=== PATIENT | male | born 1985 | race Caucasian/White ===

== ENCOUNTER 2018-12-23 23:38 | Emergency (ER) | payer BC, SELFPAY ==
[2018-12-23 23:39] VITALS: BP 152/93; PULSE 84; RESP 14; TEMP 36.3; O2SAT 96; BMI 38.5
--- NOTE | 2018-12-24 | CT_ITS ---
STUDY: CT ABDOMEN AND PELVIS WITHOUT CONTRAST REASON FOR EXAM: Male, 33 years old. Left flank pain. RADIATION DOSAGE (If Supplied By Facility): CTDIvol = ( 18.95 ) mGy, DLP = ( 1046.20 ) mGycm TECHNIQUE: Transaxial images were obtained from the dome of the diaphragm to the symphysis pubis without oral contrast, and without intravenous contrast. Sagittal and coronal images were reconstructed. Individualized dose optimization techniques were used for this CT. COMPARISON: None. FINDINGS: The visualized lung bases are unremarkable. The visualized portions of the heart are within normal limits. Small hiatal hernia. Normal liver. Normal gallbladder and extrahepatic biliary system. Normal spleen. Normal pancreas. Normal bilateral adrenal glands. Normal right kidney. Mild left hydronephrosis secondary to a 2 mm x 1 mm ureterovesicular junction stone. Normal visualized stomach. Normal small intestine. Normal colon. The appendix is visualized and appears normal. Normal abdominal aorta. Normal inferior vena cava. Normal retroperitoneum. No intra-abdominal free air. Normal urinary bladder. Prostate gland not enlarged. Normal abdominal wall. Normal osseous structures. CT/Abdomen/Pelvis without Cont IMPRESSION: Mild left hydronephrosis secondary to a 2 mm x 1 mm ureterovesicular junction stone. Small hiatal hernia. Electronically Signed: Kavon Way MD at 1:10 EST , Service support ,
[2018-12-24] MEDS: Ondansetron 4 MG/2 ML Vial IV (00:08)
[2018-12-24] MEDS: 0.9% Normal Saline 1,000 ML 1000 ML IV (00:08)
[2018-12-24] MEDS: Ketorolac 30 MG/ML Syringe IV (00:08)
[2018-12-24 00:09] LABS: White Blood Cells 0 SEEN /hpf (0-5)
[2018-12-24 00:13] LABS: Color, Urine Yellow (Yellow); Glucose, Dipstick Normal (Normal); Ketone-Dipstick Negative (Negative); Leukocyte Esterase-Dipstick Negative /ul (Negative); Nitrite-Dipstick Negative (Negative); Occult Blood-Urine 50 /ul (Negative); Protein-Dipstick 15 mg/dl (Negative); Urine Bilirubin Dipstick Negative (Negative); Urine Clarity Clear (Clear); Urine Urobilinogen Normal (Normal)
[2018-12-24 00:23] LABS: Bacteria RARE /hpf (None Seen); Mucous, Urine 1+ /hpf (<or=2+); Red Blood Cells-Urine 5-10 SEEN /hpf (0-5)
[2018-12-24 00:24] LABS: Squamous Epithelial Cells - UA 0-5 SEEN /hpf (0-5)
[2018-12-24 00:37] LABS: Absolute Lymphocyte Count 3.68 X10^3/ul (0.83-4.51); Absolute Neutrophil Count 4.6 X10^3/uL (2.0-7.7); Basophil# 0.03 X10^3/uL; Basophil% 0.3 % (0-1); Eosinophil# 0.32 X10^3/uL; Eosinophils% 3.3 % (0-5); Hematocrit 46.4 % (40-54); Hemoglobin 16.5 g/dl (13.0-16.5); Lymphocyte # 3.68 X10^3/ul (4.0); Lymphocyte % 38.3 % (19-41); Mean Corp Hgb Conc 35.6 g/gl (32-36); Mean Corpuscular Hgb 30.1 pg (27.0-32.0); Mean Corpuscular Volume 84.5 fL (80-94); Mean Platelet Vol. 10.7 fl (6.2-12.0); Monocyte% 9.4 % (0-10); Neutrophil # 4.64 X10^3/uL (2.7-7.7); Neutrophil % 48.3 % (47-70); POSITIVE COUNT NO; POSITIVE DIFFERENTIAL NO; POSITIVE MORPHOLOGY NO; Platelet Count 242 K/mm3 (150-450); RBC Distribution Width CV 12.1 % (11.6-14.6); RBC Distribution Width SD 37.1 fl (35.1-43.9); Red Blood Count 5.49 M/mm3 (4.6-6.2); White Blood Count 9.6 K/mm3 (4.4-11.0)
[2018-12-24 00:46] LABS: Anion Gap 9 (5-15); BUN 13 mg/dL (7-18); BUN/Creat Ratio 13.4 RATIO (10-20); Calcium,Total 8.8 mg/dL (8.5-10.1); Chloride 106 mmol/L (98-107); Creatinine, Serum 0.97 mg/dL (0.70-1.30); EST Glomerular Filtration Rate 96 mL/min (>60); Est Glom Filt Rate - Afr Amer 116 mL/min (>60); Estimated Creatinine Clearance 103.16 ml/min; Glucose 86 mg/dL (74-106); Potassium 3.7 mmol/L (3.5-5.1); Sodium Level 142 mmol/L (136-145)
[2018-12-24 01:04] VITALS: RESP 16
[2018-12-24 01:08] VITALS: PULSE 79; RESP 16; O2SAT 96
--- NOTE | 2018-12-24 01:35 | ED.DEP ---
ED Disposition - Plan for ED Patient: Instructions: ED Stone Renal W Colic Prescriptions: Oxycodone HCl/Acetaminophen [Percocet 5/325] 1 tab PO Q6H PRN PRN 3 Days #12 tab PRN Reason: Pain Tamsulosin HCl [Flomax] 0.4 mg PO DAILY #7 cap Referrals: Karla Conrad [Primary Care Provider] - Ilia Murcia MD [STAFF PHYSICIAN] -
[2018-12-24 01:55] VITALS: BP 142/60; PULSE 75; RESP 16; O2SAT 96
--- NOTE | 2018-12-24 07:40 | ED.VISSUMM ---
- ER Visit Summary Date of Service: 12/24/18 Chief Complaint: Abdominal pain History of Present Illness: The patient is a 33 M who presents with abdominal pain. It is been present for 1-1/2 hours. It is sharp. It is located in the left lower quadrant and radiates to the groin and testicle. He also complains of left flank pain. No fever chest pain shortness of breath vomiting diarrhea. He denies any medical history. Physical Examination: Afebrile vitals unremarkable Moist mucous membranes Heart regular rate and rhythm Lungs are clear Abdomen soft he does have some left lower quadrant tenderness No flank or CVA tenderness Test Results: CBC BMP normal. Urinalysis shows 50 blood, 5-[address] of the abdomen and pelvis without contrast shows mild left hydronephrosis with a 2 x 1 mm UVJ calculus. Emergency Department Course and Treatment: Patient was treated here with IV fluids Toradol Zofran. On reevaluation he had red solution of pain. Prior to discharge he did begin to have some return and was given oxycodone. Given symptoms are well controlled with a distal small calculus I do believe he is a good candidate for expectant management. He was given prescriptions for Percocet and Flomax. He was referred to urology for follow-up and discharged home. He understands to return for new or worsening symptoms. Treatment Plan: [] Disposition: Discharge Impression: Ureterolithiasis This note was generated with [employer] dictation software. It may contain incorrect words, spelling, and punctuation that were not noted in review of the chart prior to signing ED Disposition - Plan for ED Patient: Disposition: Home or Assisted Living Instructions: ED Stone Renal W Colic Prescriptions: Oxycodone HCl/Acetaminophen [Percocet 5/325] 1 tab PO Q6H PRN PRN 3 Days #12 tab PRN Reason: Pain Tamsulosin HCl [Flomax] 0.4 mg PO DAILY #7 cap Referrals: Karla Conrad [Primary Care Provider] - Ilia Murcia MD [STAFF PHYSICIAN] -
== END 2018-12-24 01:55 | disposition home or self-care (01) ==
PROVIDERS: Emergency Provider Emergency Medicine; Family Provider Family Medicine; PCP Family Medicine
DX: N13.2 Hydronephrosis with renal and ureteral calculous obstruction (principal)
CPT/HCPCS: 74176; 80048; 81001; 85025; 96361; 96374; 96375; 99284; J7030; A4216; J2405

== ENCOUNTER 2020-03-26 16:46 | Emergency (ER) | payer BC, SELFPAY ==
[2020-03-26 16:47] VITALS: BP 138/100; PULSE 88; RESP 16; TEMP 36.3; O2SAT 97; BMI 37.6
--- NOTE | 2020-03-26 17:28 | ED.VIS.LOWEX ---
History of Present Illness Chief Complaint: Laceration Informant: Patient Occurred: Today Mechanism/Context: Injury - accidentally stepped on something while walking inside his house barefoot Context: Sudden Onset Timing: Continuous Quality of Pain: - - sore Current Severity: Mild Maximum Severity: Mild Worsened by: palpation/walking Relieved by: leaving alone Associated Symptoms: Negative for: Parasthesia, Weakness, Loss of Funtion Narrative: Sustained a laceration that he is concerned may need stitches. No other injuries. Tetanus Immunization: <5 years Past Medical History - Allergies and Home Meds Allergies/Adverse Reactions: Allergies No Known Allergies Allergy (Verified 03/26/20 16:47) Primary Care Physician: Karla Conrad MD [Primary Care Provider] - Lives: With Family Smoking Status: Never smoker Review of Systems Musculoskeletal: Reports: Extremity Pain Skin: Reports: Wounds Neurological: Denies: Headache, Weakness, Numbness Physical Exam Vital Signs/Narrative: Vital Signs Temp Pulse Resp BP Pulse Ox 03/26/20 16:47 97.3 F L 88 16 138/100 H 97 Inital Vital Signs reviewed: Yes - Extremity Exam Left Toe: - - There is a 1 cm full-thickness subcutaneous clean appearing linear laceration to the crease at the IP joint at the plantar aspect of the left fifth toe. No bony tenderness.. Negative for: Deformity, Limited ROM General: Well nourished, Well developed Head: Normocephalic, Atraumatic Skin: Normal color, No rash, Trauma - 1 cm laceration left fifth toe as above Neurological: Alert, Oriented x3, Cranial nerves II-XII grossly intact, Normal Strength, Normal Sensation, Normal Gait Psychological: Normal affect, Normal Mood Diagnostic/Tx/Re-eval - Medical Decision Making Laceration was repaired with 2 skin interrupted nylon sutures. I do not think x-rays are needed. The area is clean and cleansed thoroughly. Suture removal in 7-10 days will likely be adequate. We discussed watching for signs or symptoms of infection, I think it is unlikely to occur and I do not think prophylactic antibiotics are needed. He is agreeable. Procedures - Lacerations left 5th toe Length: 1 cm Depth: Skin Shape: Linear Prep: Sterile Conditions, Chlorhexadine Laceration repair: Irrigated, Lidocaine with epi - topically only Irrigated (ml): 60 Number of Sutures/Kezia: 2 Suture Information: Ethilon, Simple, 4-0 ED Disposition - Plan for ED Patient: Disposition: Home or Assisted Living Diagnosis: Laceration of lesser toe of left foot w/o FB w/o damage to nail Instructions: ED Laceration Foot Referrals: Karla Conrad MD [Primary Care Provider] - 10 Day for suture removal
[2020-03-26] MEDS: Lidocaine/Epi/Tetracaine 50 ML 1 APPLIC TOPICAL (17:37)
[2020-03-26 19:51] VITALS: BP 135/96; PULSE 88; RESP 16; O2SAT 99
== END 2020-03-26 19:53 | disposition home or self-care (01) ==
PROVIDERS: Emergency Provider Emergency Medicine; PCP Family Medicine
DX: S91.115A Laceration without foreign body of left lesser toe(s) without damage to nail, initial encounter (principal); Y93.01 Activity, walking, marching and hiking
CPT/HCPCS: 12001; 99284

== ENCOUNTER 2022-12-24 01:23 | Emergency (ER) | payer BC, SELFPAY ==
[2022-12-24 01:24] VITALS: BP 170/120; PULSE 78; RESP 24; TEMP 36.4; O2SAT 99; BMI 38.0
--- NOTE | 2022-12-24 01:39 | CT_ITS ---
EXAM: CT ABDOMEN AND PELVIS WITH INTRAVENOUS CONTRAST CLINICAL INDICATION: epigastric abd pain epigastric abd pain TECHNIQUE: Helically acquired images were obtained of the abdomen and pelvis with intravenous contrast. This CT exam was performed using one or more of the following dose reduction techniques: automated exposure control, adjustment of the mA and/or kV according to patient size, and/or use of iterative reconstruction technique. This report was created using [employer] report generation technology. CONTRAST: IV 100mL Isovue-370 RADIATION DOSE: CTDIvol = 5.92 mGy, DLP = 1314.92 mGy-cm COMPARISON: None. FINDINGS: LOWER THORAX: Unremarkable. Lung bases are clear. No cardiomegaly. No significant pericardial effusion. ABDOMEN: LIVER: Unremarkable. Homogeneous. No focal mass. GALLBLADDER AND BILE DUCTS: Unremarkable. No calcified gallstones. No gallbladder distention or wall edema. No intra- or extrahepatic biliary ductal dilation. PANCREAS: Unremarkable. No focal cystic or solid mass. SPLEEN: The spleen is mildly enlarged. ADRENALS: Unremarkable. No nodules. KIDNEYS AND URETERS: Unremarkable. Normal renal size and position. No hydronephrosis. STOMACH AND BOWEL: Unremarkable. No stomach or bowel distention. No focal inflammatory change. PELVIS: APPENDIX: A normal appendix is seen on axial images 74-92. BLADDER: Unremarkable. REPRODUCTIVE: Unremarkable as visualized. No mass. ABDOMEN and PELVIS: INTRAPERITONEAL SPACE: Unremarkable. No ascites or other fluid collection. No free air. BONES/JOINTS: There is bilateral spondylolysis at the L5 level without associated spondylolisthesis. No suspicious lytic or blastic abnormality. SOFT TISSUES: Unremarkable. No discrete abdominal or pelvic wall hernia. VASCULATURE: Unremarkable. Abdominal aorta is non-dilated. LYMPH NODES: Unremarkable. No enlarged lymph nodes. CT/Abdomen/Pelvis W IV Cont ONLY IMPRESSION: 1. Mild splenomegaly. 2. Bilateral spondylolysis at the L5 level, without associated spondylolisthesis. 3. No evidence for acute pathology. Electronically Signed: Satnam Campbell MD at 3:42 EST Reading Location ID and State: [facility] / [place] , Service support ,
--- NOTE | 2022-12-24 01:40 | EKG12_ITS ---
Test Reason : ABD PAIN Blood Pressure : / mmHG Vent. Rate : 073 BPM Atrial Rate : 073 BPM P-R Int : 136 ms QRS Dur : 088 ms QT Int : 380 ms P-R-T Axes : 011 000 054 degrees QTc Int : 418 ms Normal sinus rhythm Low voltage QRS (Limb Leads) Confirmed by MARCELINA BECKWITH, IVAN ([id number]), business editor KATARINA HERNANDEZ ([id number]) on 12/24/2022 10:23:22 AM Referred By: Confirmed By:IVAN HEWITT MD
[2022-12-24] MEDS: 0.9% Normal Saline 1,000 ML 1000 ML IV (01:44)
[2022-12-24] MEDS: Ondansetron 4 MG/2 ML Vial IV (01:44)
[2022-12-24] MEDS: Morphine 4 MG/ML Syringe IV (01:44)
[2022-12-24 01:50] LABS: Absolute Neutrophil Count 4.1 X10^3/uL (2.0-7.7); Basophil# 0.06 X10^3/uL; Basophil% 0.7 % (0-1); Eosinophil# 0.24 X10^3/uL; Eosinophils% 2.7 % (0-5); Hematocrit 47.8 % (40-54); Lymphocyte % 39.4 % (19-41); Mean Corp Hgb Conc 33.5 g/dL (32-36); Mean Corpuscular Hgb 28.6 pg (27.0-32.0); Mean Corpuscular Volume 85.5 fL (80-94); Mean Platelet Vol. 10.8 fl (6.2-12.0); Monocyte# 0.92 X10^3/uL; Monocyte% 10.4 % (0-10); NRBC Flagged by Analyzer 0 % (0-5); Neutrophil # 4.13 X10^3/uL (2.7-7.7); Neutrophil % 46.5 % (47-70); Platelet Count 248 K/mm3 (150-450); RBC Distribution Width CV 11.9 % (11.6-14.6); RBC Distribution Width SD 36.8 fl (35.1-43.9); Red Blood Count 5.59 M/mm3 (4.6-6.2); White Blood Count 8.9 K/mm3 (4.4-11.0)
[2022-12-24 02:11] LABS: ALB/GLOB Ratio 1.1 RATIO (0.9-2.4); AST(SGOT) 19 U/L (15-37); Alanine Aminotransfer ALT/SGPT 47 U/L (16-61); Albumin, Serum 4.1 g/dL (3.2-5.0); Alkaline Phosphatase 80 U/L (45-117); Anion Gap 8 (5-15); BUN 16 mg/dL (7-18); BUN/Creat Ratio 13.7 RATIO (10-20); Calcium,Total 9.1 mg/dL (8.5-10.1); Chloride 106 mmol/L (98-107); Creatinine, Serum 1.17 mg/dL (0.70-1.30); EST Glomerular Filtration Rate 75 mL/min (>60); Est Glom Filt Rate - Afr Amer 91 mL/min (>60); Estimated Creatinine Clearance 90.99 ml/min; Globulin 3.7 g/dL (2.2-4.2); Glucose 124 mg/dL (74-106); Lipase 254 U/L (73-393); Potassium 3.6 mmol/L (3.5-5.1); Protein, Total 7.8 g/dL (6.4-8.2); Sodium Level 143 mmol/L (136-145)
[2022-12-24 02:35] LABS: Lactic Acid 1.2 mmol/L (0.4-1.9)
--- NOTE | 2022-12-24 03:36 | EDS_ITS ---
HPI HPI - GI History of Present Illness Chief Complaint: Abd Pain Informant: patient Narrative Narrative: Patient is a 37-year-old male who denies any significant past medical history presented with sudden onset of epigastric abdominal pain that radiates to his back. He describes it as sharp in nature. Has some mild nausea but no vomiting. States he felt well earlier in the day. Had chicken noodle soup for dinner. 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 Denies any surgical history. There is any chest pain. Denies any known family history of significant heart problems especially at a young age however he states he is not really sure. Denies any urinary symptoms. There is a history of kidney stones. No other complaints at this time. PFSH PFSH Medical History no medical history Home Medications famotidine 20 mg tablet (Pepcid) 20 mg PO BID #28 tabs 12/24/22 [Rx Last Taken Unknown] Allergy/AdvReac Type Severity Reaction Status Date / Time No Known Allergies Allergy Verified 12/24/22 01:25 Social History Smoking Status: Never smoker ROS ROS ED Constitutional Constitutional ED: Denies chills or fever(s) ENT ENT ED: Denies sore throat Cardiovascular Cardiovascular: Denies chest pain Respiratory/Chest Respiratory/Chest: Denies cough or dyspnea Gastrointestinal Gastrointestinal: Reports abdominal pain and nausea; Denies constipation, diarrhea or vomiting Genitourinary Genitourinary ED: Denies dysuria or hematuria Musculoskeletal Musculoskeletal: Denies arthralgias or myalgias Integumentary Denies rash Neurologic Neurologic: Denies headache(s) or weakness Hematologic/Lymphatic Hematologic/Lymphatic: Denies easy bleeding or easy bruising EXAM Physical Exam Const Vital Signs: 12/24/22 01:24 Temperature 97.5 F L Temperature Source Oral Pulse Rate 78 Respiratory Rate 24 H Blood Pressure 170/120 H Blood Pressure Mean 136 Pulse Ox 99 Oxygen Delivery Method Room Air Positive well nourished and well developed Constitutional Narrative: Uncomfortable appearing, diaphoretic General Appearance ED: well developed; Negative for pallor HEENT Reports moist mucous membranes normocephalic and atraumatic Eyes PERRL and EOMs intact bilaterally Neck supple and no JVD Resp normal respiratory effort Effort and Inspection: Negative for respiratory distress Cardio regular rate and regular rhythm GI Inspection: abdominal distention Palpation: soft and tender epigastric; Negative for guarding or rigid Back/Spine no CVA tenderness Extremity full ROM Neuro moves all extremities Sensorium / Orientation: alert, oriented to person, oriented to place and oriented to time Psych mental status grossly normal and thought process normal Skin no wounds General Skin Exam: Negative for jaundice or pallor MDM MDM MDM Narrative Medical decision making narrative: Patient evaluated for cute onset of abdominal pain. Says epigastric region and radiates to his back. Differential includes pancreatitis, cholecystitis, stomach ulcer, perforated ulcer, GERD and less likely aortic or cardiac pathology. Bedside ultrasound performed by myself this patient is diaphoretic and hypertensive. I do not see any free fluid, obvious free air or other acute abnormalities. He actually is now starting to have improvement of his pain/symptoms. He is ordered fluids, morphine and Zofran on repeat evaluation his pain is resolved he is feeling much better. Work-up including a CBC, CMP and lipase is largely normal. His total bilirubin is mildly elevated at 1.3 and I do not have a prior to compare to. He does not have a transaminitis. CT of the abdomen pelvis shows mild splenomegaly, bilateral spondylosis of L5 level and no acute process. Patient is informed of these findings. His presentation is not consistent with splenal infarct he is not have tenderness in his left upper quadrant. He denies any trauma. He denies any fever or recent illnesses that you might see with mononucleosis. He does have a slight monocyte predominance however given his symptoms with been present for 1 day I do not think there is high utility for obtaining a Monospot test. I have a low suspicion for pancreatitis given normal CT and normal lipase. Low suspicion for passing a gallstone or biliary colic however it is on the differential. Patient will be started on an antacid and given referral for GI. Counseled the symptoms return/worsen or progress he should return to the ER as the exact cause of his presentation is not entirely clear. At this time given the resolution of his symptoms I think he is stable for outpatient follow-up. Counseled on a low acid and low-fat diet. Discharged home in stable and improved condition. Lab Data Attestation: I reviewed the patient's lab results. Labs: Laboratory Results - last 24 hr 12/24/22 12/24/22 12/24/22 01:44 01:44 01:44 WBC 8.9 RBC 5.59 Hgb 16.0 Hct 47.8 MCV 85.5 MCH 28.6 MCHC 33.5 RDW Std Deviation 36.8 RDW Coeff of Brad 11.9 Plt Count 248 MPV 10.8 Immature Gran % (Auto) 0.300 Neut % (Auto) 46.5 L Lymph % (Auto) 39.4 Culberson % (Auto) 10.4 H Eos % (Auto) 2.7 Baso % (Auto) 0.7 Absolute Neuts (auto) 4.1 Absolute Lymphs (auto) 3.50 Nucleated RBC % 0 Sodium 143 Potassium 3.6 Chloride 106 Carbon Dioxide 29.0 Anion Gap 8 BUN 16 Creatinine 1.17 Estim Creat Clear Calc 90.99 Est GFR (MDRD) Af Amer 91 Est GFR (MDRD) Non-Af 75 BUN/Creatinine Ratio 13.7 Glucose 124 H Lactic Acid 1.2 Calcium 9.1 Total Bilirubin 1.30 H AST 19 ALT 47 Alkaline Phosphatase 80 Total Protein 7.8 Albumin 4.1 Globulin 3.7 Albumin/Globulin Ratio 1.1 Lipase 254 Radiography Diagnostic Testing: Clinical Impression(s) from Imaging Studies Abdomen/Pelvis CT 12/24/22 01:39 IMPRESSION: 1. Mild splenomegaly. 2. Bilateral spondylolysis at the L5 level, without associated spondylolisthesis. 3. No evidence for acute pathology. Electronically Signed: Satnam Campbell MD at 3:42 EST Reading Location ID and State: [facility] / [place] , Service support , Rhythm Strip Rhythm Strip: Sinus Rhythm Rate: 73 Ectopy: None EKG Initial EKG: Attestation: I personally reviewed and interpreted this EKG as follows: Interpretation: Sinus Rhythm Comments: Normal sinus rhythm rate of 73 bpm Normal axis Normal intervals Normal ST segments Discharge Plan Triage Chief Complaint: Abd Pain ED Provider: Jory Bowens Dx/Rx/DC Orders Clinical Impression: Epigastric abdominal pain of unknown etiology Instructions: ED Epigastric Pain Uncertain Cause Prescriptions: New famotidine [Pepcid] 20 mg tablet 20 mg PO BID Qty: 28 0RF Primary Care Provider: Care Physician,No Primary Referrals: Friend,DO Benja [Med Staff - Active Staff] - As soon as possible Care Physician,No Primary [Primary Care Provider] - Activity Restrictions/Additional Instructions: Your work-up was largely normal. The exact cause your symptoms is not clear however Patrick to an antacid in case this is a stomach ulcer. Your CT did show some mild enlargement of the spleen. Again please follow-up with the GI or your primary care doctor for further evaluation of this. If you develop more lo calized pain in the left upper abdomen please return to the emergency room. Disposition Disposition: Home, Self Care
[2022-12-24 04:18] LABS: Bacteria 0 SEEN /hpf (None Seen); Mucous, Urine 0 SEEN /hpf (<or=2+); Red Blood Cells-Urine 0 SEEN /hpf (0-5); Squamous Epithelial Cells - UA 0 SEEN /hpf (0-5); White Blood Cells 0 SEEN /hpf (0-5)
[2022-12-24 04:21] LABS: Color, Urine Yellow (Yellow); Glucose, Dipstick Normal (Normal); Ketone-Dipstick Negative (Negative); Leukocyte Esterase-Dipstick Negative /ul (Negative); Nitrite-Dipstick Negative (Negative); Occult Blood-Urine Negative /ul (Negative); Protein-Dipstick Negative (Negative); Urine Bilirubin Dipstick Negative (Negative); Urine Clarity Clear (Clear); Urine Urobilinogen Normal (Normal)
[2022-12-24 04:30] VITALS: BP 118/82; PULSE 62; RESP 18; O2SAT 98
== END 2022-12-24 04:48 | disposition home or self-care (01) ==
PROVIDERS: Emergency Provider Emergency Medicine; Visit Provider Emergency Medicine
DX: R10.13 Epigastric pain (principal)
CPT/HCPCS: 74177; 80053; 81001; 83605; 83690; 85025; 93005; 96361; 96374; 96375; 99283; J7030; Q9967; A4216; J2405

== ENCOUNTER 2023-03-03 09:44 | Day surgery (SDC) | payer BC, SELFPAY ==
--- NOTE | 2023-03-03 | ESO_PTH ---
PATIENT: JIMENA READ LOC: EN U#:[id number] AGE/SX: 38/M ROOM: RE03/03/[address]: Dr. Benja Morton DO : 1985 BED: DIS: 03/03/2023 SPEC #: [id number] RECD: 03/03/23 13:12 STATUS: ETTA REChristine #: [id number] RHETT: 03/03/23 00:[address]: Benja Morton DEPT: SURGICAL PATHOLOGY RECD BY: Landon Kern ENTERED: 03/03/23 13:12 SP TYPE: NASIMA EDWARDS DR: No Primary Care Phys Tissues: Esophagus, NOS Procedures: Special Stain Group II Surgery Specimen Level IV Alcian Blue/PAS (control) HEADER OPERATION: EGD ([facility] [place]), biopsy PRE-OP DIAGNOSIS: Acid reflux TISSUE SUBMITTED: Distal esophagus biopsy MICROSCOPIC DIAGNOSIS Distal esophagus, biopsy: Gastroesophageal junctional mucosa with mild chronic inflammation. Changes of reflux esophagitis. No evidence of goblet cell metaplasia. See comment. AM:dinah 03/04/2023 COMMENT Alcian blue/PAS stain with matched control supports the above diagnosis. MICROSCOPIC DESCRIPTION Slides are reviewed. GROSS DESCRIPTION Received in fixative is one container labeled with the patient's name and designated distal esophagus. The specimen consists of multiple irregular fragments of light carroll soft tissue that in aggregate measure 1.0 x 0.5 x 0.1 cm. The specimen is totally submitted in one cassette. / AM:dinah 03/03/2023 TC:3 CPT: 57458
[2023-03-03 10:20] VITALS: BP 139/99; PULSE 78; RESP 16; TEMP 36.3; O2SAT 100; BMI 39.5
[2023-03-03] MEDS: Lactated Ringers 1,000 ML 15 ML IV (10:28)
--- NOTE | 2023-03-03 10:32 | PCM.HP.BLA ---
History and Physical Date of Admission: 03/03/23 37 M who presents to the office today for Initial consult. PMH shingles. [facility] ED 12.24.18 with LLQ abd pain radiating into groin/testicles and L flank pain without N/V/D or CP. Biochemical workup and imaging without acute concern; likely distal small calculus and discharged with Flomax, pain medication and referral to urology. ?CT abd/pel?normal liver and spleen; small hiatal hernia; mild left hydronephrosis secondary to 2x1mm ureterovesicular stone. [facility] 12.24.22 with epigastric/abdominal pain radiating into the back with mild nausea without emesis; went to bed with this pain and continued to get worse throughout the night. Recalls similar symptoms 15 years prior with use of antacid for management. Imaging and biochemical workup completed without acute finding and discharged with famotidine 20mg. Reports symptom improvement with IVF. ?Biochemical workup?CBC, CMP, lactic acid, LFT, lipase without pertinent abnormality. ? T.bili H1.30 ?CT abd/pel?normal liver; mild splenomegaly; bilateral spondylolysis without spondylolisthesis. *BGI established 12.26.[address] [facility] ED presentation. Abdominal/epigastric pain had resolved with an improvement of nausea. On a routine basis he is having heartburn with TUMs administration midday which is helpful. He does clear his throat a lot r/t an abnormal sensation in the back of his throat, possible allergy component. ROS Const Constitutional: No anorexia, fatigue, fever(s), weight change or sleep problems Eyes Eyes: No change in vision ENT ENT: No abnormal hearing, difficulty swallowing, mouth lesions, tongue swelling or throat swelling Resp Respiratory: No cough or shortness of breath Cardio Cardiology: No chest pain at rest, chest pain with exertion, shortness of breath or dyspnea on exertion Gastro GI: No difficulty swallowing Genitourinary Male: No difficulty urinating or burning urination Musc Musculoskeletal: No joint pain, joint swelling, muscle weakness or decreased muscle mass Skin Skin: No hair loss in leg, yellowing of the eye, itchy eyes, rash, skin ulcer or skin swelling Neuro Neurology: No abnormal hearing, abnormal movements, confusion, unsteady gait/balance or memory loss Psych Psychiatric: No anxiety, No confusion and No memory loss Endo Endocrine: No fatigue or weight change Aller/Imm Allergy/Immunologic: No itchy eyes, throat swelling or tongue swelling David/Lymp Hematologic/Lymphatic: No easy bleeding, easy bruising or enlarged lymph nodes Exam Const General: cooperative and comfortable Nutritional Appearance: average body habitus and well nourished HENUT Head: normal to inspection Ears: hearing grossly normal bilaterally Nose: external nose normal Face and sinus: normal facial exam Mouth: oral mucosae normal Throat: posterior oropharynx normal Eyes General: appearance normal, both eyes and all related structures Neck Neck: normal visual inspection Chest Chest palpation & inspection: normal inspection of the chest and normal palpation of entire chest wall Resp Effort & Inspection: normal respiratory effort Auscultation: Bilateral: Clear to Auscultation Cardio Palpation: normal PMI Rate: regular rate Rhythm: regular rhythm GI Inspection: normal to inspection Auscultation: normal bowel sounds Percussion: normal to percussion Palpation: no hepatosplenomegaly Skin General: no rashes or lesions noted Neuro General: patient alert Extrem General: normal to inspection Psych Affect: normal affect Quality Reporting Tobacco Screening ([facility] 138) Smoking Status: Never smoker Assessment and Plan Assessment and Plan (1) Acid reflux: ?Status:?Chronic ?Plan: He has signs and symptoms of classic gastroesophageal reflux disease.? I will put him on pantoprazole 40 mg p.o. twice daily and we will perform an upper endoscopy to evaluate him for Reardon's esophagus.? He was explained alternatives, risk, benefits including outstanding bleeding, infection, sepsis, perforation, need for emergent urgent .? He will have an ASA of 1. ? ? ? Medications: New pantoprazole 40 mg PO BID 60 tabs 3RF ? ? Is I have examined the patient and the H&P has been reviewed. There are no clinical changes since date of exam.
--- NOTE | 2023-03-03 11:29 | OP.CCLET_ITS ---
03/03/2023 No Primary Care Physician Re : Upper GI endoscopy procedure for Calvin Norwood Dear Care Physician This procedure was performed on Friday, March 03, 2023. My impressions and recommendations are as follows: Impressions : - LA Grade C reflux esophagitis. Biopsied. - Normal stomach. - Normal second portion of the duodenum. Biopsied. Recommendations : - Discharge patient to home. - Resume previous diet. - Continue present medications. - Await pathology results. My findings are described in the full procedure note, which is enclosed. If I can be of further assistance, please feel free to contact me at . Sincerely, Benja Morton, 03/03/2023 11:29:04 AM This report has been signed electronically.
--- NOTE | 2023-03-03 11:29 | OP.EGD_ITS ---
Patient Name: Calvin Norwood Procedure Date: 03/03/2023 11:11 AM Date of : 1985 Age: 38 Procedure: Upper GI endoscopy Indications: Heartburn Providers: Benja Morton DO Referring MD: Benja Morton DO Medicines: Monitored Anesthesia Care Patient Profile: This is a 38 year old male. Refer to note in patient chart for documentation of history and physical. Patient has symptoms of chronic heartburn. Complications: No immediate complications. Procedure: Pre-Anesthesia Assessment: - Prior to the procedure, a History and Physical was performed, and patient medications and allergies were reviewed. The risks and benefits of the procedure and the sedation options and risks were discussed with the patient. All questions were answered and informed consent was obtained. Patient identification and proposed procedure were verified by the physician in the pre-procedure area. Mental Status Examination: alert and oriented. Airway Examination: normal oropharyngeal airway and neck mobility. Respiratory Examination: clear to auscultation. CV Examination: normal. Prophylactic Antibiotics: The patient does not require prophylactic antibiotics. Prior Anticoagulants: The patient has taken no previous anticoagulant or antiplatelet agents. After reviewing the risks and benefits, the patient was deemed in satisfactory condition to undergo the procedure. The anesthesia plan was to use monitored anesthesia care (MAC). Immediately prior to administration of medications, the patient was re-assessed for adequacy to receive sedatives. The heart rate, respiratory rate, oxygen saturations, blood pressure, adequacy of pulmonary ventilation, and response to care were monitored throughout the procedure. The physical status of the patient was re-assessed after the procedure. After obtaining informed consent, the endoscope was passed under direct vision. Throughout the procedure, the patient's blood pressure, pulse, and oxygen saturations were monitored continuously. The Endoscope was introduced through the mouth, and advanced to the second part of duodenum. The upper GI endoscopy was accomplished without difficulty. The patient tolerated the procedure well. Scope In: 11:20:47 AM Scope Out: 11:23:56 AM Total Procedure Duration Time 0 hours 3 minutes 9 seconds Findings: LA Grade C (one or more mucosal breaks continuous between tops of 2 or more mucosal folds, less than 75% circumference) esophagitis with no bleeding was found 35 to 38 cm from the incisors. Biopsies were taken with a cold forceps for histology. Verification of patient identification for the specimen was done. Estimated blood loss was minimal. The entire examined stomach was normal. The second portion of the duodenum was normal. Biopsies were taken with a cold forceps for histology. Verification of patient identification for the specimen was done. Estimated blood loss was minimal. Impression: - LA Grade C reflux esophagitis. Biopsied. - Normal stomach. - Normal second portion of the duodenum. Biopsied. Recommendation: - Discharge patient to home. - Resume previous diet. - Continue present medications. - Await pathology results. Procedure Code(s): --- Professional --- 70485, Esophagogastroduodenoscopy, flexible, transoral; with biopsy, single or multiple CPT copyright 2017 [employer]. All rights reserved. The codes documented in this report are preliminary and upon supervisor dry cleaning review may be revised to meet current compliance requirements. Benja Morton DO 03/03/2023 11:29:04 AM This report has been signed electronically. Number of Addenda: 0 Note Initiated On: 03/03/2023 11:11 AM
[2023-03-03 11:30] VITALS: BP 139/99; BP 143/73; PULSE 84; RESP 16; TEMP 36.7; O2SAT 95
[2023-03-03 11:35] VITALS: BP 128/79; BP 139/99; PULSE 78; RESP 16; O2SAT 94
[2023-03-03 11:40] VITALS: BP 118/87; BP 139/99; PULSE 79; RESP 16; O2SAT 94
[2023-03-03 11:45] VITALS: BP 123/84; BP 139/99; PULSE 73; RESP 16; TEMP 36.7; O2SAT 94
[2023-03-03 12:12] VITALS: BP 139/99
== END 2023-03-03 12:14 | disposition home or self-care (01) ==
LOC: EN 09:48 → AC 09:49
PROVIDERS: Visit Provider Internal Medicine Gastroenterology
PROC: 0DJ08ZZ Inspection of Upper Intestinal Tract, Via Natural or Artificial Opening Endoscopic (ICD-10-PCS; CPT 43235; principal; 2023-03-03 11:10)
DX: K21.00 Gastro-esophageal reflux disease with esophagitis, without bleeding (principal); Z79.899 Other long term (current) drug therapy
CPT/HCPCS: 43239; 88305; 88313; J7120; J2405

== ENCOUNTER 2024-09-11 22:16 | Observation (INO) | payer BC, SELFPAY ==
[2024-09-11 22:17] VITALS: BP 187/127; PULSE 72; RESP 18; TEMP 36.6; O2SAT 98; BMI 40.8
--- OUTSIDE RECORDS SUMMARY | 2024-09-11 22:43 | XMS RPT_ITS | CCD ---
Author Organization [facility] Care Team Providers Care Medical Affairs Manager Name Role Phone BERE CONRAD Unavailable Unavailable JUAN JOSÉI, ALEXELIDIA Unavailable Unavailable NO REFERRING DR Unavailable Unavailable Juan Joséi Alexelidia Primary Care Provider Juan JoséiBere Primary Care Provider [phone] LiscathyskiJimenaia Primary Care Provider LISZECHARIAHI, ALEXIA Primary Care Unavailable BARB TALAVERA Attending Unavailable LISRICKEYEVLUCYI, BERE Primary Care Unavailable LISRICKEYEVLUCYI, ALEXIA Primary Care Unavailable LISRICKEYEVSKI, ALEXIA Primary Care Unavailable LISZECHARIAHI, ALEXIA Primary Care Unavailable Juan Joséi Alexia Primary Care Provider Medications Current Medications Medication Drug Class(es) Dates Sig (Normalized) Sig (Original) amoxicillin 875 mg oral tablet (2 sources) Penicillin-class Antibacterial Start: 07-28-2023 End: 08-04-2023 take 1 tablet by mouth twice daily amoxicillin (AMOXIL) 875 mg tablet Indications: Acute otitis media, right Take 1 tablet by mouth twice daily for 7 days. 14 tablet 0 07/28/2023 08/04/2023 Active Start: 09-02-2022 End: 09-12-2022 take 1 capsule by mouth twice daily amoxicillin (POLYMOX, AMOXIL) 500 mg capsule Indications: Strep throat Take 1 capsule by mouth twice daily for 10 days. 20 capsule 0 09/02/2022 09/12/2022 Active Comment on above: Take 1 capsule by mo ut twice daily for 10 days. Take 1 tablet by astrid twice daily for 7 days. brompheniramine maleate 0.4 mg/ml / dextromethorphan hydrobromide 2 mg/ml / pseudoephedrine hydrochloride 6 mg/ml oral solution (10 sources) alpha-Adrenergic Agonist, Uncompetitive L-cchhiy-Z-aspartate Receptor Antagonist, Sigma-1 Agonist Start: 02-08-20 19 take 5-10 mL by mouth every six hours as needed Brompheniramine-Ps eudoeph-DM (BROMFED DM) 2-30-10 mg/5 mL syrup Indications: URI, acute Take 5-10 ml po q6h prn 120 mL 02/07/2019 Active Comment on above: Take 5-10 ml po q6h prn mupirocin 0.02 mg/mg topical ointment (10 sources) RNA Synthetase Inhibitor Antibacterial Start: 10-06-20 18 mupirocin (BACTROBAN) 2 % ointment Indications: Puncture wound of great toe of left foot, initial encounter Apply 1 application to affected area three times daily. Location: left great toe 22 g 10/06/2018 Active Comment on above: Apply 1 application to affected area three times daily. Location: left great toe Completed/Discontinued Medications Medication Drug Class(es) Dates Sig (Normalized) Sig (Original) meloxicam 15 mg oral tablet (9 sources) Nonsteroidal Anti-inflammatory Drug Start: 01-23-2022 take 1 tablet by mouth once daily at mealtime meloxicam (MOBIC) 15 mg tablet Take 1 tablet by mouth once daily. With food. 30 tablet 1 01/23/2022 Active Comment on above: Take 1 tablet by astrid th once daily. With food. pantoprazole 40 mg delayed release oral tablet (2 sources) Proton Pump Inhibitor Start: 03-20-2023 take 1 tablet by mouth once daily pantoprazole DR (PROTONIX) 40 mg tablet Take 40 mg by mouth once daily. 0 03/20/2023 Active Comment on above: Take 40 mg by mouth once daily. Problems Active Problems Problem Classification Problem Date Documented Da te Episodic/Chronic Abdominal pain (10 sources) Epigastric pain; Translations: [Epigastric pain] 07-31-2016 Episodic Immunizations and screening for infectious disease (1 source) Exposure to streptococcal pharyngitis; Translations: [Contact with and (suspected) exposure to other bacterial communicable diseases] Episodic Inflammation; infection of eye (except that caused by tuberculosis or sexually transmitteddisease) (1 source) Acute atopic conjunctivitis of right eye; Translations: [Acute atopic conjunctivitis, right eye] Episodic Other non-traumatic joint disorders (1 source) Pain in right knee; Translations: [Pain in joint, lower leg] Episodic Other upper respiratory disease (1 source) Seasonal allergic rhinitis; Translations: [Other seasonal allergic rhinitis] Chronic Other upper respiratory infections (6 sources) Sore throat symptom; Translations: [Acute pharyngitis, unspecified] Episodic Otitis media and related conditions (1 source) Acute right otitis media; Translations: [Otitis media, unspecified, right ear] 07-28-2023 Episodic Past or Other Problems Problem Classification Problem Date Documented Da te Episodic/Chronic Other connective tissue disease (3 sources) Other bursitis of knee, right knee; Translations: [OTHER BURSITIS OF KNEE R] Onset: 02-20-2017 Episodic Results Test Name Value Interpretation Reference Range Facil ity CNOVon 07-28-2023 CN Office Visit ([facility] ) ANAYELIJIMENA WEBER ([id number]) 1985 M Date Time Provider Department 07/28/23 10:45 AM TAMARA WYNNE [facility] During your visit today, we recorded the following information about you: Temperature Pulse Respiration Blood pressure 96.9 degrees 80/minute 20/minute 122/76 Weight 119 kg Tamara Wynne APRN.CNP 07/28/2023 10:52 AM Signed CC: Patient presents with: Ear Pain: Right ear pain x 4 days HPI: Jimena Norwood is a 38 year old male who presents to the office with complaint of ear symptoms for a few days. Symptoms are worsening Associated symptoms includes ear pain and ear pressure . Denies headache, body aches, fever, nausea, vomiting , and diarrhea. Treatments tried include nothing so far. with no relief of symptoms. Sick contacts: unknown. History of asthma, frequent episodes of bronchitis, chronic bronchitis, bronchiectasis or COPD: No Smoker: No Seasonal/environmenta l allergies: No The ROS is otherwise negative. The patient's pmh, medications, allergies, and past visits are reviewed. PHYSICAL EXAM: BP 122/76 Pulse 80 Temp 36.1 ?C (96.9 ?F) Resp 20 Wt 119 kg (262 lb 6.4 oz) SpO2 100% BMI 38.75 kg/m? General appearance: alert, cooperative, pleasant, in no acute distress Head: Normocephalic Eyes: EOM's intact, conjunctiva pink and moist, no icterus, sclera white, non-injected Ears: Right ear: External ear/canal- Normal, TM - erythematous, bulging. Left ear: External ear/canal- Normal, TM - clear with good landmarks Oropharynx:moist without lesions, No erythema, exudates or tonsillar hypertrophy. PAST MEDICAL HISTORY Diagnosis Date Epigastric pain Indigestion Knee pain -right Known medical problems Pes anserinus tendinitis and bursitis Patellar tendonitis - right Pes planus Sprain of interphalangeal joint of finger - right PAST SURGICAL HISTORY Procedure Laterality Date PAST SURGICAL HISTORY OF 08/2010 Oral surgery ALLERGIES Patient has no known allergies. MEDICATIONS pantoprazole DR (PROTONIX) 40 mg tablet Take 40 mg by mouth once daily. amoxicillin (AMOXIL) 875 mg tablet Take 1 tablet by mouth twice daily for 7 days. meloxicam (MOBIC) 15 mg tablet Take 1 tablet by mouth once daily. With food. (Patient not taking: Reported on 12/23/2022) Brompheniramine-Pseud oeph-DM (BROMFED DM) 2-30-10 mg/5 mL syrup Take 5-10 ml po q6h prn (Patient not taking: Reported on 01/16/2022 ) mupirocin (BACTROBAN) 2 % ointment Apply 1 application to affected area three times daily. Location: left great toe (Patient not taking: Reported on 01/17/2019 ) FAMILY HISTORY Problem Relation Age of Onset other (Diabetes mellitus) Sister other (Diabetes mellitus) Other other (Diabetes mellitus) Other Hyperlipidemia Father Hypertension Father Hyperlipidemia Brother Hypertension Brother Social History Tobacco Use Smoking status: Never Smokeless tobacco: Never Vaping Use Vaping Use: Never used Substance Use Topics Alcohol use: Yes Comment: socially Drug use: No ASSESSMENT/PLAN: 1. Acute otitis media, right - ICD9: 382.9, ICD10: H66.91 - AMOXICILLIN 875 MG TABLET Was educated about proper use of medication supportive therapies. Patient will follow-up if signs and symptoms seem to be getting worse not better. Patient was okay with this care plan. Prescription instructions reviewed with patient as applicable. Potential red flag symptoms discussed with the patient. Reviewed appropriate action plan to take if red flag symptoms occur. Patient agreeable to treatment plan. Tamara Wynne APRN.INTERACTIVE MEDIA MARKETING STRATEGIST Allergies As of Date: 07/28/2023 (No Known Allergies) Date Reviewed: 07/28/2023 Reviewed by: Gissel Zuluaga MA - Fully Assessed Reason for Visit: Ear Pain [817] Cmt: Right ear pain x 4 days Primary Visit Diagnosis:Acute otitis media, right [H66.91] Order(s):amoxicillin (AMOXIL) 875 mg tabletTake 1 tablet by mouth twice daily for 7 days.Disp: 14 tabletRfl: 0 Prescriptions as of 07/28/2023 - amoxicillin (AMOXIL) 875 mg tablet Take 1 tablet by mouth twice daily for 7 days. - pantoprazole DR (PROTONIX) 40 mg tablet Take 40 mg by mouth once daily. - meloxicam (MOBIC) 15 mg tablet Take 1 tablet by mouth once daily. With food. - Brompheniramine-Pseud oeph-DM (BROMFED DM) 2-30-10 mg/5 mL syrup Take 5-10 ml po q6h prn - mupirocin (BACTROBAN) 2 % ointment Apply 1 application to affected area three times daily. Location: left great toe Problem List As Of Date 07/28/2023 Noted Resolved Epigastric pain [R10.13] Prescriptions ordered this encounter Disp Refills Start End AMOXICILLIN 875 MG TABLET 14 t* 0 07/28/2023 08/04/2023 Route: ORAL Sig: Take 1 tablet by mouth twice daily for 7 days. Encounter Status:Closed by TAMARA WYNNE on 07/28/23 [facility] Atilio 03-25-2023 CNOV Office Visit ([facility] ) JIMENA NORWOOD ([id number]) 1985 M Date Time Provider Department 03/25/23 11:15 AM JASMYNE KEMP [facility] During your visit today, we recorded the following information about you: Temperature Pulse Respiration Blood pressure 97.1 degrees 78/minute 16/minute 122/80 Weight 122.1 kg Jasmyne Kemp APRN.INTERACTIVE MEDIA MARKETING STRATEGIST 03/25/2023 11:39 AM Signed Subjective Sore Throat Associated symptoms include headaches. Pertinent negatives include no abdominal pain, congestion, coughing, diarrhea, ear pain or vomiting. Jimena Norwood is a 38 year old male who presents with body aches and sore throat. He has had this for one day. His kids were recently diagnosed with strep- one as recently as yesterday. He has not had a fever. Review of Systems Constitutional: Negative for chills and fever. HENT: Positive for sore throat. Negative for congestion and ear pain. Respiratory: Negative for cough. Cardiovascular: Negative. Gastrointestinal: Negative for abdominal pain, diarrhea, nausea and vomiting. Musculoskeletal: Positive for myalgias. Skin: Negative. Neurological: Positive for headaches. BP 122/80 Pulse 78 Temp 36.2 ?C (97.1 ?F) (Tympanic) Resp 16 Wt 122.1 kg (269 lb 3.2 oz) SpO2 96% BMI 39.75 kg/m? PAST MEDICAL HISTORY Diagnosis Date Epigastric pain Indigestion Knee pain -right Known medical problems Pes anserinus tendinitis and bursitis Patellar tendonitis - right Pes planus Sprain of interphalangeal joint of finger - right PAST SURGICAL HISTORY Procedure Laterality Date PAST SURGICAL HISTORY OF 08/2010 Oral surgery ALLERGIES Patient has no known allergies. MEDICATIONS pantoprazole DR (PROTONIX) 40 mg tablet Take 40 mg by mouth once daily. meloxicam (MOBIC) 15 mg tablet Take 1 tablet by mouth once daily. With food. (Patient not taking: Reported on 12/23/2022) Brompheniramine-Pseud oeph-DM (BROMFED DM) 2-30-10 mg/5 mL syrup Take 5-10 ml po q6h prn (Patient not taking: Reported on 01/16/2022 ) mupirocin (BACTROBAN) 2 % ointment Apply 1 application to affected area three times daily. Location: left great toe (Patient not taking: Reported on 01/17/2019 ) FAMILY HISTORY Problem Relation Age of Onset other (Diabetes mellitus) Sister other (Diabetes mellitus) Other other (Diabetes mellitus) Other Hyperlipidemia Father Hypertension Father Hyperlipidemia Brother Hypertension Brother Social History Tobacco Use Smoking status: Never Smokeless tobacco: Never Vaping Use Vaping Use: Never used Substance Use Topics Alcohol use: Yes Comment: socially Drug use: No Objective Physical Exam Vitals and nursing note reviewed. Constitutional: Appearance: Normal appearance. HENT: Right Ear: Tympanic membrane, ear canal and external ear normal. Left Ear: Tympanic membrane, ear canal and external ear normal. Nose: Nose normal. Mouth/Throat: Mouth: Mucous membranes are moist. Pharynx: Uvula midline. Posterior oropharyngeal erythema present. No oropharyngeal exudate. Cardiovascular: Rate and Rhythm: Normal rate and regular rhythm. Heart sounds: Normal heart sounds. Pulmonary: Effort: Pulmonary effort is normal. No respiratory distress. Breath sounds: Normal breath sounds. No wheezing or rales. Musculoskeletal: Cervical back: Neck supple. Lymphadenopathy: Cervical: No cervical adenopathy. Skin: General: Skin is warm and dry. Findings: No erythema or rash. Neurological: Mental Status: He is alert. ASSESSMENT/PLAN: 1. Sore throat - ICD9: 462, ICD10: J02.9 - suspect viral - Alere Strep Test negative, no culture pending - Discussed supportive care treatment with fluids, rest and analgesia. - STREP A MOLECULAR (POC) - Follow-up with your PCP in 3-5 days if symptoms have not improved or sooner if symptoms worsen - Discussed red flags and need for immediate medical evaluation if any occur. - Discussed supportive care treatment with fluids, rest and analgesia. - Discussed expected course of illness MARK Fritz APRN.CNP 03/25/2023 11:38 AM Signed ASSESSMENT/PLAN: 1. Sore throat - ICD9: 462, ICD10: J02.9 - suspect viral - Alere Strep Test negative, no culture pending - Discussed supportive care treatment with fluids, rest and analgesia. - STREP A MOLECULAR (POC) - Follow-up with your PCP in 3-5 days if symptoms have not improved or sooner if symptoms worsen - Discussed red flags and need for immediate medical evaluation if any occur. - Discussed supportive care treatment with fluids, rest and analgesia. - Discussed expected course of illness Jasmyne Kemp APRN.INTERACTIVE MEDIA MARKETING STRATEGIST SORE THROAT INSTRUCTIONS SORE THROAT OVERVIEW - Sore throat is a common problem during childhood, and is usually the result of a bacterial or viral infection. Although sore throat usually r (more content not included)... Normal [facility] STREP A MOLECULAR (POC)on Procedural Control Valid [facility] Strep A (POCT) Negative Negative [facility] CNOVon 12-23-2022 CNOV Office Visit ([facility] ) JIMENA NORWOOD ([id number]) 1985 M Date Time Provider Department 12/23/22 10:00 AM JASMYNE KEMP [facility] During your visit today, we recorded the following information about you: Temperature Pulse Respiration Blood pressure 97.7 degrees 75/minute 23/minute 122/76 Weight 120.5 kg Angelique Guzman 12/23/2022 11:22 AM Signed This note was created using [employer]. Subjective Jimena Norwood is a 37 year old male CC of right eye drainage that started a week and a half ago and recently noticed waking up with R eye crusts (yellow) that started a couple of days ago. Reports that friends daughter had pink eye. 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 Wears eye protection at work. No history of environmental allergies. Review of Systems Constitutional: Negative for chills, diaphoresis, fatigue and fever. HENT: Positive for sinus pressure. Negative for congestion, ear pain, rhinorrhea, sinus pain and sore throat. Eyes: Positive for discharge (clear) and itching. Negative for photophobia, pain, redness and visual disturbance. Respiratory: Positive for cough (productive, one month). Negative for shortness of breath and wheezing. Cardiovascular: Negative for chest pain. Gastrointestinal: Negative for abdominal pain, diarrhea, nausea and vomiting. Allergic/Immunologic: Positive for food allergies (lactose intolerant). Negative for environmental allergies. Neurological: Negative for headaches. PAST MEDICAL HISTORY Diagnosis Date Epigastric pain Indigestion Knee pain -right Known medical problems Pes anserinus tendinitis and bursitis Patellar tendonitis - right Pes planus Sprain of interphalangeal joint of finger - right PAST SURGICAL HISTORY Procedure Laterality Date PAST SURGICAL HISTORY OF 08/2010 Oral surgery ALLERGIES Patient has no known allergies. MEDICATIONS meloxicam (MOBIC) 15 mg tablet Take 1 tablet by mouth once daily. With food. (Patient not taking: Reported on 12/23/2022) Brompheniramine-Pseud oeph-DM (BROMFED DM) 2-30-10 mg/5 mL syrup Take 5-10 ml po q6h prn (Patient not taking: Reported on 01/16/2022 ) mupirocin (BACTROBAN) 2 % ointment Apply 1 application to affected area three times daily. Location: left great toe (Patient not taking: Reported on 01/17/2019 ) FAMILY HISTORY Problem Relation Age of Onset other (Diabetes mellitus) Sister other (Diabetes mellitus) Other other (Diabetes mellitus) Other Hyperlipidemia Father Hypertension Father Hyperlipidemia Brother Hypertension Brother Social History Tobacco Use Smoking status: Never Smokeless tobacco: Never Vaping Use Vaping Use: Never used Substance Use Topics Alcohol use: Yes Comment: socially Drug use: No Objective BP 122/76 Pulse 75 Temp 36.5 ?C (97.7 ?F) Resp 23 Wt 120.5 kg (265 lb 9.6 oz) SpO2 98% BMI 39.22 kg/m? Physical Exam Constitutional: Appearance: Normal appearance. He is not ill-appearing. HENT: Head: Normocephalic and atraumatic. Right Ear: Tympanic membrane, ear canal and external ear normal. Left Ear: Tympanic membrane, ear canal and external ear normal. Nose: Mucosal edema present. No congestion or rhinorrhea. Mouth/Throat: Mouth: Mucous membranes are moist. Pharynx: Oropharynx is clear. Posterior oropharyngeal erythema (cobblestone) present. Eyes: General: Lids are normal. Lids are everted, no foreign bodies appreciated. No allergic shiner or scleral icterus. Right eye: No discharge or hordeolum. Left eye: No discharge or hordeolum. Conjunctiva/sclera: Right eye: Right conjunctiva is injected (mild). Left eye: Left conjunctiva is not injected. Pupils: Pupils are equal, round, and reactive to light. Cardiovascular: Rate and Rhythm: Normal rate and regular rhythm. Heart sounds: Normal heart sounds. Pulmonary: Effort: Pulmonary effort is normal. Breath sounds: Normal breath sounds. Lymphadenopathy: Cervical: No cervical adenopathy. Neurological: Mental Status: He is alert. Assessment and Plan 1. Acute atopic conjunctivitis of right eye - ICD9: 372.05, ICD10: H10.11 (primary diagnosis) Allergic - Instructed to call if high fever, development of periorbital redness or swelling, eye pain, visual changes, concerns or if symptoms persist. - Patient to roller picker over the counter Oral Antihistamine (Zyrtec or Claritin) and take one pill, once a day. Follow package instructions. Also to roller picker over the counter Antihistamine Eye drops (Pataday or Zaditor) one drop in each eye. Follow package instructions -Patient to return if new vision changes, sensation of something being in the eye, eye redness worsens, or eye pain develops. 2. Post-nasal drip - ICD9: 784.91, ICD10: R09.82 - Patient to roller picker OTC Flonase (Fluticasone) and use once a day, two sprays in each nostril and rinse (more content not included)... [facility] Nurse Visit ([facility]) JIMENA NORWOOD ([id number]) 1985 M Date Time Provider Department 09/02/22 3:00 PM NURSE [facility]P [facility] During your visit today, we recorded the following information about you: Gerardo Zeng MA 09/02/2022 2:51 PM Signed Patient strep test Positive, VV provider to treat. Gerardo Zeng MA Referring Provider: SELF [[id number]] Allergies As of Date: 09/02/2022 (No Known Allergies) Date Reviewed: 09/02/2022 Reviewed by: Barb Talavera APRN.INTERACTIVE MEDIA MARKETING STRATEGIST - Fully Assessed Primary Visit Diagnosis:Sore throat [J02.9] Prescriptions as of 09/02/2022 - meloxicam (MOBIC) 15 mg tablet Take 1 tablet by mouth once daily. With food. - Brompheniramine-Pseud oeph-DM (BROMFED DM) 2-30-10 mg/5 mL syrup Take 5-10 ml po q6h prn - mupirocin (BACTROBAN) 2 % ointment Apply 1 application to affected area three times daily. Location: left great toe Problem List As Of Date 09/02/2022 Noted Resolved Epigastric pain [R10.13] Encounter Status:Closed by GERARDO ZENG on 09/02/22 Normal [facility] MRI KNEE WO IVCON RTon 02-12 [facility] XR Knee - right 4 Viewson IMPRESSION: Normal Sole Skiver: PSCB Transcribe Date/Time: Jan 16 2022 7:42P Dictated by : SHERRELL JOHNSTON MD This examination was interpreted and the report reviewed and electronically signed by: SHERRELL JOHNSTON MD on Jan 16 2022 7:42PM [facility] DIVISION OF RADIOLOGY * * *Final Report* * * DATE OF EXAM: Jan 16 2022 7:38PM WOX [id number] - XR KNEE 4V AP/PA BOTH+LAT/JOLIE RT / PROCEDURE REASON: multiple diagnoses * * * * Physician Interpretation * * * * PROCEDURE: Right knee INDICATION: Chronic pain of right knee TECHNIQUE: XR KNEE 4V AP/PA BOTH+LAT/JOLIE RT COMPARISON: 02/23/2013 FINDINGS: No fracture or dislocation. Joint spaces are maintained. No joint effusion. No interval change. DIVISION OF RADIOLOGY Provider, [facility] - 01/16/2022 * * *Final Report* * * DATE OF EXAM: Jan 16 2022 7:38PM WOX [id number] - XR KNEE 4V AP/PA BOTH+LAT/JOLIE RT / PROCEDURE REASON: multiple diagnoses * * * * Physician Interpretation * * * * PROCEDURE: Right knee INDICATION: Chronic pain of right knee TECHNIQUE: XR KNEE 4V AP/PA BOTH+LAT/JOLIE RT COMPARISON: 02/23/2013 FINDINGS: No fracture or dislocation. Joint spaces are maintained. No joint effusion. No interval change. IMPRESSION IMPRESSION: Normal Sole Skiver: PSCElvin Transcribe Date/Time: Jan 16 2022 7:42P Dictated by : SHERRELL JOHNSTON MD This examination was interpreted and the report reviewed and electronically signed by: SHERRELL JOHNSTON MD on Jan 16 2022 7:42PM EST [facility] Radiology Study observation (narrative) [facility] XR Knee - right 4 ViewsOrder ed By: Cczofia Provider on 01-16-2022 [facility] Vital Signs Date Time Vital Sign Value Performing Clinician Angely walton 07-28-2023 10:45-0400 Body temperature 96.91 [degF] Tamara Wynne APRN.INTERACTIVE MEDIA MARKETING STRATEGIST Work Phone: [facility] 07-28-2023 10:45-0400 Body weight 119.02 kg Tamara Wynne APRN.INTERACTIVE MEDIA MARKETING STRATEGIST Work Phone: [facility] 07-28-2023 10:45-0400 Diastolic blood pressure 76 mm[Hg] Tamara Wynne APRN.INTERACTIVE MEDIA MARKETING STRATEGIST Work Phone: [facility] 07-28-2023 10:45-0400 Heart rate 80 /min Tamara Wynne APRN.INTERACTIVE MEDIA MARKETING STRATEGIST Work Phone: [facility] 07-28-2023 10:45-0400 Respiratory rate 20 /min Tamara Wynne APRN.INTERACTIVE MEDIA MARKETING STRATEGIST Work Phone: [facility] 07-28-2023 10:45-0400 SaO2% (BldA) [Mass fraction] 100 % Tamara Wynne APRN.INTERACTIVE MEDIA MARKETING STRATEGIST Work Phone: [facility] 07-28-2023 10:45-0400 Systolic blood pressure 122 mm[Hg] Tamara Wynne APRN.INTERACTIVE MEDIA MARKETING STRATEGIST Work Phone: [facility] 03-25-2023 11:18-0400 Body temperature 97.11 [degF] Jasmyne Praisler-Wood CONTACT WORKER LITHOGRAPHY.INTERACTIVE MEDIA MARKETING STRATEGIST Work Phone: [facility] 03-25-2023 11:18-0400 Body weight 122.11 kg Jasmyne Praisler-Wood CONTACT WORKER LITHOGRAPHY.INTERACTIVE MEDIA MARKETING STRATEGIST Work Phone: [facility] 03-25-2023 11:18-0400 Diastolic blood pressure 80 mm[Hg] Jasmyne Praisler-Wood CONTACT WORKER LITHOGRAPHY.INTERACTIVE MEDIA MARKETING STRATEGIST Work Phone: [facility] 03-25-2023 11:18-0400 Heart rate 78 /min Jasmyne Praisler-Wood CONTACT WORKER LITHOGRAPHY.INTERACTIVE MEDIA MARKETING STRATEGIST Work Phone: [facility] 03-25-2023 11:18-0400 Respiratory rate 16 /min Jasmyne Praisler-Wood CONTACT WORKER LITHOGRAPHY.INTERACTIVE MEDIA MARKETING STRATEGIST Work Phone: [facility] 03-25-2023 11:18-0400 SaO2% (BldA) [Mass fraction] 96 % Jasmyne Praisler-Wood CONTACT WORKER LITHOGRAPHY.INTERACTIVE MEDIA MARKETING STRATEGIST Work Phone: [facility] 03-25-2023 11:18-0400 Systolic blood pressure 122 mm[Hg] Jasmyne [employer] CONTACT WORKER LITHOGRAPHY.INTERACTIVE MEDIA MARKETING STRATEGIST Work Phone: [facility] 12-23-2022 10:17-0500 Body temperature 97.7 [degF] Jasmyne Praisler-Wood CONTACT WORKER LITHOGRAPHY.INTERACTIVE MEDIA MARKETING STRATEGIST Work Phone: [facility] 12-23-2022 10:17-0500 Body weight 120.47 kg Jasmyne Praisler-Wood CONTACT WORKER LITHOGRAPHY.INTERACTIVE MEDIA MARKETING STRATEGIST Work Phone: [facility] 12-23-2022 10:17-0500 Diastolic blood pressure 76 mm[Hg] Jasmyne Praisler-Wood CONTACT WORKER LITHOGRAPHY.INTERACTIVE MEDIA MARKETING STRATEGIST Work Phone: [facility] 12-23-2022 10:17-0500 Heart rate 75 /min Jasmyne Praisler-Wood CONTACT WORKER LITHOGRAPHY.INTERACTIVE MEDIA MARKETING STRATEGIST Work Phone: [facility] 12-23-2022 10:17-0500 Respiratory rate 23 /min Jasmyne Praisler-Wood CONTACT WORKER LITHOGRAPHY.INTERACTIVE MEDIA MARKETING STRATEGIST Work Phone: [facility] 12-23-2022 10:17-0500 SaO2% (BldA) [Mass fraction] 98 % Jasmyne Kemp APRN.INTERACTIVE MEDIA MARKETING STRATEGIST Work Phone: [facility] 12-23-2022 10:17-0500 Systolic blood pressure 122 mm[Hg] Jasmyne Kemp APRN.INTERACTIVE MEDIA MARKETING STRATEGIST Work Phone: [facility] Encounters Encounter Date Encounter Type Care Provider Facility Start: 07-28-2023 End: 07-28-2023 [facility] Facility:[facility] Start: 07-28-2023 End: 07-28-2023 Patient encounter procedure Tamara Wynne APRN.INTERACTIVE MEDIA MARKETING STRATEGIST Work Phone: [facility] Comment on above: Acute otitis media, right (Primary Dx) Start: 03-25-2023 End: 03-25-2023 [facility] Facility:[facility] Start: 03-25-2023 End: 03-25-2023 Patient encounter procedure Jasmyne Kemp APRN.INTERACTIVE MEDIA MARKETING STRATEGIST Work Phone: [facility] Comment on above: Sore throat (Primary Dx) Start: 12-23-2022 End: 12-23-2022 [facility] Facility:[facility] Start: 12-23-2022 End: 12-23-2022 Patient encounter procedure Jasmyne Kemp APRN.INTERACTIVE MEDIA MARKETING STRATEGIST Work Phone: [facility] Comment on above: Acute atopic conjunc tivitis of right eye (Primary Dx); Post-nasal drip; Seasonal allergic rhinitis, unspecified trigger Start: 09-02-2022 End: 09-02-2022 ambulatory [facility] Facility:[facility] Start: 09-02-2022 End: 09-02-2022 Nursing evaluation of patient and report [facility] Work Phone: [facility] Comment on above: Sore throat (Primary Dx) Start: 09-02-2022 End: 09-02-2022 ambulatory Barb Talavera MARK Work Phone: Telemedicine Comment on above: Sore throat (Primary Dx); Acute pharyngitis, unspecified etiology; Strep throat exposure strep Start: 09-02-2022 E-mail encounter fro baudilio caregiver Barb Talavera MARK Work Phone: [facility] Start: 09-02-2022 End: 09-02-2022 Telemedicine consultation with patient Barb Talavera DAWOOD.SHANNAN Work Phone: [facility] Start: 02-14-2022 ambulatory Jack Ely O Work Phone: [facility] Comment on above: Question regarding M RI KNEE WO IVCON RT Start: 02-12-2022 End: 02-12-2022 Subsequent hospital visit by physician Mri Radio [facility] (I-Stat/1.5t) Work Phone: Radiology Comment on above: Chronic pain of righ t knee [M25.561, G89.29] Start: 02-08-2022 ambulatory Nopcp (Historical) [facility] Start: 01-16-2022 End: 01-16-2022 Subsequent hospital visit by physician Xr [facility] Work Phone: Radiology Comment on above: Chronic pain of righ t knee [M25.561, G89.29] Start: 02-20-2017 End: 02-21-2017 Ambulatory BERE CONRAD Facility:[facility] Procedures Date Procedure Procedure Detail Performing Clinician Start: 03-25-2023 STREP A MOLECULAR (POC) Jasmyne Kemp APRN.CNP Work Phone: Start: 02-12-2022 Mri any jt lower ext rem w/o contrast matrl Jack Keller DO Work Phone: Start: 01-16-2022 Radiologic exam knee complete 4/more views Cody Madden APRN.CNP Work Phone: Plan of Treatment Date Care Activity Detail Author Start: 10-06-2028 Urine microalbumin profile [facility] Start: 07-11-2024 Covid-19 Vaccine ( season) Covid-19 Vaccine ( season) [facility] Start: 07-11-2024 Influenza vaccination Influenza Vacc ine (#1) [facility] Start: 07-11-2023 Influenza vaccination [facility] Start: 11-10-2022 DEPRESSION ASSESSMENT DEPRESSION ASS [facility] Start: 07-11-2022 Influenza vaccination [facility] Start: 2022 Lipid 1996 panel - Serum or Plasma Lipid Screening [facility] Start: 2022 Lipid panel Lipid Screening [facility] Start: 2022 LIPID SCREEN LIPID SCREEN [facility] Start: 11-10-2021 DEPRESSION ASSESSMENT DEPRESSION ASS [facility] Start: 2006 Hepatitis B Vaccine (1 of 3 - 19+ 3-dose series) Hepatitis B Vaccine (1 of 3 - 19+ 3-dose series) [facility] Start: 2005 Anxiety Screening Anxiety Screening [facility] Start: 2005 Depression Screening Depression Scre ening [facility] Start: 2005 HEPATITIS C SCREENING HEPATITIS C [facility] Start: 2005 Hepatitis C screening Hep[facility] Start: 2005 HIV SCREENING HIV SCREENING [facility] Start: 2005 HIV screening HIV Screening [facility] Start: 1999 Adult depression screening assessment DEPRESSION SCREENING [facility] Start: 1992 COVID-19 VACCINE (1) COVID-19 VACCIN E (1) [facility] Start: 1987 COVID-19 VACCINE (#1) COVID-19 VACCI NE (#1) [facility] Start: 1987 HEPATITIS B (1 of 3 - 3-dose series) HEPATITIS B (1 of 3 - 3-dose series) [facility] Start: 1987 Hepatitis B Vaccine (1 of 3 - 3-dose series) Hepatitis B Vaccine (1 of 3 - 3-dose series) [facility] STREP A MOLECULAR (POC) STREP A MOLECULAR (POC) Microbiology Routine Sore throat Ordered: 09/02/2022 [facility] Work Phone: Comment on above: Ordered: [facility]02/[facility] Immunizations Immunization Date Immunization Notes Care Provider Haider woods 10-06-2018 tetanus toxoid, redu cyndi diphtheria toxoid, and acellular pertussis vaccine, adsorbed Nopcp (Historical) [facility] Work Phone: Payers Date Payer Category Payer Unknown [id number] 2018 Unknown [employer] CARD PPO OOS [id number] 2018-Present [phone] [address] [place] [address] PPO [id number] 2018 Unknown [employer] CARD PPO OOS [id number] 2018-Present [phone] [address] [place] [address] PPO [id number] Social History Date Type Detail Facility Start: 05-24-2014 End: 07-31-2016 Tobacco smoking status NHIS Never smoked tobacco [facility] Work Phone: Start: 05-24-2014 End: 07-31-2016 Tobacco use and exposure Smokeless tobacco non-user [facility] Work Phone: Start: 01-16-2022 End: 01-23-2022 Alcohol intake Current drinker of alcohol (finding) [facility] Start: 07-31-2016 History SDOH Alcohol Comment socially [facility] Start: 1987 Sex Assigned At Not on file [facility] Start: 12-17-2021 End: 09-02-2022 Exposure to SARS-CoV-2 (event) Not sure [facility] Start: 10-18-2020 End: 07-28-2023 History of Social function [facility] Start: 10-18-2020 End: 07-28-2023 Tobacco use panel [facility] National Score (1-100), lower number is lower risk Not on file [facility] Start: 01-17-2022 Gender identity Identifies as male gender (finding) [facility] Clinical Notes 02-08-2022 to 07-28-2023 Tamara Wynne APRN.INTERACTIVE MEDIA MARKETING STRATEGIST - 07/28/2023 10:48 AM EDTPatient Titi Kemp APRN.CNP - 03/25/2023 11:22 AM EDTPatient InstructionsAngelique Guzman - 12/23/2022 10:26 AM EST Note Date & Type Note Facility 07-28-2023 Note HNO ID: [id number] Author: Tamara Wynne APRN.INTERACTIVE MEDIA MARKETING STRATEGIST Service: ? Author Type: Nurse Practitioner Type: Progress Notes Filed: 07/28/2023 10:52 AM Note Text: CC: Patient presents with: Ear Pain: Right ear pain x 4 days HPI: Jimena Norwood is a 38 year old male who presents to the office with complaint of ear symptoms for a few days. Symptoms are worsening Associated symptoms includes ear pain and ear pressure . Denies headache, body aches, fever, nausea, vomiting , and diarrhea. Treatments tried include nothing so far. with no relief of symptoms. Sick contacts: unknown. History of asthma, frequent episodes of bronchitis, chronic bronchitis, bronchiectasis or COPD: No Smoker: No Seasonal/environmental allergies: No The ROS is otherwise negative. The patient's pmh, medications, allergies, and past visits are reviewed. PHYSICAL EXAM: BP 122/76 Pulse 80 Temp 36.1 ?C (96.9 ?F) Resp 20 Wt 119 kg (262 lb 6.4 oz) SpO2 100% BMI 38.75 kg/m? General appearance: alert, cooperative, pleasant, in no acute distress Head: Normocephalic Eyes: EOM's intact, conjunctiva pink and moist, no icterus, sclera white, non-injected Ears: Right ear: External ear/canal- Normal, TM - erythematous, bulging. Left ear: External ear/canal- Normal, TM - clear with good landmarks Oropharynx:moist without lesions, No erythema, exudates or tonsillar hypertrophy. PAST MEDICAL HISTORY Diagnosis Date Epigastric pain Indigestion Knee pain -right Known medical problems Pes anserinus tendinitis and bursitis Patellar tendonitis - right Pes planus Sprain of interphalangeal joint of finger - right PAST SURGICAL HISTORY Procedure Laterality Date PAST SURGICAL HISTORY OF 08/2010 Oral surgery ALLERGIES Patient has no known allergies. MEDICATIONS pantoprazole DR (PROTONIX) 40 mg tablet Take 40 mg by mouth once daily. amoxicillin (AMOXIL) 875 mg tablet Take 1 tablet by mouth twice daily for 7 days. meloxicam (MOBIC) 15 mg tablet Take 1 tablet by mouth once daily. With food. (Patient not taking: Reported on 12/23/2022) Ecmmdijohdqzeee-Atgdnmqlg-YP (BROMFED DM) 2-30-10 mg/5 mL syrup Take 5-10 ml po q6h prn (Patient not taking: Reported on 01/16/2022 ) mupirocin (BACTROBAN) 2 % ointment Apply 1 application to affected area three times daily. Location: left great toe (Patient not taking: Reported on 01/17/2019 ) FAMILY HISTORY Problem Relation Age of Onset other (Diabetes mellitus) Sister other (Diabetes mellitus) Other other (Diabetes mellitus) Other Hyperlipidemia Father Hypertension Father Hyperlipidemia Brother Hypertension Brother Social History Tobacco Use Smoking status: Never Smokeless tobacco: Never Vaping Use Vaping Use: Never used Substance Use Topics Alcohol use: Yes Comment: socially Drug use: No ASSESSMENT/PLAN: 1. Acute otitis media, right - ICD9: 382.9, ICD10: H66.91 - AMOXICILLIN 875 MG TABLET Was educated about proper use of medication supportive therapies. Patient will follow-up if signs and symptoms seem to be getting worse not better. Patient was okay with this care plan. Prescription instructions reviewed with patient as applicable. Potential red flag symptoms discussed with the patient. Reviewed appropriate action plan to take if red flag symptoms occur. Patient agreeable to treatment plan. Tamara Wynne APRN.[facility] 07-28-2023 History of Presen t illness Narrative CC: Patient presents with: Ear Pain: Right ear pain x 4 days HPI: Jimena Norwood is a 38 year old male who presents to the office with complaint of ear symptoms for a few days. Symptoms are worsening Associated symptoms includes ear pain and ear pressure . Denies headache, body aches, fever, nausea, vomiting , and diarrhea. Treatments tried include nothing so far. with no relief of symptoms. Sick contacts: unknown. History of asthma, frequent episodes of bronchitis, chronic bronchitis, bronchiectasis or COPD: No Smoker: No Seasonal/environmental allergies: No The ROS is otherwise negative. The patient's pmh, medications, allergies, and past visits are reviewed. PHYSICAL EXAM: BP 122/76 Pulse 80 Temp 36.1 C (96.9 F) Resp 20 Wt 119 kg (262 lb 6.4 oz) SpO2 100% BMI 38.75 kg/m General appearance: alert, cooperative, pleasant, in no acute distress Head: Normocephalic Eyes: EOM's intact, conjunctiva pink and moist, no icterus, sclera white, non-injected Ears: Right ear: External ear/canal- Normal, TM - erythematous, bulging. Left ear: External ear/canal- Normal, TM - clear with good landmarks Oropharynx:moist without lesions, No erythema, exudates or tonsillar hypertrophy. PAST MEDICAL HISTORY Diagnosis Date Epigastric pain Indigestion Knee pain -right Known medical problems Pes anserinus tendinitis and bursitis Patellar tendonitis - right Pes planus Sprain of interphalangeal joint of finger - right PAST SURGICAL HISTORY Procedure Laterality Date PAST SURGICAL HISTORY OF 08/2010 Oral surgery ALLERGIES Patient has no known allergies. MEDICATIONS pantoprazole DR (PROTONIX) 40 mg tablet Take 40 mg by mouth once daily. amoxicillin (AMOXIL) 875 mg tablet Take 1 tablet by mouth twice daily for 7 days. meloxicam (MOBIC) 15 mg tablet Take 1 tablet by mouth once daily. With food. (Patient not taking: Reported on 12/23/2022) Dnnipztqooyqsut-Mdmjmdmru-IQ (BROMFED DM) 2-30-10 mg/5 mL syrup Take 5-10 ml po q6h prn (Patient not taking: Reported on 01/16/2022 ) mupirocin (BACTROBAN) 2 % ointment Apply 1 application to affected area three times daily. Location: left great toe (Patient not taking: Reported on 01/17/2019 ) FAMILY HISTORY Problem Relation Age of Onset other (Diabetes mellitus) Sister other (Diabetes mellitus) Other other (Diabetes mellitus) Other Hyperlipidemia Father Hypertension Father Hyperlipidemia Brother Hypertension Brother Social History Tobacco Use Smoking status: Never Smokeless tobacco: Never Vaping Use Vaping Use: Never used Substance Use Topics Alcohol use: Yes Comment: socially Drug use: No ASSESSMENT/PLAN: 1. Acute otitis media, right - ICD9: 382.9, ICD10: H66.91 - AMOXICILLIN 875 MG TABLET Was educated about proper use of medication supportive therapies. Patient will follow-up if signs and symptoms seem to be getting worse not better. Patient was okay with this care plan. Prescription instructions reviewed with patient as applicable. Potential red flag symptoms discussed with the patient. Reviewed appropriate action plan to take if red flag symptoms occur. Patient agreeable to treatment plan. Tamara Wynne APRN.SHANNAN documented in this encounter [facility] 03-25-2023 Note HNO ID: [id number] Author: Jasmyne Kemp APRN.SHANNAN Service: ? Author Type: Nurse Practitioner Type: Progress Notes Filed: 03/25/2023 11:39 AM Note Text: Subjective Sore Throat Associated symptoms include headaches. Pertinent negatives include no abdominal pain, congestion, coughing, diarrhea, ear pain or vomiting. Jimena Norwood is a 38 year old male who presents with body aches and sore throat. He has had this for one day. His kids were recently diagnosed with strep- one as recently as yesterday. He has not had a fever. Review of Systems Constitutional: Negative for chills and fever. HENT: Positive for sore throat. Negative for congestion and ear pain. Respiratory: Negative for cough. Cardiovascular: Negative. Gastrointestinal: Negative for abdominal pain, diarrhea, nausea and vomiting. Musculoskeletal: Positive for myalgias. Skin: Negative. Neurological: Positive for headaches. BP 122/80 Pulse 78 Temp 36.2 ?C (97.1 ?F) (Tympanic) Resp 16 Wt 122.1 kg (269 lb 3.2 oz) SpO2 96% BMI 39.75 kg/m? PAST MEDICAL HISTORY Diagnosis Date Epigastric pain Indigestion Knee pain -right Known medical problems Pes anserinus tendinitis and bursitis Patellar tendonitis - right Pes planus Sprain of interphalangeal joint of finger - right PAST SURGICAL HISTORY Procedure Laterality Date PAST SURGICAL HISTORY OF 08/2010 Oral surgery ALLERGIES Patient has no known allergies. MEDICATIONS pantoprazole DR (PROTONIX) 40 mg tablet Take 40 mg by mouth once daily. meloxicam (MOBIC) 15 mg tablet Take 1 tablet by mouth once daily. With food. (Patient not taking: Reported on 12/23/2022) Mxcajouhaeisnor-Wlmnzpava-JH (BROMFED DM) 2-30-10 mg/5 mL syrup Take 5-10 ml po q6h prn (Patient not taking: Reported on 01/16/2022 ) mupirocin (BACTROBAN) 2 % ointment Apply 1 application to affected area three times daily. Location: left great toe (Patient not taking: Reported on 01/17/2019 ) FAMILY HISTORY Problem Relation Age of Onset other (Diabetes mellitus) Sister other (Diabetes mellitus) Other other (Diabetes mellitus) Other Hyperlipidemia Father Hypertension Father Hyperlipidemia Brother Hypertension Brother Social History Tobacco Use Smoking status: Never Smokeless tobacco: Never Vaping Use Vaping Use: Never used Substance Use Topics Alcohol use: Yes Comment: socially Drug use: No Objective Physical Exam Vitals and nursing note reviewed. Constitutional: Appearance: Normal appearance. HENT: Right Ear: Tympanic membrane, ear canal and external ear normal. Left Ear: Tympanic membrane, ear canal and external ear normal. Nose: Nose normal. Mouth/Throat: Mouth: Mucous membranes are moist. Pharynx: Uvula midline. Posterior oropharyngeal erythema present. No oropharyngeal exudate. Cardiovascular: Rate and Rhythm: Normal rate and regular rhythm. Heart sounds: Normal heart sounds. Pulmonary: Effort: Pulmonary effort is normal. No respiratory distress. Breath sounds: Normal breath sounds. No wheezing or rales. Musculoskeletal: Cervical back: Neck supple. Lymphadenopathy: Cervical: No cervical adenopathy. Skin: General: Skin is warm and dry. Findings: No erythema or rash. Neurological: Mental Status: He is alert. ASSESSMENT/PLAN: 1. Sore throat - ICD9: 462, ICD10: J02.9 - suspect viral - Alere Strep Test negative, no culture pending - Discussed supportive care treatment with fluids, rest and analgesia. - STREP A MOLECULAR (POC) - Follow-up with your PCP in 3-5 days if symptoms have not improved or sooner if symptoms worsen - Discussed red flags and need for immediate medical evaluation if any occur. - Discussed supportive care treatment with fluids, rest and analgesia. - Discussed expected course of illness Jasmyne Kemp APRN.CNP [facility] 03-25-2023 Instructions Jasmyne Kemp APRN.CNP - 03/25/2023 11:38 AM EDT ASSESSMENT/PLAN: 1. Sore throat - ICD9: 462, ICD10: J02.9 - suspect viral - Alere Strep Test negative, no culture pending - Discussed supportive care treatment with fluids, rest and analgesia. - STREP A MOLECULAR (POC) - Follow-up with your PCP in 3-5 days if symptoms have not improved or sooner if symptoms worsen - Discussed red flags and need for immediate medical evaluation if any occur. - Discussed supportive care treatment with fluids, rest and analgesia. - Discussed expected course of illness Jasmyne Kemp APRN.INTERACTIVE MEDIA MARKETING STRATEGIST SORE THROAT INSTRUCTIONS SORE THROAT OVERVIEW - Sore throat is a common problem during childhood, and is usually the result of a bacterial or viral infection. Although sore throat usually resolves without complications, it sometimes requires treatment with an antibiotic. There are some less common causes of sore throat that are serious or even life-threatening. This topic will discuss the most common causes and treatments of sore throat in children, as well as the warning signs of more serious conditions. SORE THROAT CAUSES - The most likely cause of a child's sore throat depends upon the child's age, the season, and the geographic area. While viruses are the most common cause of sore throat, bacteria are another common cause. Bacteria and viruses are spread from one person to another through hand contact. Hands get contaminated when the sick individual touches their nose or mouth and then touches another person directly (emjb-tn-gyod contact) or indirectly (ovul-it-lhyxsa, such as doorknob, telephone, toys). It is difficult to determine the cause of sore throat based upon symptoms alone; an examination and laboratory test are recommended in most cases Viruses - There are many viruses that can cause pain and swelling of the throat. The most common include viruses that cause sore throat as part of an upper respiratory infection, such as the common cold. Other viruses that cause sore throat include influenza, adenovirus, and Lori-Dyer virus (the cause of mononucleosis). Symptoms - Symptoms that may occur with a viral infection can include a runny nose and congestion, irritation or redness of the eyes, cough, hoarseness, soreness in the roof of the mouth, a skin rash, or diarrhea. In addition, children with viral infections may have a fever and may feel miserable. A high fever does not necessarily mean that the child has a bacterial infection. Group A streptococcus - Group A streptococcus (GAS) is the name of the bacterium that causes strep throat. Although other bacteria can cause a sore throat, GAS is the most common bacterial cause; up to 30 percent of children with a sore throat will have GAS. Strep throat usually occurs during the winter and early spring, and is most common in school-age children and their younger siblings. Symptoms - Symptoms of strep throat in children older than 3 years often develop suddenly and include fever (temperature ?100.4 F or 38 C), headache, abdominal pain, nausea, and vomiting. Other symptoms can include swollen glands in the neck, white patches of pus in the back or sides of the throat, small red spots on the roof of the mouth, and swelling of the uvula. A cough and cold are not commonly seen in children with strep throat. Strep throat is uncommon in children younger than age 2 to 3 years. However, GAS infection can occur in younger children, and may cause a runny nose and congestion that is prolonged, low-grade fever (?101 F or 38.3 C), and tender glands in the neck. Infants younger than 1 year may be fussy and have a decreased appetite and low-grade fever. SORE THROAT TREATMENT - The treatment of sore throat depends upon the cause; strep throat is treated with an antibiotic while viral pharyngitis is treated with rest, pain relievers, and other measures to reduce symptoms. Strep throat - Strep throat is usually treated with an antibiotic, such as penicillin, or an antibiotic similar to penicillin (eg, amoxicillin). Children who are allergic to penicillin will be given an alternate antibiotic. The antibiotic is usually given in pill or liquid form two or three times per day. A one-time injection is also available, and may be recommended if a child is unwilling to take an oral medication. After completing 24 hours of antibiotics, the child is no longer contagious and may return to school. Symptoms usually improve within 1 to 2 days. However, it is important for the child to finish the entire course of treatment (usually 10 days). If a child does not begin to improve or worsens within 3 days, the child should be reevaluated. Throat pain can be treated with a non-prescription pain medication, if needed. (See 'Pain medications' below.) In addition, parents should monitor their child for dehydration, which can develop if the child is not willing to drink or eat due to a sore throat. (See 'Monitor for dehydration' below.) Viral throat pain - Sore throat caused by viral infections usually last 4 to 5 days. During this time, treatments to reduce pain may be helpful but will not help to eliminate the virus. Antibiotics do not improve throat pain caused by a virus and are not recommended. A child with a viral infection is usually allowed to return to school when there has been no fever for 24 hours and the child feels well enough to pay attention. Pain medications - Throat pain can be treated with a mild pain reliever such as acetaminophen (Tylenol ) or a non-steroidal anti-inflammatory agent such as ibuprofen (Motrin ). These medications should be dosed according to weight, not age. Aspirin is not recommended for children <18 years due to the risk of a potentially serious condition known as Oscar syndrome. Monitor for dehydration - Some children with a sore throat are reluctant to drink or eat due to pain. Drinking less fluid can lead to dehydration. To reduce the risk of dehydration, parents can offer warm or cold liquids. (See 'Other interventions' below.) Signs and symptoms of mild dehydration include a slightly dry mouth, increased thirst, and decreased urine output (one wet diaper or void in six hours). Signs of moderate or severe dehydration include decreased urine output (less than one wet diaper or void in six hours), lack of tears when crying, dry mouth, and sunken eyes. A child who is moderately or severely dehydrated should be evaluated by a healthcare provider as soon as possible to determine if treatment is needed. Oral rinses- Salt-water gargles are an old stand-by for relief of throat pain. It is not clear if this treatment is effective, but it is unlikely to be harmful. Most recipes suggest 1/4 to 1/2 teaspoon of salt per cup (8 ounces) of warm water. The water should be gargled and then spit out (not swallowed). Children younger than six to eight years are not able to gargle properly. An oral rinse composed of equal parts of diphenhydramine (Benadryl liquid) and Maalox (magnesium hydroxide, aluminum hydroxide, and simethicone) may be helpful for pain caused by a sore mouth or ulcers in the mouth. Children older than six to eight years may swish and spit (not swallow) the mixture. Sprays - Sprays containing topical anesthetics are available to treat sore throat. However, such sprays are no more effective than sucking on hard candy. In addition, a common anesthetic ingredient, benzocaine, can cause allergic reactions. We do not recommend throat sprays for children. Lozenges - A variety of medicated throat lozenges are available to relieve dryness or pain. However, it is not clear that lozenges work any better than hard candy. We do not recommend throat lozenges for children, especially children younger than 3 to 4 years, who can choke. Sucking on hard candy may provide some relief for children older than 3 to 4 years, who are not at risk for choking. Other interventions - Other interventions include sipping warm beverages (eg, honey or lemon tea, chicken soup), cold beverages, or eating cold or frozen desserts (eg, ice cream, popsicles). These treatments are safe for children. Honey should not be given to children younger than 12 months due to the potential risk of botulism poisoning. Alternative therapies - Health food stores, vitamin outlets, and Internet Web sites offer alternative treatments for relief of sore throat pain. We do not recommend these treatments due to the risks of contamination with pesticides/herbicides, inaccurate labeling and dosing information, and a lack of studies showing that these treatments are safe and effective. SORE THROAT PREVENTION - Hand washing is an essential and highly effective way to prevent the spread of infection. Hands should be wet with water and plain soap, and rubbed together for 15 to 30 seconds. Special attention should be paid to the fingernails, between the fingers, and the wrists. Hands should be rinsed thoroughly, and dried with a single use towel. Alcohol-based hand rubs are a good alternative for disinfecting hands if a sink is not available. Hand rubs should be spread over the entire surface of hands, fingers, and wrists until dry, and may be used several times. These rubs can be used repeatedly without skin irritation or loss of effectiveness. Hand rubs are available as a liquid or wipe in small, portable sizes that are easy to carry in a pocket or handbag. When a sink is available, visibly soiled hands should be washed with soap and water. Hands should be washed after coughing, blowing the nose or sneezing. While it is not always possible to limit contact with a person who is sick, avoiding touching the eyes, nose, or mouth after direct contact can help to prevent the spread of infection. In addition, tissues should be used to cover the mouth when sneezing or coughing. These used tissues should be disposed of promptly. Sneezing/coughing into the sleeve of one's clothing (at the inner elbow) is another means of containing sprays of saliva and secretions and has the advantage of not contaminating the hands. WHEN TO SEEK HELP - Parents of a child with throat pain and one or more of the following should contact their healthcare provider immediately: Difficulty swallowing or breathing Excessive drooling in an or young child Temperature ?101 F or 38.3 C Swelling of the neck Child is unable or unwilling to drink or eat Voice sounds muffled Child has a stiff neck or difficulty opening the mouth WHERE TO GET MORE INFORMATION - Your child's healthcare provider is the best source of information for questions and concerns related to your child's medical problem. This article will be updated as needed every four months on our web site ([email or web address]). Information below was obtained from Up to date Last literature review version 19.2: March 2011 This topic last updated: June 27, 2010 documented in this encounter [facility] 03-25-2023 History of Presen t illness Narrative Subjective Sore Throat Associated symptoms include headaches. Pertinent negatives include no abdominal pain, congestion, coughing, diarrhea, ear pain or vomiting. Jimena Norwood is a 38 year old male who presents with body aches and sore throat. He has had this for one day. His kids were recently diagnosed with strep- one as recently as yesterday. He has not had a fever. Review of Systems Constitutional: Negative for chills and fever. HENT: Positive for sore throat. Negative for congestion and ear pain. Respiratory: Negative for cough. Cardiovascular: Negative. Gastrointestinal: Negative for abdominal pain, diarrhea, nausea and vomiting. Musculoskeletal: Positive for myalgias. Skin: Negative. Neurological: Positive for headaches. BP 122/80 Pulse 78 Temp 36.2 C (97.1 F) (Tympanic) Resp 16 Wt 122.1 kg (269 lb 3.2 oz) SpO2 96% BMI 39.75 kg/m PAST MEDICAL HISTORY Diagnosis Date Epigastric pain Indigestion Knee pain -right Known medical problems Pes anserinus tendinitis and bursitis Patellar tendonitis - right Pes planus Sprain of interphalangeal joint of finger - right PAST SURGICAL HISTORY Procedure Laterality Date PAST SURGICAL HISTORY OF 08/2010 Oral surgery ALLERGIES Patient has no known allergies. MEDICATIONS pantoprazole DR (PROTONIX) 40 mg tablet Take 40 mg by mouth once daily. meloxicam (MOBIC) 15 mg tablet Take 1 tablet by mouth once daily. With food. (Patient not taking: Reported on 12/23/2022) Councglzgunuuip-Vvmxusayp-MI (BROMFED DM) 2-30-10 mg/5 mL syrup Take 5-10 ml po q6h prn (Patient not taking: Reported on 01/16/2022 ) mupirocin (BACTROBAN) 2 % ointment Apply 1 application to affected area three times daily. Location: left great toe (Patient not taking: Reported on 01/17/2019 ) FAMILY HISTORY Problem Relation Age of Onset other (Diabetes mellitus) Sister other (Diabetes mellitus) Other other (Diabetes mellitus) Other Hyperlipidemia Father Hypertension Father Hyperlipidemia Brother Hypertension Brother Social History Tobacco Use Smoking status: Never Smokeless tobacco: Never Vaping Use Vaping Use: Never used Substance Use Topics Alcohol use: Yes Comment: socially Drug use: No Objective Physical Exam Vitals and nursing note reviewed. Constitutional: Appearance: Normal appearance. HENT: Right Ear: Tympanic membrane, ear canal and external ear normal. Left Ear: Tympanic membrane, ear canal and external ear normal. Nose: Nose normal. Mouth/Throat: Mouth: Mucous membranes are moist. Pharynx: Uvula midline. Posterior oropharyngeal erythema present. No oropharyngeal exudate. Cardiovascular: Rate and Rhythm: Normal rate and regular rhythm. Heart sounds: Normal heart sounds. Pulmonary: Effort: Pulmonary effort is normal. No respiratory distress. Breath sounds: Normal breath sounds. No wheezing or rales. Musculoskeletal: Cervical back: Neck supple. Lymphadenopathy: Cervical: No cervical adenopathy. Skin: General: Skin is warm and dry. Findings: No erythema or rash. Neurological: Mental Status: He is alert. ASSESSMENT/PLAN: 1. Sore throat - ICD9: 462, ICD10: J02.9 - suspect viral - Alere Strep Test negative, no culture pending - Discussed supportive care treatment with fluids, rest and analgesia. - STREP A MOLECULAR (POC) - Follow-up with your PCP in 3-5 days if symptoms have not improved or sooner if symptoms worsen - Discussed red flags and need for immediate medical evaluation if any occur. - Discussed supportive care treatment with fluids, rest and analgesia. - Discussed expected course of illness Jasmyne Kemp APRN.INTERACTIVE [employer]IA [employer]ETING STRATEGIST documented in this encounter [facility] 12-23-2022 Note HNO ID: [id number] Author: Angelique Guzman Service: ? Author Type: ? Type: Progress Notes Filed: 12/23/2022 11:22 AM Note Text: This note was created using Rem[employer]. Subjective Jimena Norwood is a 37 year old male CC of right eye drainage that started a week and a half ago and recently noticed waking up with R eye crusts (yellow) that started a couple of days ago. Reports that friends daughter had pink eye. 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 Wears eye protection at work. No history of environmental allergies. Review of Systems Constitutional: Negative for chills, diaphoresis, fatigue and fever. HENT: Positive for sinus pressure. Negative for congestion, ear pain, rhinorrhea, sinus pain and sore throat. Eyes: Positive for discharge (clear) and itching. Negative for photophobia, pain, redness and visual disturbance. Respiratory: Positive for cough (productive, one month). Negative for shortness of breath and wheezing. Cardiovascular: Negative for chest pain. Gastrointestinal: Negative for abdominal pain, diarrhea, nausea and vomiting. Allergic/Immunologic: Positive for food allergies (lactose intolerant). Negative for environmental allergies. Neurological: Negative for headaches. PAST MEDICAL HISTORY Diagnosis Date Epigastric pain Indigestion Knee pain -right Known medical problems Pes anserinus tendinitis and bursitis Patellar tendonitis - right Pes planus Sprain of interphalangeal joint of finger - right PAST SURGICAL HISTORY Procedure Laterality Date PAST SURGICAL HISTORY OF 08/2010 Oral surgery ALLERGIES Patient has no known allergies. MEDICATIONS meloxicam (MOBIC) 15 mg tablet Take 1 tablet by mouth once daily. With food. (Patient not taking: Reported on 12/23/2022) Fjtbyllmlofsjbh-Bsbmmadsd-VS (BROMFED DM) 2-30-10 mg/5 mL syrup Take 5-10 ml po q6h prn (Patient not taking: Reported on 01/16/2022 ) mupirocin (BACTROBAN) 2 % ointment Apply 1 application to affected area three times daily. Location: left great toe (Patient not taking: Reported on 01/17/2019 ) FAMILY HISTORY Problem Relation Age of Onset other (Diabetes mellitus) Sister other (Diabetes mellitus) Other other (Diabetes mellitus) Other Hyperlipidemia Father Hypertension Father Hyperlipidemia Brother Hypertension Brother Social History Tobacco Use Smoking status: Never Smokeless tobacco: Never Vaping Use Vaping Use: Never used Substance Use Topics Alcohol use: Yes Comment: socially Drug use: No Objective BP 122/76 Pulse 75 Temp 36.5 ?C (97.7 ?F) Resp 23 Wt 120.5 kg (265 lb 9.6 oz) SpO2 98% BMI 39.22 kg/m? Physical Exam Constitutional: Appearance: Normal appearance. He is not ill-appearing. HENT: Head: Normocephalic and atraumatic. Right Ear: Tympanic membrane, ear canal and external ear normal. Left Ear: Tympanic membrane, ear canal and external ear normal. Nose: Mucosal edema present. No congestion or rhinorrhea. Mouth/Throat: Mouth: Mucous membranes are moist. Pharynx: Oropharynx is clear. Posterior oropharyngeal erythema (cobblestone) present. Eyes: General: Lids are normal. Lids are everted, no foreign bodies appreciated. No allergic shiner or scleral icterus. Right eye: No discharge or hordeolum. Left eye: No discharge or hordeolum. Conjunctiva/sclera: Right eye: Right conjunctiva is injected (mild). Left eye: Left conjunctiva is not injected. Pupils: Pupils are equal, round, and reactive to light. Cardiovascular: Rate and Rhythm: Normal rate and regular rhythm. Heart sounds: Normal heart sounds. Pulmonary: Effort: Pulmonary effort is normal. Breath sounds: Normal breath sounds. Lymphadenopathy: Cervical: No cervical adenopathy. Neurological: Mental Status: He is alert. Assessment and Plan 1. Acute atopic conjunctivitis of right eye - ICD9: 372.05, ICD10: H10.11 (primary diagnosis) Allergic - Instructed to call if high fever, development of periorbital redness or swelling, eye pain, visual changes, concerns or if symptoms persist. - Patient to roller picker over the counter Oral Antihistamine (Zyrtec or Claritin) and take one pill, once a day. Follow package instructions. Also to roller picker over the counter Antihistamine Eye drops (Pataday or Zaditor) one drop in each eye. Follow package instructions -Patient to return if new vision changes, sensation of something being in the eye, eye redness worsens, or eye pain develops. 2. Post-nasal drip - ICD9: 784.91, ICD10: R09.82 - Patient to roller picker OTC Flonase (Fluticasone) and use once a day, two sprays in each nostril and rinse mouth after. Discussed proper administration. - Also to roller picker OTC Oral Antihistamine (Zyrtec or Claritin) one pill, once a day. Follow package instructions. 3. Seasonal allergic rhinitis, unspecified trigger - ICD9: 477.9, ICD10: J30.2 - See interventions above. Angelique Guzman APRN-student [facility] 12-23-2022 Instructions Angelique Guzman - 12/23/2022 11:04 AM EST ASSESSMENT/PLAN: 1. Acute atopic conjunctivitis of right eye - ICD9: 372.05, ICD10: H10.11 (primary diagnosis) Allergic - Instructed to call if high fever, development of periorbital redness or swelling, eye pain, visual changes, concerns or if symptoms persist. - Patient to roller picker over the counter Oral Antihistamine (Zyrtec or Claritin) and take one pill, once a day. Follow package instructions. Also to roller picker over the counter Antihistamine Eye drops (Pataday or Zaditor) one drop in each eye. Follow package instructions -Patient to return if new vision changes, sensation of something being in the eye, eye redness worsens, or eye pain develops. 2. Post-nasal drip - ICD9: 784.91, ICD10: R09.82 - Patient to roller picker OTC Flonase (Fluticasone) and use once a day, two sprays in each nostril and rinse mouth after. Discussed proper administration. - Also to roller picker OTC Oral Antihistamine (Zyrtec or Claritin) one pill, once a day. Follow package instructions. 3. Seasonal allergic rhinitis, unspecified trigger - ICD9: 477.9, ICD10: J30.2 - See interventions above. Angelique Guzman APRN-student [employer] [facility] PATIENT INFO ALLERGIC RHINITIS OVERVIEW Rhinitis refers to inflammation of the nasal passages. This inflammation can cause a variety of annoying symptoms, including sneezing, itching, nasal congestion, runny nose, and post-nasal drip (the sensation that mucus is draining from the sinuses down the back of the throat). Brief episodes of rhinitis are usually caused by respiratory tract infections with viruses (eg, the common cold). Chronic rhinitis is usually caused by allergies, but it can also occur from overuse of certain drugs, some medical conditions, and other unidentifiable factors. For many people, rhinitis is a lifelong condition that waxes and wanes over time. Fortunately, the symptoms of rhinitis can usually be controlled with a combination of environmental measures, medications, and immunotherapy (also called allergy shots). WHO GETS ALLERGIC RHINITIS? Allergic rhinitis, also known as hay fever, affects approximately 20 percent of people of all ages. The risk of developing allergic rhinitis is much higher in people with asthma or eczema and in people who have a family history of asthma or rhinitis. Allergic rhinitis can begin at any age, although most people first develop symptoms in childhood or young adulthood. The symptoms are often at their worst in children and in people in their 30s and 40s. However, the severity of symptoms tends to vary throughout life; many people experience periods when they have no symptoms at all. ALLERGIC RHINITIS CAUSES Allergic rhinitis is caused by a nasal reaction to small airborne particles called allergens (substances that provoke an allergic reaction). In some people, these particles also cause reactions in the lungs (asthma) and eyes (allergic conjunctivitis). The allergic reaction is characterized by activation of two types of inflammatory cells, called mast cells and basophils. These cells produce inflammatory substances, including histamine, that cause fluid to build up in the nasal tissues (congestion), itching, sneezing, and runny nose. Over several hours, these substances activate other inflammatory cells that can cause persistent symptoms. Seasonal versus perennial allergic rhinitis -- Allergic rhinitis can be seasonal (occurring during specific seasons) or perennial (occurring year round). The allergens that most commonly cause seasonal allergic rhinitis include pollens from trees, grasses, and weeds, as well as spores from fungi and molds. The allergens that most commonly cause perennial allergic rhinitis are dust mites, cockroaches, animal dander, and fungi or molds. Perennial allergic rhinitis tends to be more difficult to treat. ALLERGIC RHINITIS SYMPTOMS The symptoms of allergic rhinitis vary from person to person. Although the term rhinitis refers only to the nasal symptoms, many patients also experience problems with their eyes, throat, ears, and sleep, so it is helpful to consider the entire spectrum of symptoms. Nose: watery nasal discharge, blocked nasal passages, sneezing, nasal itching, post-nasal drip, loss of taste, facial pressure or pain Eyes: itchy, red eyes, feeling of grittiness in the eyes, swelling and blueness of the skin below the eyes (called allergic shiners) Throat and ears: sore throat, hoarse voice, congestion or popping of the ears, itching of the throat or ears Sleep: mouth breathing, frequent awakening, daytime fatigue, difficulty performing work When an allergen is present year round, the predominant symptoms include post-nasal drip, persistent nasal congestion, and poor-quality sleep. ALLERGIC RHINITIS DIAGNOSIS The diagnosis of allergic rhinitis is based upon a physical examination and the symptoms described above. Medical tests can confirm the diagnosis and identify the offending allergens. Identify allergens and other triggers -- It is often possible to identify the allergens and other triggers that provoke allergic rhinitis by: Recalling the factors that precede symptoms Noting the time at which symptoms begin Identifying potential allergens in a person's home, work, and school environments Skin tests may be useful for people whose symptoms are not well controlled with medications or in whom the offending allergen is not obvious. ALLERGIC RHINITIS TREATMENT The treatment of allergic rhinitis includes reducing exposure to allergens and other triggers, in combination with medication therapy. In most people, these measures effectively control the symptoms. Reduce exposure to triggers -- Some simple measures can reduce a person's exposure to allergens and triggers that provoke allergic rhinitis. Several different classes of drugs counter the inflammation that causes symptoms of allergic rhinitis. The severity of symptoms and personal preferences usually guide the selection of specific drugs. Nasal irrigation and saline sprays -- Rinsing the nose with a salt-water (saline) solution is called nasal irrigation or nasal lavage. Saline is also available in a standard nasal spray, although this is not as effective as using larger amounts of water in an irrigation. Nasal irrigation is particularly useful for treating drainage down the back of the throat, sneezing, nasal dryness, and congestion. The treatment helps by rinsing out allergens and irritants from the nose. Saline rinses also clean the nasal lining and can be used before applying sprays containing medications, to get a better effect from the medication. Nasal lavage with warmed saline can be performed as needed, once per day, or twice daily for increased symptoms. Nasal lavage carries few risks when performed correctly. Saline nasal sprays and irrigation kits can be purchased [id number]. Saline mixes can also be purchased or patients can make their own solution. A variety of devices, including bulb syringes, Neti pots, and bottle sprayers, may be used to perform nasal lavage; instructions for nasal lavage are provided in the table. At least 200 mL (about 3/4 cup) of fluid is recommended for each nostril. Nasal glucocorticoids -- Nasal glucocorticoids (steroids delivered by a nasal spray) are the first-line treatment for the symptoms of allergic rhinitis. These drugs have few side effects and dramatically relieve symptoms in most people. Studies have shown that nasal glucocorticoids are more effective than oral antihistamines for symptom relief. There are a number of nasal glucocorticoids available by prescription. Specific medications include fluticasone, mometasone, budesonide, flunisolide, triamcinolone, beclomethasone, fluticasone furoate, and ciclesonide. These drugs differ with regard to the frequency of doses, the spray device, and cost, but all are similarly effective for treating all the symptoms of allergic rhinitis. People with severe rhinitis may need to use a nasal decongestant for a few days before starting a nasal glucocorticoids to reduce nasal swelling, which will allow the nasal spray to reach more areas of the nasal passages. Some symptom relief may occur on the first day of therapy with nasal glucocorticoids, although their maximal effectiveness may not be noticeable for days to weeks. For this reason, nasal glucocorticoids are most effective when used regularly. Some people are able to use lower doses when symptoms are less severe. How to use a nasal spray -- Nasal sprays work best when they are used properly and the medication remains in the nose rather than draining down the back of the throat. If the nose is crusted or contains mucus, it should be cleaned with a saline nasal spray before a nasal spray that contains medication. The head should be positioned normally or with the chin slightly tucked. The spray should be directed away from the nasal septum (the cartilage that divides the two sides of the nose). The spray is dispensed and then sniffed in slightly to pull it into the higher parts of the nose. Sniffing too hard will result in the medicine draining down the throat, and should be avoided. Some people find that holding one nostril closed with a finger improves their ability to draw the spray into the upper nose. Medicine that drains into the throat may be spit out. Side effects -- The side effects of nasal steroids are mild and may include a mildly unpleasant smell or taste or drying of the nasal lining. In some people, nasal steroids cause irritation, crusting, and bleeding of the nasal septum, especially during the winter. These problems can be minimized by reducing the dose of the nasal steroid, applying a moisturizing nasal gel or spray to the septum before using the spray, or switching to a water-based (rather than an alcohol-based) spray. Studies suggest that nasal steroids are generally safe when used for many years. However, people who use these drugs for years should have periodic nasal examinations to check for rare side effects, such as nasal infection. Steroids taken as a pill or inhaled into the lungs can have side effects, especially when taken for long periods of time. However, the doses used in nasal steroids are low and are NOT associated with these side effects. However, clinicians usually recommend using the lowest effective dose. Antihistamines -- Antihistamines relieve the itching, sneezing, and runny nose of allergic rhinitis, but they do not relieve nasal congestion. Combined treatment with nasal steroids or decongestants may provide greater symptom relief than use of either alone. Oral medications -- Several antihistamines have been available for many years without a prescription, including brompheniramine (Dimetapp allergy , Nasahist B ), chlorpheniramine (Chlor-Trimeton ), diphenhydramine (Benadryl ), and clemastine (Tavist ). These drugs often cause sedation and should not be used before driving or operating machinery. Even if the person does not feel excessively drowsy, these drugs can have a sedating effect. Thus, patients should use caution. Less-sedating oral antihistamines include Loratadine (Claritin , Alavert ), desloratadine (Clarinex ), cetirizine (Zyrtec ), levocetirizine (Xyzal ), and fexofenadine (Eleanor ). Loratadine and cetirizine are available without a prescription. These drugs work as well as the sedating antihistamines for rhinitis, but they are less sedating and are available in long-acting formulas. However, they may be more expensive. Nasal sprays -- Azelastine (Astelin ) and olopatadine (Patanase ) are prescription nasal antihistamine sprays that can be used daily or when needed to relieve symptoms of post-nasal drip, congestion, and sneezing. These sprays start to work within minutes after use. The most common side effect with azelastine is a bad taste in the mouth immediately after use. This can be minimized by keeping the head tilted forward while spraying, to prevent the medicine from draining down the throat. Decongestants -- Decongestants (like pseudoephedrine or phenylephrine [Sudafed , Actifed , Drixoral ]) are often combined with antihistamines in oral, iuiz-urf-obficht allergy drugs. In the [place], pseudoephedrine has been used to make illegal drugs, which caused many companies to substitute phenylephrine for pseudoephedrine. However, phenylephrine is not effective for treating allergic rhinitis. Oral decongestants elevate blood pressure and are not appropriate for people with high blood pressure or certain cardiovascular conditions. Men with an enlarged prostate who have difficulty urinating may notice a worsening of this symptom when they take decongestants. Decongestants in the form of nasal sprays are also available, including oxymetazoline (Afrin ) and phenylephrine (Danny-synephrine ). Nasal decongestant sprays should not be used for more than two to three days at a time because they may cause a type of rhinitis called rhinitis medicamentosa, which causes the nose to be congested constantly UNLESS the medication is used repeatedly. This condition can be difficult to treat. To avoid it, do not use decongestant sprays for more than 3 days. Cromolyn sodium -- Cromolyn sodium (Nasalcrom ) prevents the symptoms of allergic rhinitis by interfering with the ability of allergy cells to release natural chemicals that cause inflammation. This drug is available as an wzie-mfx-mzjqjhb nasal spray that must be used three to four times per day, preferably before symptoms have begun, to effectively prevent the symptoms of allergic rhinitis. Allergy shots -- Allergy shots, also known as allergen immunotherapy, are injections given to reduce a person's sensitivity to allergens. Allergy shots are only available for common allergens, such as pollens, cat and dog dander, dust mites, and molds. These shots contain solutions of the allergens to which a specific person is allergic, and are made up individually for each person. The process of immunotherapy changes the person's immune response to the allergens over time. As a result, being exposed to the allergen causes fewer or even no symptoms. Immunotherapy can help many people with allergic rhinitis. In children, immunotherapy can help prevent developing allergic asthma later in life. However, immunotherapy is relatively time-consuming and is often reserved for people who have a poor response to medication, or want to avoid taking medications long-term. Immunotherapy can be expensive, but many insurance plans cover the therapy because long-term use of allergy medications is also costly. Immunotherapy is usually started by an ceo [place]. Treatment begins with several months of weekly injections of gradually increasing doses, followed by monthly maintenance injections. The maintenance injections can be given by a primary care provider. Immunotherapy is usually a long-term therapy, and the benefits of this therapy may lessen when it is discontinued. However, one study in people with allergies to grass pollen found that the benefits of three to four years of immunotherapy persisted when the injections were stopped [2]. Immunotherapy injections carry a small risk of a severe allergic reaction. These reactions occur with a frequency of 6 of every 10,000 injections. The symptoms usually begin within 30 minutes of the injection. For this reason, patients are required to remain in the office after routine injections so that such a reaction could be quickly treated. Because drugs called beta-blockers may interfere with the ability to treat these reactions, people who take beta-blockers are often advised to avoid immunotherapy. Other treatments -- Other drugs may be recommended for some people with allergic rhinitis. Ipratropium -- Nasal atropine is effective for the treatment of severe runny nose. This drug, available as ipratropium bromide (Atrovent ), is not generally recommended for people with glaucoma or men with an enlarged prostate. Leukotriene modifiers -- Release of substances called leukotrienes may contribute to the symptoms of allergic rhinitis. Drugs that block the actions of leukotrienes, called leukotriene modifiers, can be very useful in patients with asthma and allergic rhinitis. However, nasal steroids are more effective than leukotriene modifiers for treating allergic rhinitis; thus, leukotriene modifiers are generally reserved for patients who cannot tolerate nasal sprays (due to nose bleeds) or azelastine. documented in this encounter [facility] 12-23-2022 History of Presen t illness Narrative This note was created using Remitly. Subjective Jimena Norwood is a 37 year old male CC of right eye drainage that started a week and a half ago and recently noticed waking up with R eye crusts (yellow) that started a couple of days ago. Reports that friends daughter had pink eye. 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 Wears eye protection at work. No history of environmental allergies. Review of Systems Constitutional: Negative for chills, diaphoresis, fatigue and fever. HENT: Positive for sinus pressure. Negative for congestion, ear pain, rhinorrhea, sinus pain and sore throat. Eyes: Positive for discharge (clear) and itching. Negative for photophobia, pain, redness and visual disturbance. Respiratory: Positive for cough (productive, one month). Negative for shortness of breath and wheezing. Cardiovascular: Negative for chest pain. Gastrointestinal: Negative for abdominal pain, diarrhea, nausea and vomiting. Allergic/Immunologic: Positive for food allergies (lactose intolerant). Negative for environmental allergies. Neurological: Negative for headaches. PAST MEDICAL HISTORY Diagnosis Date Epigastric pain Indigestion Knee pain -right Known medical problems Pes anserinus tendinitis and bursitis Patellar tendonitis - right Pes planus Sprain of interphalangeal joint of finger - right PAST SURGICAL HISTORY Procedure Laterality Date PAST SURGICAL HISTORY OF 08/2010 Oral surgery ALLERGIES Patient has no known allergies. MEDICATIONS meloxicam (MOBIC) 15 mg tablet Take 1 tablet by mouth once daily. With food. (Patient not taking: Reported on 12/23/2022) Gvoovfydetfcyta-Wcdlpfmhz-GM (BROMFED DM) 2-30-10 mg/5 mL syrup Take 5-10 ml po q6h prn (Patient not taking: Reported on 01/16/2022 ) mupirocin (BACTROBAN) 2 % ointment Apply 1 application to affected area three times daily. Location: left great toe (Patient not taking: Reported on 01/17/2019 ) FAMILY HISTORY Problem Relation Age of Onset other (Diabetes mellitus) Sister other (Diabetes mellitus) Other other (Diabetes mellitus) Other Hyperlipidemia Father Hypertension Father Hyperlipidemia Brother Hypertension Brother Social History Tobacco Use Smoking status: Never Smokeless tobacco: Never Vaping Use Vaping Use: Never used Substance Use Topics Alcohol use: Yes Comment: socially Drug use: No Objective BP 122/76 Pulse 75 Temp 36.5 C (97.7 F) Resp 23 Wt 120.5 kg (265 lb 9.6 oz) SpO2 98% BMI 39.22 kg/m Physical Exam Constitutional: Appearance: Normal appearance. He is not ill-appearing. HENT: Head: Normocephalic and atraumatic. Right Ear: Tympanic membrane, ear canal and external ear normal. Left Ear: Tympanic membrane, ear canal and external ear normal. Nose: Mucosal edema present. No congestion or rhinorrhea. Mouth/Throat: Mouth: Mucous membranes are moist. Pharynx: Oropharynx is clear. Posterior oropharyngeal erythema (cobblestone) present. Eyes: General: Lids are normal. Lids are everted, no foreign bodies appreciated. No allergic shiner or scleral icterus. Right eye: No discharge or hordeolum. Left eye: No discharge or hordeolum. Conjunctiva/sclera: Right eye: Right conjunctiva is injected (mild). Left eye: Left conjunctiva is not injected. Pupils: Pupils are equal, round, and reactive to light. Cardiovascular: Rate and Rhythm: Normal rate and regular rhythm. Heart sounds: Normal heart sounds. Pulmonary: Effort: Pulmonary effort is normal. Breath sounds: Normal breath sounds. Lymphadenopathy: Cervical: No cervical adenopathy. Neurological: Mental Status: He is alert. Assessment and Plan 1. Acute atopic conjunctivitis of right eye - ICD9: 372.05, ICD10: H10.11 (primary diagnosis) Allergic - Instructed to call if high fever, development of periorbital redness or swelling, eye pain, visual changes, concerns or if symptoms persist. - Patient to roller picker over the counter Oral Antihistamine (Zyrtec or Claritin) and take one pill, once a day. Follow package instructions. Also to roller picker over the counter Antihistamine Eye drops (Pataday or Zaditor) one drop in each eye. Follow package instructions -Patient to return if new vision changes, sensation of something being in the eye, eye redness worsens, or eye pain develops. 2. Post-nasal drip - ICD9: 784.91, ICD10: R09.82 - Patient to roller picker OTC Flonase (Fluticasone) and use once a day, two sprays in each nostril and rinse mouth after. Discussed proper administration. - Also to roller picker OTC Oral Antihistamine (Zyrtec or Claritin) one pill, once a day. Follow package instructions. 3. Seasonal allergic rhinitis, unspecified trigger - ICD9: 477.9, ICD10: J30.2 - See interventions above. Angelique Guzman APRN-student documented in this encounter [facility] 09-02-2022 Note HNO ID: [id number] Author: Gerardo Zeng MA Service: ? Author Type: Assistant Buyer Type: Progress Notes Filed: 09/02/2022 2:51 PM Note Text: Patient strep test Positive, VV provider to treat. Gerardo Zeng MA [facility] 09-02-2022 Note HNO ID: [id number] Author: Barb Talavera APRN.SHANNAN Service: ? Author Type: Nurse Practitioner Type: Progress Notes Filed: 09/02/2022 1:56 PM Note Text: Telemedicine Visit - Distance Health Virtual Visit Note Patient seen on [employer] [facility] Online platform. Location of patient: [place] History of Present Illness Jimena Norwood is a 37 year old year old male who presents for the past 2 days with symptoms that are:gradually worsening. +strep exposure via and dtr had strep last week Sore throat, fever sweating chills headache , 'feel like crud' COVID tested: yes COVID VACCINE: no Symptoms include: See above Oral intake: ok Tobacco use: No Second hand smoke exposure: No Recent exposure to strep:No Sick contacts: yes Recent travel: no OTC meds/remedies that patient has tried: ibuprofen . PAST MEDICAL HISTORY Diagnosis Date Epigastric pain Indigestion Knee pain -right Known medical problems Pes anserinus tendinitis and bursitis Patellar tendonitis - right Pes planus Sprain of interphalangeal joint of finger - right PAST SURGICAL HISTORY Procedure Laterality Date PAST SURGICAL HISTORY OF 08/2010 Oral surgery FAMILY HISTORY Problem Relation Age of Onset other (Diabetes mellitus) Sister other (Diabetes mellitus) Other other (Diabetes mellitus) Other Hyperlipidemia Father Hypertension Father Hyperlipidemia Brother Hypertension Brother Social History Tobacco Use Smoking status: Never Smokeless tobacco: Never Vaping Use Vaping Use: Never used Substance Use Topics Alcohol use: Yes Comment: socially Drug use: No Current Outpatient Medications Medication Sig meloxicam (MOBIC) 15 mg tablet Take 1 tablet by mouth once daily. With food. Tvrpmqdnxaqtski-Mczqpzwzu-XV (BROMFED DM) 2-30-10 mg/5 mL syrup Take 5-10 ml po q6h prn (Patient not taking: Reported on 01/16/2022 ) mupirocin (BACTROBAN) 2 % ointment Apply 1 application to affected area three times daily. Location: left great toe (Patient not taking: Reported on 01/17/2019 ) No current facility-administered medications for this visit. ALLERGIES No Known Allergies Video Exam (Examination performed via Video enabled technology) General appearance Alert, oriented, pleasant, in NAD: Yes Ill appearing: No Lethargic appearing: No HEENT Eyes: Sclera clear :Yes Conjunctiva without erythema :Yes Frontal sinus tenderness by self palpation;Yes Maxillary sinus tenderness by self palpation :No Ears: Tragus / outer ear tenderness by self palpation : caused pt to cough and nauseated Tender cervical adenopathy by self palpation :Yes Oropharynx: moderate erythema and tonsillar hypertrophy, 3+ PULMONARY Respiratory distress: No Coughing noted: Yes Audible wheezing noted: No ======== Centor Criteria - Age (2-14=+1, 15-44=0, >=45 -1): -1 - Tonsillar exudates: 0 - Tender anterior cervical adenopathy: +1 - Fever by history (>38 or 100.4): +1 - Absence of cough: 0 0 points- probability of strep is 1-2.5% 1 point- probability of strep is 5-10% 2 points- probability of strep is 11-17% 3 points- probability of strep is 28-35% 4 points- probability of strep is 51-53% == ASSESSMENT/PLAN: 1. Sore throat - ICD9: 462, ICD10: J02.9 (primary diagnosis) - suspect strep - Discussed supportive care treatment with fluids, rest and analgesia. - The patient may also use warm salt water gargles, throat lozenges and/or OTC throat spray as needed and NSAIDs. - Contagious dz precautions discussed- including considered contagious until on antibiotics for 24 hours - The patient should follow up in 3-5 days if symptoms persist or worsen - STREP A MOLECULAR (POC) 2. Acute pharyngitis, unspecified etiology - ICD9: 462, ICD10: J02.9 -strep testing today at [place] [facility] 3. Strep throat exposure - ICD9: V01.89, ICD10: Z20.818 - Reviewed OTC medications and supplements to help w/ sxs - Encouraged good hydration, handwashing and use of humidified air - Encouraged REST - Red flags discussed for need for in person care - All questions answered Babr Talavera APRN.INTERACTIVE MEDIA MARKETING STRATEGIST If you let us know who your primary care provider is, we will send them a notification of today?s visit through our electronic medical records system. Since not all providers have access to our notifications, we strongly encourage you to share the following record of today?s visit with your primary care provider at your next visit. This will help in providing you the best care. [facility] 09-02-2022 History of Presen t illness Narrative Patient strep test Positive, VV provider to treat. Gerardo Zeng MA documented in this encounter [facility] 09-02-2022 Instructions Barb Talavera APRN.INTERACTIVE MEDIA MARKETING STRATEGIST - 09/02/2022 1:56 PM EDT SORE THROAT INSTRUCTIONS SORE THROAT OVERVIEW - Sore throat is a common problem during childhood, and is usually the result of a bacterial or viral infection. Although sore throat usually resolves without complications, it sometimes requires treatment with an antibiotic. There are some less common causes of sore throat that are serious or even life-threatening. This topic will discuss the most common causes and treatments of sore throat in children, as well as the warning signs of more serious conditions. SORE THROAT CAUSES - The most likely cause of a child's sore throat depends upon the child's age, the season, and the geographic area. While viruses are the most common cause of sore throat, bacteria are another common cause. Bacteria and viruses are spread from one person to another through hand contact. Hands get contaminated when the sick individual touches their nose or mouth and then touches another person directly (gbdd-jf-vkpt contact) or indirectly (btij-ga-svfhqm, such as doorknob, telephone, toys). It is difficult to determine the cause of sore throat based upon symptoms alone; an examination and laboratory test are recommended in most cases Viruses - There are many viruses that can cause pain and swelling of the throat. The most common include viruses that cause sore throat as part of an upper respiratory infection, such as the common cold. Other viruses that cause sore throat include influenza, adenovirus, and Lori-Dyer virus (the cause of mononucleosis). Symptoms - Symptoms that may occur with a viral infection can include a runny nose and congestion, irritation or redness of the eyes, cough, hoarseness, soreness in the roof of the mouth, a skin rash, or diarrhea. In addition, children with viral infections may have a fever and may feel miserable. A high fever does not necessarily mean that the child has a bacterial infection. Group A streptococcus - Group A streptococcus (GAS) is the name of the bacterium that causes strep throat. Although other bacteria can cause a sore throat, GAS is the most common bacterial cause; up to 30 percent of children with a sore throat will have GAS. Strep throat usually occurs during the winter and early spring, and is most common in school-age children and their younger siblings. Symptoms - Symptoms of strep throat in children older than 3 years often develop suddenly and include fever (temperature ?100.4 F or 38 C), headache, abdominal pain, nausea, and vomiting. Other symptoms can include swollen glands in the neck, white patches of pus in the back or sides of the throat, small red spots on the roof of the mouth, and swelling of the uvula. A cough and cold are not commonly seen in children with strep throat. Strep throat is uncommon in children younger than age 2 to 3 years. However, GAS infection can occur in younger children, and may cause a runny nose and congestion that is prolonged, low-grade fever (?101 F or 38.3 C), and tender glands in the neck. Infants younger than 1 year may be fussy and have a decreased appetite and low-grade fever. SORE THROAT TREATMENT - The treatment of sore throat depends upon the cause; strep throat is treated with an antibiotic while viral pharyngitis is treated with rest, pain relievers, and other measures to reduce symptoms. Strep throat - Strep throat is usually treated with an antibiotic, such as penicillin, or an antibiotic similar to penicillin (eg, amoxicillin). Children who are allergic to penicillin will be given an alternate antibiotic. The antibiotic is usually given in pill or liquid form two or three times per day. A one-time injection is also available, and may be recommended if a child is unwilling to take an oral medication. After completing 24 hours of antibiotics, the child is no longer contagious and may return to school. Symptoms usually improve within 1 to 2 days. However, it is important for the child to finish the entire course of treatment (usually 10 days). If a child does not begin to improve or worsens within 3 days, the child should be reevaluated. Throat pain can be treated with a non-prescription pain medication, if needed. (See 'Pain medications' below.) In addition, parents should monitor their child for dehydration, which can develop if the child is not willing to drink or eat due to a sore throat. (See 'Monitor for dehydration' below.) Viral throat pain - Sore throat caused by viral infections usually last 4 to 5 days. During this time, treatments to reduce pain may be helpful but will not help to eliminate the virus. Antibiotics do not improve throat pain caused by a virus and are not recommended. A child with a viral infection is usually allowed to return to school when there has been no fever for 24 hours and the child feels well enough to pay attention. Pain medications - Throat pain can be treated with a mild pain reliever such as acetaminophen (Tylenol ) or a non-steroidal anti-inflammatory agent such as ibuprofen (Motrin ). These medications should be dosed according to weight, not age. Aspirin is not recommended for children <18 years due to the risk of a potentially serious condition known as Oscar syndrome. Monitor for dehydration - Some children with a sore throat are reluctant to drink or eat due to pain. Drinking less fluid can lead to dehydration. To reduce the risk of dehydration, parents can offer warm or cold liquids. (See 'Other interventions' below.) Signs and symptoms of mild dehydration include a slightly dry mouth, increased thirst, and decreased urine output (one wet diaper or void in six hours). Signs of moderate or severe dehydration include decreased urine output (less than one wet diaper or void in six hours), lack of tears when crying, dry mouth, and sunken eyes. A child who is moderately or severely dehydrated should be evaluated by a healthcare provider as soon as possible to determine if treatment is needed. Oral rinses- Salt-water gargles are an old stand-by for relief of throat pain. It is not clear if this treatment is effective, but it is unlikely to be harmful. Most recipes suggest 1/4 to 1/2 teaspoon of salt per cup (8 ounces) of warm water. The water should be gargled and then spit out (not swallowed). Children younger than six to eight years are not able to gargle properly. An oral rinse composed of equal parts of diphenhydramine (Benadryl liquid) and Maalox (magnesium hydroxide, aluminum hydroxide, and simethicone) may be helpful for pain caused by a sore mouth or ulcers in the mouth. Children older than six to eight years may swish and spit (not swallow) the mixture. Sprays - Sprays containing topical anesthetics are available to treat sore throat. However, such sprays are no more effective than sucking on hard candy. In addition, a common anesthetic ingredient, benzocaine, can cause allergic reactions. We do not recommend throat sprays for children. Lozenges - A variety of medicated throat lozenges are available to relieve dryness or pain. However, it is not clear that lozenges work any better than hard candy. We do not recommend throat lozenges for children, especially children younger than 3 to 4 years, who can choke. Sucking on hard candy may provide some relief for children older than 3 to 4 years, who are not at risk for choking. Other interventions - Other interventions include sipping warm beverages (eg, honey or lemon tea, chicken soup), cold beverages, or eating cold or frozen desserts (eg, ice cream, popsicles). These treatments are safe for children. Honey should not be given to children younger than 12 months due to the potential risk of botulism poisoning. Alternative therapies - Health food stores, vitamin outlets, and Internet Web sites offer alternative treatments for relief of sore throat pain. We do not recommend these treatments due to the risks of contamination with pesticides/herbicides, inaccurate labeling and dosing information, and a lack of studies showing that these treatments are safe and effective. SORE THROAT PREVENTION - Hand washing is an essential and highly effective way to prevent the spread of infection. Hands should be wet with water and plain soap, and rubbed together for 15 to 30 seconds. Special attention should be paid to the fingernails, between the fingers, and the wrists. Hands should be rinsed thoroughly, and dried with a single use towel. Alcohol-based hand rubs are a good alternative for disinfecting hands if a sink is not available. Hand rubs should be spread over the entire surface of hands, fingers, and wrists until dry, and may be used several times. These rubs can be used repeatedly without skin irritation or loss of effectiveness. Hand rubs are available as a liquid or wipe in small, portable sizes that are easy to carry in a pocket or handbag. When a sink is available, visibly soiled hands should be washed with soap and water. Hands should be washed after coughing, blowing the nose or sneezing. While it is not always possible to limit contact with a person who is sick, avoiding touching the eyes, nose, or mouth after direct contact can help to prevent the spread of infection. In addition, tissues should be used to cover the mouth when sneezing or coughing. These used tissues should be disposed of promptly. Sneezing/coughing into the sleeve of one's clothing (at the inner elbow) is another means of containing sprays of saliva and secretions and has the advantage of not contaminating the hands. WHEN TO SEEK HELP - Parents of a child with throat pain and one or more of the following should contact their healthcare provider immediately: Difficulty swallowing or breathing Excessive drooling in an or young child Temperature ?101 F or 38.3 C Swelling of the neck Child is unable or unwilling to drink or eat Voice sounds muffled Child has a stiff neck or difficulty opening the mouth WHERE TO GET MORE INFORMATION - Your child's healthcare provider is the best source of information for questions and concerns related to your child's medical problem. This article will be updated as needed every four months on our web site ([email or web address]). Information below was obtained from Up to date Last literature review version 19.2: March 2011 This topic last updated: June 27, 2010 documented in this encounter [facility] 09-02-2022 History of Presen t illness Narrative Telemedicine Visit - Distance Health Virtual Visit Note Patient seen on [employer] platform. Location of patient: [place] History of Present Illness Jimena Norwood is a 37 year old year old male who presents for the past 2 days with symptoms that are:gradually worsening. +strep exposure via and dtr had strep last week Sore throat, fever sweating chills headache , 'feel like crud' COVID tested: yes COVID VACCINE: no Symptoms include: See above Oral intake: ok Tobacco use: No Second hand smoke exposure: No Recent exposure to strep:No Sick contacts: yes Recent travel: no OTC meds/remedies that patient has tried: ibuprofen . PAST MEDICAL HISTORY Diagnosis Date Epigastric pain Indigestion Knee pain -right Known medical problems Pes anserinus tendinitis and bursitis Patellar tendonitis - right Pes planus Sprain of interphalangeal joint of finger - right PAST SURGICAL HISTORY Procedure Laterality Date PAST SURGICAL HISTORY OF 08/2010 Oral surgery FAMILY HISTORY Problem Relation Age of Onset other (Diabetes mellitus) Sister other (Diabetes mellitus) Other other (Diabetes mellitus) Other Hyperlipidemia Father Hypertension Father Hyperlipidemia Brother Hypertension Brother Social History Tobacco Use Smoking status: Never Smokeless tobacco: Never Vaping Use Vaping Use: Never used Substance Use Topics Alcohol use: Yes Comment: socially Drug use: No Current Outpatient Medications Medication Sig meloxicam (MOBIC) 15 mg tablet Take 1 tablet by mouth once daily. With food. Dxfwqeweitjtyfo-Xwhttbmgg-GA (BROMFED DM) 2-30-10 mg/5 mL syrup Take 5-10 ml po q6h prn (Patient not taking: Reported on 01/16/2022 ) mupirocin (BACTROBAN) 2 % ointment Apply 1 application to affected area three times daily. Location: left great toe (Patient not taking: Reported on 01/17/2019 ) No current facility-administered medications for this visit. ALLERGIES No Known Allergies Video Exam (Examination performed via Video enabled technology) General appearance Alert, oriented, pleasant, in NAD: Yes Ill appearing: No Lethargic appearing: No HEENT Eyes: Sclera clear :Yes Conjunctiva without erythema :Yes Frontal sinus tenderness by self palpation;Yes Maxillary sinus tenderness by self palpation :No Ears: Tragus / outer ear tenderness by self palpation : caused pt to cough and nauseated Tender cervical adenopathy by self palpation :Yes Oropharynx: moderate erythema and tonsillar hypertrophy, 3+ PULMONARY Respiratory distress: No Coughing noted: Yes Audible wheezing noted: No ======== Centor Criteria - Age (2-14=+1, 15-44=0, >=45 -1): -1 - Tonsillar exudates: 0 - Tender anterior cervical adenopathy: +1 - Fever by history (>38 or 100.4): +1 - Absence of cough: 0 0 points- probability of strep is 1-2.5% 1 point- probability of strep is 5-10% 2 points- probability of strep is 11-17% 3 points- probability of strep is 28-35% 4 points- probability of strep is 51-53% == ASSESSMENT/PLAN: 1. Sore throat - ICD9: 462, ICD10: J02.9 (primary diagnosis) - suspect strep - Discussed supportive care treatment with fluids, rest and analgesia. - The patient may also use warm salt water gargles, throat lozenges and/or OTC throat spray as needed and NSAIDs. - Contagious dz precautions discussed- including considered contagious until on antibiotics for 24 hours - The patient should follow up in 3-5 days if symptoms persist or worsen - STREP A MOLECULAR (POC) 2. Acute pharyngitis, unspecified etiology - ICD9: 462, ICD10: J02.9 -strep testing today at [place] [facility] 3. Strep throat exposure - ICD9: V01.89, ICD10: Z20.818 - Reviewed OTC medications and supplements to help w/ sxs - Encouraged good hydration, handwashing and use of humidified air - Encouraged REST - Red flags discussed for need for in person care - All questions answered Barb Talavera APRN.INTERACTIVE MEDIA MARKETING STRATEGIST If you let us know who your primary care provider is, we will send them a notification of today s visit through our electronic medical records system. Since not all providers have access to our notifications, we strongly encourage you to share the following record of today s visit with your primary care provider at your next visit. This will help in providing you the best care. documented in this encounter [facility] 02-15-2022 Miscellaneous Notes Cortisone injection is not a requirement, but could provide symptom relief. If his preference is to avoid injections for now, I would go with PT and Meloxicam a bit longer. If there comes a time in the future when he wishes to proceed with injection, we can schedule it at that point. Jack Keller DO Await pt response. [place] Ma documented in this encounter [facility] 02-12-2022 History of Presen t illness Narrative Radiology Service Progress Note PATIENT NAME: Jimena Norwood DATE OF SERVICE: February 12, 2022 TIME: 1:49 PM PATIENT IDENTITY VERIFICATION COMPLETED USING TWO (2) IDENTIFIERS: Name and Date of confirmed by patient verbally. FALL SCREENING: Has the patient had 2 falls in the last year or 1 fall with injury or currently using an Ambulatory Assistive Device (Walker, Cane, Wheelchair, Crutches, etc.)? No PATIENT GENDER DATA: Male PATIENT RELEVANT IMPLANT DATA REVIEWED: Yes RADIOLOGY DEPARTMENT: MR; Exam(s) Completed: Lower MSK: Knee, right PERIPHERAL IV DATA: Not applicable SIGNED BY: RT Mane(R) February 12, 2022 1:49 PM documented in this encounter [facility] 02-08-2022 History of Presen t illness Narrative POPULATION HEALTH NAVIGATION OUTREACH Action/FYI No answer, left vm and sent my chart message for pt. to call to schedule orthopedic consult dated Pt identified by name and : YES, via phone Outreach Outcome/Action Unable to reach patient: Left message MyChart message sent Reason for Outreach Care Gap or Scheduling/Wellness visits Payer: Payor: [employer] / Plan: BLUE CARD PPO OOS / Product Type: PPO / Care Gap Reviewed:: ARIK Reminder: Reminder note to check Health Maintenance for items below Health Maintenance items due: COVID-19 VACCINE(1) Never done DEPRESSION SCREENING Never done HEPATITIS C SCREENING Never done HIV SCREENING Never done LIPID SCREEN Never done Message Sent to Practice: No Navigation Signature: Lizzy Campos February 08, 2022 10:19 AM documented in this encounter [facility] Evaluation note Diagnosis Chronic pain of right knee [facility] Diagnosis Sore throat- Primary Acute pharyngitis Acute pharyngitis, unspecified etiology Strep throat exposure Contact with or exposure to other communicable diseases [facility] Diagnosis Sore throat- Primary Acute pharyngitis [facility] Diagnosis Strep throat- Primary Streptococcal sore throat [facility] Diagnosis Acute atopic conjunctivitis of right eye- Primary Acute atopic conjunctivitis Post-nasal drip Postnasal drip Seasonal allergic rhinitis, unspecified trigger [facility] Diagnosis Sore throat- Primary Acute pharyngitis [facility] Diagnosis Acute otitis media, right- Primary Unspecified otitis media documented in this encounter [facility] for visit Narrative* Diagnostic Procedure Only (Urgent) - Closed Specialty Diagnoses / Procedures Referred By Leena pizano Referred To Contact XR IMAGING Diagnoses Chronic pain of right knee Procedures XR KNEE GENERAL 4V AP BOTH/PA BOTH/LAT/MERC RIGHT RADIOLOGIC EXAM KNEE COMPLETE 4/MORE VIEWS Cody Madden APRN.INTERACTIVE MEDIA MARKETING STRATEGIST [address] [place] [address] [place] [address] Referral ID Status Reason Start Date Expiration Date V isits Requested Visits Authorized [id number] Closed Auto-Generate d Referral 01/16/2022 02/15/2023 1 1 [facility] Summary Purpose Family History No Family History Records FoundNo Family History Records Found Advance Directives No Advanced Directives Records FoundNo Advanced Directives Records Found Reason for Referral Specialty Diagnoses / Procedures Referred By Leean t Referred To Contact MR IMAGING Diagnoses Chronic pain of right knee Procedures MRI KNEE WO IVCON RT MRI ANY JT LOWER EXTREM W/O CONTRAST Jack Smith V, DO [address] [place] [address] Mr Imaging Referral ID Status Reason Start Date Expiration Date V isits Requested Visits Authorized [id number] Closed Auto-Generate d Referral 01/24/2022 02/23/2022 1 1 Additional Source Comments (unrecognized sect ion and content) No Status Records FoundNo Status Records Found INFORMATION SOURCE (unrecogn ized section and content) DATE CREATED AUTHOR 05/06/2018 [facility] DATE CREATED AUTHOR AUTHOR'S ORGANIZ ATION 07/29/2023 [facility] Source Comments (unrecognize d section and content) In the event this informatio n is protected by the Federal Confidentiality of Alcohol and Drug Abuse Patient Records regulations: The Federal rules restrict any use of the information to criminally investigate or prosecute any alcohol or drug abuse patient.[facility] the event this information is protected by the Federal Confidentiality of Alcohol and Drug Abuse Patient Records regulations: The Federal rules restrict any use of the information to criminally investigate or prosecute any alcohol or drug abuse patient.[facility] the event this information is protected by the Federal Confidentiality of Alcohol and Drug Abuse Patient Records regulations: The Federal rules restrict any use of the information to criminally investigate or prosecute any alcohol or drug abuse patient.[facility] the event this information is protected by the Federal Confidentiality of Alcohol and Drug Abuse Patient Records regulations: The Federal rules restrict any use of the information to criminally investigate or prosecute any alcohol or drug abuse patient.[facility] the event this information is protected by the Federal Confidentiality of Alcohol and Drug Abuse Patient Records regulations: The Federal rules restrict any use of the information to criminally investigate or prosecute any alcohol or drug abuse patient.[facility] the event this information is protected by the Federal Confidentiality of Alcohol and Drug Abuse Patient Records regulations: The Federal rules restrict any use of the information to criminally investigate or prosecute any alcohol or drug abuse patient.[facility] the event this information is protected by the Federal Confidentiality of Alcohol and Drug Abuse Patient Records regulations: The Federal rules restrict any use of the information to criminally investigate or prosecute any alcohol or drug abuse patient.[facility] the event this information is protected by the Federal Confidentiality of Alcohol and Drug Abuse Patient Records regulations: The Federal rules restrict any use of the information to criminally investigate or prosecute any alcohol or drug abuse patient.[facility] the event this information is protected by the Federal Confidentiality of Alcohol and Drug Abuse Patient Records regulations: The Federal rules restrict any use of the information to criminally investigate or prosecute any alcohol or drug abuse patient.[facility] the event this information is protected by the Federal Confidentiality of Alcohol and Drug Abuse Patient Records regulations: The Federal rules restrict any use of the information to criminally investigate or prosecute any alcohol or drug abuse patient.[facility] Care Teams (unrecognized sec tion and content) Medical Affairs Manager Relationship Specialty Start Date End Date Bere Conrad PCP - General Family Practice 02/28/17 Medical Affairs Manager Relationship Specialty Start Date End Date ShelbyallanBere polk PCP - General Family Practice 02/28/17 Medical Affairs Manager Relationship Specialty Start Date End Date Bere Conrad PCP - General Family Medicine 02/28/17 Medical Affairs Manager Relationship Specialty Start Date End Date Bere Conrad PCP - General Family Medicine 02/28/17 Medical Affairs Manager Relationship Specialty Start Date End Date Bere Conrad PCP - General Family Medicine 02/28/17 Medical Affairs Manager Relationship Specialty Start Date End Date ShelbyallanBere polk PCP - General Family Medicine 02/28/17 Medical Affairs Manager Relationship Specialty Start Date End Date Bere Conrad PCP - General Family Medicine 02/28/17 Medical Affairs Manager Relationship Specialty Start Date End Date Bere Conrad PCP - General Family Medicine 02/28/17 Reason for Visit (unrecogniz ed section and content) Specialty Diagnoses / Procedures Referred By Leena t Referred To Contact MR IMAGING Diagnoses Chronic pain of right knee Procedures MRI KNEE WO IVCON RT MRI ANY JT LOWER EXTREM W/O CONTRAST Jack Smith V, DO [address] [place] [address] Mr Imaging Referral ID Status Reason Start Date Expiration Date V isits Requested Visits Authorized [id number] Closed Auto-Generate d Referral 01/24/2022 02/23/2022 1 1 Reason Comments Sore Throat Reason Comments Conjunctivitis Right eye possible p ink eye x 1.5 weeks Reason Comments Sore Throat ST and bodyaches x 1 day Reason Comments Ear Pain Right ear pain x 4 d ays FOR RECORDS PERTAINING TO PATIENTS WHO ARE OR HAVE BEEN ENROLLED IN A CHEMICAL DEPENDENCY/SUBSTANCEABUSE PROGRAM, SOME INFORMATION MAY BE OMITTED. This clinical summary was aggregated from multiple sources. Caution should be exercised in using it in the provision of clinical care. This summary normalizes information from multiple sources, and as a consequence, information in this document may materially change the coding, format and clinical context of patient data. In addition, data may be omitted in some cases. CLINICAL DECISIONS SHOULD BE BASED ON THE PRIMARY CLINICAL RECORDS. [facility]. provides no warranty or guarantee of the accuracy or completeness of information in this document.
--- NOTE | 2024-09-11 22:50 | CT_ITS ---
INDICATION: RUQ pain EXAMINATION: CT Abdomen And Pelvis W/ Contrast Injection TECHNIQUE: Helically acquired images were obtained of the abdomen and pelvis with sagittal and coronal reconstructed images. Individualized dose optimization techniques were used for this CT. IV contrast dosage and agent: 100 mL of Isovue-370. Oral contrast: None. COMPARISON: 12/24/2022 CT. FINDINGS: VESSELS: No abdominal aortic aneurysm or dissection. LIVER: No evidence of a mass. No intrahepatic or extrahepatic biliary duct dilation. GALLBLADDER: No calcified stones. Questionable small amount of sludge. No evidence of cholecystitis. PANCREAS: No focal solid or cystic mass. No evidence of pancreatitis. SPLEEN: Normal. ADRENAL GLANDS: Normal. KIDNEYS AND URETERS: No urinary tract stone. No hydronephrosis or hydroureter. No significant asymmetric perinephric stranding. URINARY BLADDER: Unremarkable. BOWEL: No evidence of diverticulosis or diverticulitis. Appendix appears normal. No evidence of bowel obstruction. REPRODUCTIVE ORGANS: No evidence of a pelvic mass. PERITONEUM: No intraabdominal free fluid or free air. LYMPH NODES: No pathologically enlarged mesenteric or retroperitoneal lymph nodes. ABDOMINAL WALL: No abdominal or pelvic wall hernia. BONES: No acute abnormality. LOWER CHEST: Visualized lung bases are unremarkable. CT/Abdomen/Pelvis W IV Cont ONLY IMPRESSION: 1. No acute abnormality. 2. Small amount of sludge in the gallbladder with no evidence of cholecystitis. Electronically Signed: Jay Hummel DO at 0:00 EDT ,
[2024-09-11] MEDS: 0.9% Normal Saline (1000mL) 1,000 ML 999 ML IV (22:56)
[2024-09-11] MEDS: HYDROmorphone 1 MG/ML Syringe IV ×2 (22:57→23:46)
[2024-09-11] MEDS: Ondansetron 4 MG/2 ML Vial IV (22:57)
[2024-09-11 22:59] LABS: Absolute Lymphocyte Count 3.34 X10^3/uL (0.83-4.51); Absolute Neutrophil Count 4.1 X10^3/uL (2.0-7.7); Basophil# 0.06 X10^3/uL; Basophil% 0.7 % (0-1); Eosinophil# 0.16 X10^3/uL; Eosinophils% 1.9 % (0-5); Hemoglobin 15.8 g/dL (13.0-16.5); Lymphocyte # 3.34 X10^3/ul (0.83-4.51); Mean Corp Hgb Conc 34.3 g/dL (32-36); Mean Corpuscular Hgb 29.2 pg (27.0-32.0); Mean Corpuscular Volume 84.9 fL (80-94); Monocyte# 0.87 X10^3/uL; Monocyte% 10.2 % (0-10); NRBC Flagged by Analyzer 0 % (0-5); Neutrophil % 47.7 % (47-70); Platelet Count 297 K/mm3 (150-450); RBC Distribution Width CV 12.1 % (11.6-14.6); RBC Distribution Width SD 36.4 fl (35.1-43.9); Red Blood Count 5.42 M/mm3 (4.6-6.2); White Blood Count 8.6 K/mm3 (4.4-11.0)
[2024-09-11 23:12] LABS: AST(SGOT) 22 U/L (15-37); Alanine Aminotransfer ALT/SGPT 53 U/L (16-61); Albumin, Serum 4.3 g/dL (3.2-5.0); Alkaline Phosphatase 86 U/L (45-117); Anion Gap 5 (5-15); BUN 12 mg/dL (7-18); BUN/Creat Ratio 10.8 RATIO (10-20); Bilirubin, Direct 0.29 mg/dL (0.00-0.30); Chloride 106 mmol/L (98-107); Creatinine, Serum 1.11 mg/dL (0.70-1.30); EST Glomerular Filtration Rate 79 mL/min (>60); Est Glom Filt Rate - Afr Amer 96 mL/min (>60); Estimated Creatinine Clearance 119.28 ml/min; Globulin 3.4 g/dL (2.2-4.2); Glucose 113 mg/dL (74-106); Lipase 65 U/L (13-75); Potassium 3.4 mmol/L (3.5-5.1); Protein, Total 7.7 g/dL (6.4-8.2); Sodium Level 141 mmol/L (136-145)
[2024-09-12] VITALS (10 sets, daily range): BP systolic 128–162; BP diastolic 86–102; PULSE 66–98; RESP 16–18; TEMP 36.7–36.8; O2SAT 95–99; BMI 40.0
--- NOTE | 2024-09-12 01:09 | US_ITS ---
INDICATION: RUQ pain EXAMINATION: Ultrasound US Abdomen RUQ (limited) TECHNIQUE: Vidal scale and color doppler imaging was performed of the right upper quadrant. COMPARISON: 09/11/2024 CT. FINDINGS: LIVER: Diffuse increased echogenicity. Hepatomegaly with the right lobe length measuring 18.2 cm. Normal echotexture. No evidence of a mass. No intrahepatic duct dilation. GALLBLADDER: Moderately distended. Multiple small stones and sludge are present. Normal wall thickness. No pericholecystic fluid. Negative sonographic Liang''s sign. COMMON BILE DUCT: Normal measuring 4 mm in diameter. PANCREAS: Not well-visualized due to overlying bowel gas. RIGHT KIDNEY: Unremarkable. FREE FLUID: No free fluid in the right upper quadrant. US/Gallbladder IMPRESSION: 1. Cholelithiasis with no evidence of cholecystitis. 2. Fatty infiltration of the liver and hepatomegaly. Electronically Signed: Jay Hummel DO at 3:33 EST ,
[2024-09-12] MEDS: oxyCODONE 5 MG Tablet PO (01:14)
[2024-09-12] MEDS: fentaNYL 100 MCG/2 ML Ampul IV ×2 (01:14→01:22)
[2024-09-12] MEDS: fentaNYL 100 MCG/2 ML Ampul 50 MCG IV (02:55)
--- NOTE | 2024-09-12 03:29 | EDS_ITS ---
HPI History of Present Illness Chief Complaint: Abd Pain Informant: patient and spouse/S.O. Narrative Narrative: Patient is a 39-year-old male with past medical history of GERD. He states it was his 's birthday today and they went out and had dinner for which he ate an [place]ag[place] sub. He states this was followed by cake and ice cream. He states he was doing well and was laying down for bed and was awoken with pain in the upper abdomen with bouts of nausea. He denies any loose stool diarrhea or fever. However he tried [id number] medication without any symptom improvement and therefore presents for evaluation [facility] Medical History Kidney stones Gastric reflux Non-smoker Home Medications ?Medication ?Instructions ?Recorded ?Last Taken ?Type pantoprazole 40 mg tablet,delayed 40 mg PO DAILY #30 TABLETS 07/02/24 09/11/24 Rx release Allergy/AdvReac Type Severity Reaction Status Date / Time No Known Allergies Allergy Verified 09/11/24 22:17 Surgical History (Updated 02/24/23 @ 15:44 by Fawn Martinez) Hx of wisdom tooth extraction Social History Smoking Status: Never smoker ROS ROS ED Constitutional Constitutional ED: Denies chills or fever(s) Eyes Eyes: Denies change in vision ENT ENT ED: Denies sore throat Cardiovascular Cardiovascular: Denies chest pain Respiratory/Chest Respiratory/Chest: Denies cough or dyspnea Gastrointestinal Gastrointestinal: Reports abdominal pain and nausea; Denies diarrhea or vomiting Genitourinary Genitourinary ED: Denies dysuria or hematuria Musculoskeletal Musculoskeletal: Denies myalgias Integumentary Denies rash Neurologic Neurologic: Denies headache(s) Hematologic/Lymphatic Hematologic/Lymphatic: Denies easy bleeding or easy bruising EXAM Physical Exam Const Vital Signs: 09/11/24 22:17 09/12/24 00:24 09/12/24 01:18 EDT Temperature 97.9 F Temperature Source Temporal Pulse Rate 72 66 82 Respiratory Rate 18 16 16 Blood Pressure 187/127 H 162/98 H 145/102 H Blood Pressure Mean 147 119 116 Pulse Ox 98 98 98 Oxygen Delivery Method Room Air Room Air Room Air 09/12/24 01:00 EST 09/12/24 02:57 09/12/24 05:00 Temperature Temperature Source Pulse Rate 84 70 71 Respiratory Rate 16 16 16 Blood Pressure 132/91 H 148/90 H 143/100 H Blood Pressure Mean 104 109 114 Pulse Ox 98 98 98 Oxygen Delivery Method Room Air Room Air Room Air Positive well nourished, well developed and obese General Appearance ED: well developed; Negative for pallor Nutritional Appearance: obese HEENT Reports moist mucous membranes HEENT Narrative: No tongue or lip swelling no oral lesions no airway edema or compromise No signs of infection noted in the posterior pharynx Eyes PERRL and EOMs intact bilaterally General Eye ED: Negative for scleral icterus Neck supple Neck Narrative: No nuchal rigidity or meningeal signs Chest Wall palpation of chest normal Resp normal respiratory effort and clear to auscultation bilaterally Cardio regular rate and regular rhythm Rate: other Other Details: Regular rate and rhythm without murmurs rubs or gallops Radial and carotid pulses are equal and symmetric GI non-distended and no masses GI Narrative: Abdomen is soft and nondistended with normal active bowel sounds. Patient has pain with palpation in the midepigastric and right upper quadrant regions. No voluntary guarding or rigidity or pulsatile mass. Negative Liang sign Auscultation: normoactive bowel sounds Palpation: soft Back/Spine no CVA tenderness Extremity normal to inspection Neuro oriented x3, CN's II-XII intact bilaterally and no sensory deficits noted Sensorium / Orientation: alert Motor Exam: strength 5/5 throughout Psych mental status grossly normal Skin no rashes or lesions noted and no wounds General Skin Exam: Negative for jaundice or pallor MDM MDM MDM Narrative Medical decision making narrative: Patient arrived to ER hypertensive but otherwise with stable vitals. Based on his report of eating an [place]agasy subsandwich as well as ice cream and cake and then developing spontaneous pain mainly in the right upper quadrant there is concern for biliary colic versus acute cholecystitis versus pancreatitis versus GERD exacerbation. Secondary to his symptoms basic labs were obtained as well as a CT scan with IV contrast. Labs revealed no clinically significant findings. CT scan showed sludge consistent with patient's report of pain but no signs of acute cholecystitis. The patient was requiring multiple doses of narcotic pain medication which are only lasting an hour to an hour and a half before his report of returning pain. Even though his liver enzymes are normal he does not have fever or leukocytosis or left shift and the CT scan does not reveal findings for acute cholecystitis was concern for this based on his recurrent pain and therefore an ultrasound of the gallbladder was obtained. Ultrasound confirmed sludge and small stones but no signs of acute cholecystitis. Despite this confirmation finding he was having recurrent pain and therefore the general surgeon Dr. Horowitz was contacted. She reviewed the CT scan and ultrasound and agree with the radiologist. With his history of GERD she recommends IV Protonix and a GI cocktail. This was given to the patient and we waited 1 hour to see if this would help reduce symptoms. Despite receiving this he called out 3 times during the course of that hour for persistent pain. Therefore Dr. Horowitz was contacted once again and based on his CT and ultrasound and recurrent pain she will admit the patient for further care. History & Record Review Discussion w/independent historian: Patient and Significant other Lab Data Attestation: I reviewed the patient's lab results. Labs: Laboratory Results - last 24 hr 09/11/24 22:30 WBC 8.6 RBC 5.42 Hgb 15.8 Hct 46.0 MCV 84.9 MCH 29.2 MCHC 34.3 RDW Std Deviation 36.4 RDW Coeff of Brad 12.1 Plt Count 297 MPV 11.0 Immature Gran % (Auto) 0.500 Neut % (Auto) 47.7 Lymph % (Auto) 39.0 [place] % (Auto) 10.2 H Eos % (Auto) 1.9 Baso % (Auto) 0.7 Absolute Neuts (auto) 4.1 Absolute Lymphs (auto) 3.34 Nucleated RBC % 0 Sodium 141 Potassium 3.4 L Chloride 106 Carbon Dioxide 30.0 Anion Gap 5 BUN 12 Creatinine 1.11 Estim Creat Clear Calc 119.28 Est GFR (MDRD) Af Amer 96 Est GFR (MDRD) Non-Af 79 BUN/Creatinine Ratio 10.8 Glucose 113 H Calcium 9.0 Total Bilirubin 1.40 H Direct Bilirubin 0.29 AST 22 ALT 53 Alkaline Phosphatase 86 Total Protein 7.7 Albumin 4.3 Globulin 3.4 Lipase 65 Radiography Diagnostic Testing: Clinical Impression(s) from Imaging Studies Abdomen/Pelvis CT 09/11/24 22:50 IMPRESSION: 1. No acute abnormality. 2. Small amount of sludge in the gallbladder with no evidence of cholecystitis. Electronically Signed: Jay Hummel DO at 0:00 EDT , Gallbladder Ultrasound 09/12/24 01:09 EST IMPRESSION: 1. Cholelithiasis with no evidence of cholecystitis. 2. Fatty infiltration of the liver and hepatomegaly. Electronically Signed: Jay Hummel DO at 3:33 EST , Management Discussion w/another healthcare provider: [employer] Apprentice Discharge Plan Dx/Rx/DC Orders Clinical Impression: Cholelithiasis, Biliary colic, Intractable abdominal pain, GERD (gastroesophageal reflux disease) Disposition Disposition: Acute Care Hospital [facility] Discharge Date/Time: 09/12/24 05:50
[2024-09-12] MEDS: DiphenhydrAMINE 50 MG/ML Syringe 25 MG IV (03:34)
[2024-09-12] MEDS: Haloperidol Lactate 5 MG/ML Vial IV (03:35)
[2024-09-12] MEDS: Lidocaine 2% Viscous15 ML UDC 15 ML PO (04:08)
[2024-09-12] MEDS: Mag Hydrox/Al Hydrox/Simeth 30 ML UDC PO (04:08)
[2024-09-12] MEDS: Pantoprazole Sodium 40 MG in 0.9% Normal Saline (100mL MB+) 100 ML 330 MG IV ×2 (04:09→21:26)
[2024-09-12] MEDS: Ketorolac 30 MG/ML Syringe IV (05:28)
--- OUTSIDE RECORDS SUMMARY | 2024-09-12 05:32 | XMS RPT_ITS | CCD ---
Author Organization [facility] Care Team Providers Care Field Support Rep Name Role Phone BERE CONRAD Unavailable Unavailable JUAN JOSÉI, ALEXELIDIA Unavailable Unavailable NO REFERRING DR Unavailable Unavailable Juan Joséi Alexelidia Primary Care Provider Juan JoséiBere Primary Care Provider [phone] LiscathyskiJimenaia Primary Care Provider LISZECHARIAHI, ALEXIA Primary Care Unavailable BARB TALAVERA Attending Unavailable LISRICKEYEVLUCYI, BERE Primary Care Unavailable LISRICKEYEVLUCYI, ALEXIA Primary Care Unavailable LISRICKEYEVSKI, ALEXIA Primary Care Unavailable LISZECHARIAHI, ALEXIA Primary Care Unavailable Juan Joséi Alexia Primary Care Provider [phone] Medications Current Medications Medication Drug Class(es) Dates [...] oral solution (10 sources) alpha-Adrenergic Agonist, Uncompetitive F-zddjdc-D-aspartate Receptor Antagonist, Sigma-1 Agonist Start: 02-08-20 19 [...] CN Office Visit ([facility] ) ANAYELIJIMENA WEBER ([id number]) 1985 M Date Time Provider Department 07/28/23 10:45 AM TAMARA WYNNE [facility] During your visit today, we recorded the [...] Patient agreeable to treatment plan. Tamara Wynne APRN.SCREEN PRINTING PRESS OPERATOR Allergies As of Date: 07/28/2023 (No Known [...] Encounter Status:Closed by TAMARA WYNNE on 07/28/23 [facility] Atilio 03-25-2023 CNOV Office Visit ([facility] ) JIMENA NORWOOD ([id number]) 1985 M Date Time Provider Department 03/25/23 11:15 AM JASMYNE KEMP [facility] During your visit today, we recorded the following information about you: Temperature Pulse Respiration Blood pressure 97.1 degrees 78/minute 16/minute 122/80 Weight 122.1 kg Jasmyne Kemp APRN.SCREEN PRINTING PRESS OPERATOR 03/25/2023 11:39 AM Signed Subjective Sore Throat [...] Discussed expected course of illness Jasmyne Kemp APRN.SCREEN PRINTING PRESS OPERATOR SORE THROAT INSTRUCTIONS SORE THROAT OVERVIEW - Sore throat is a common problem during childhood, and is usually the result of a bacterial or viral infection. Although sore throat usually r (more content not included)... Normal [facility] STREP A MOLECULAR (POC)on Procedural Control Valid [facility] Strep A (POCT) Negative Negative [facility] CNOVon 12-23-2022 CNOV Office Visit ([facility] ) JIMENA NORWOOD ([id number]) 1985 M Date Time Provider Department 12/23/22 10:00 AM JASMYNE KEMP [facility] During your visit today, we recorded the following information about you: Temperature Pulse Respiration Blood pressure 97.7 degrees 75/minute 23/minute 122/76 Weight 120.5 kg Angelique Guzman 12/23/2022 11:22 AM Signed This note was created using Amplifinityriter. Subjective Jimena Norwood is a 37 year [...] or if symptoms persist. - Patient to picket labor union over the counter Oral Antihistamine (Zyrtec or Claritin) and take one pill, once a day. Follow package instructions. Also to picket labor union over the counter Antihistamine Eye drops (Pataday or Zaditor) one drop in each eye. Follow package instructions -Patient to return if new vision changes, sensation of something being in the eye, eye redness worsens, or eye pain develops. 2. Post-nasal drip - ICD9: 784.91, ICD10: R09.82 - Patient to picket labor union OTC Flonase (Fluticasone) and use once a day, two sprays in each nostril and rinse (more content not included)... [facility] Nurse Visit ([facility]) JIMENA NORWOOD ([id number]) 1985 M Date Time Provider Department 09/02/22 3:00 PM NURSE [facility] During your visit today, we recorded the following information about you: Gerardo Zeng MA 09/02/2022 2:51 PM Signed Patient strep test Positive, VV provider to treat. Gerardo Zeng MA Referring Provider: SELF [[id number]] Allergies As of Date: 09/02/2022 (No Known Allergies) Date Reviewed: 09/02/2022 Reviewed by: Barb Talavera APRN.SCREEN PRINTING PRESS OPERATOR - Fully Assessed Primary Visit Diagnosis:Sore throat [...] Status:Closed by GERARDO ZENG on 09/02/22 Normal [facility] MRI KNEE WO IVCON RTon 02-12 [facility] XR Knee - right 4 Viewson IMPRESSION: Normal Commercial Litigation Associate: PSCB Transcribe Date/Time: Jan 16 2022 7:42P Dictated by : SHERRELL JOHNSTON MD This examination was interpreted and the report reviewed and electronically signed by: SHERRELL JOHNSTON MD on Jan 16 2022 7:42PM [facility] DIVISION OF RADIOLOGY * * [...] No interval change. DIVISION OF RADIOLOGY Provider, [facility] - 01/16/2022 * * *Final Report* [...] effusion. No interval change. IMPRESSION IMPRESSION: Normal Commercial Litigation Associate: PSCElvin Transcribe Date/Time: Jan 16 2022 7:42P Dictated by : SHERRELL JOHNSTON MD This examination was interpreted and the report reviewed and electronically signed by: SHERRELL JOHNSTON MD on Jan 16 2022 7:42PM EST [facility] Radiology Study observation (narrative) [facility] XR Knee - right 4 ViewsOrder ed By: Cczofia Provider on 01-16-2022 [facility] Vital Signs Date Time Vital Sign Value Performing Clinician Angely walton 07-28-2023 10:45-0400 Body temperature 96.91 [degF] Tamara Wynne APRN.SCREEN PRINTING PRESS OPERATOR Work Phone: [facility] 07-28-2023 10:45-0400 Body weight 119.02 kg Tamara Wynne APRN.SCREEN PRINTING PRESS OPERATOR Work Phone: [facility] 07-28-2023 10:45-0400 Diastolic blood pressure 76 mm[Hg] Tamara Wynne APRN.SCREEN PRINTING PRESS OPERATOR Work Phone: [facility] 07-28-2023 10:45-0400 Heart rate 80 /min Tamara Wynne APRN.SCREEN PRINTING PRESS OPERATOR Work Phone: [facility] 07-28-2023 10:45-0400 Respiratory rate 20 /min Tamara Wynne APRN.SCREEN PRINTING PRESS OPERATOR Work Phone: [facility] 07-28-2023 10:45-0400 SaO2% (BldA) [Mass fraction] 100 % Tamara Wynne APRN.SCREEN PRINTING PRESS OPERATOR Work Phone: [facility] 07-28-2023 10:45-0400 Systolic blood pressure 122 mm[Hg] Tamara Wynne APRN.SCREEN PRINTING PRESS OPERATOR Work Phone: [facility] 03-25-2023 11:18-0400 Body temperature 97.11 [degF] Jasmyne Praisler-Wood PROCESS CONTROL SPECIALIST.SCREEN PRINTING PRESS OPERATOR Work Phone: [facility] 03-25-2023 11:18-0400 Body weight 122.11 kg Jasmyne Praisler-Wood PROCESS CONTROL SPECIALIST.SCREEN PRINTING PRESS OPERATOR Work Phone: [facility] 03-25-2023 11:18-0400 Diastolic blood pressure 80 mm[Hg] Jasmyne Praisler-Wood PROCESS CONTROL SPECIALIST.SCREEN PRINTING PRESS OPERATOR Work Phone: [facility] 03-25-2023 11:18-0400 Heart rate 78 /min Jasmyne Praisler-Wood PROCESS CONTROL SPECIALIST.SCREEN PRINTING PRESS OPERATOR Work Phone: [facility] 03-25-2023 11:18-0400 Respiratory rate 16 /min Jasmyne Praisler-Wood PROCESS CONTROL SPECIALIST.SCREEN PRINTING PRESS OPERATOR Work Phone: [facility] 03-25-2023 11:18-0400 SaO2% (BldA) [Mass fraction] 96 % Jasmyne Praisler-Wood PROCESS CONTROL SPECIALIST.SCREEN PRINTING PRESS OPERATOR Work Phone: [facility] 03-25-2023 11:18-0400 Systolic blood pressure 122 mm[Hg] Jasmyne Praisler-Wood PROCESS CONTROL SPECIALIST.SCREEN PRINTING PRESS OPERATOR Work Phone: [facility] 12-23-2022 10:17-0500 Body temperature 97.7 [degF] Jasmyne Praisler-Wood PROCESS CONTROL SPECIALIST.SCREEN PRINTING PRESS OPERATOR Work Phone: [facility] 12-23-2022 10:17-0500 Body weight 120.47 kg Jasmyne Praisler-Wood PROCESS CONTROL SPECIALIST.SCREEN PRINTING PRESS OPERATOR Work Phone: [facility] 12-23-2022 10:17-0500 Diastolic blood pressure 76 mm[Hg] Jasmyne Praisler-Wood PROCESS CONTROL SPECIALIST.SCREEN PRINTING PRESS OPERATOR Work Phone: [facility] 12-23-2022 10:17-0500 Heart rate 75 /min Jasmyne Praisler-Wood PROCESS CONTROL SPECIALIST.SCREEN PRINTING PRESS OPERATOR Work Phone: [facility] 12-23-2022 10:17-0500 Respiratory rate 23 /min Jasmyne Praisler-Wood PROCESS CONTROL SPECIALIST.SCREEN PRINTING PRESS OPERATOR Work Phone: [facility] 12-23-2022 10:17-0500 SaO2% (BldA) [Mass fraction] 98 % Jasmyne Kemp APRN.SCREEN PRINTING PRESS OPERATOR Work Phone: [facility] 12-23-2022 10:17-0500 Systolic blood pressure 122 mm[Hg] Jasmyne Kemp APRN.SCREEN PRINTING PRESS OPERATOR Work Phone: [facility] Encounters Encounter Date Encounter Type Care Provider Facility Start: 07-28-2023 End: 07-28-2023 [facility] Facility:[facility] Start: 07-28-2023 End: 07-28-2023 Patient encounter procedure Tamara Wynne APRN.SCREEN PRINTING PRESS OPERATOR Work Phone: [facility] Comment on above: Acute otitis media, right (Primary Dx) Start: 03-25-2023 End: 03-25-2023 [facility] Facility:[facility] Start: 03-25-2023 End: 03-25-2023 Patient encounter procedure Jasmyne Kemp APRN.SCREEN PRINTING PRESS OPERATOR Work Phone: [facility] Comment on above: Sore throat (Primary Dx) Start: 12-23-2022 End: 12-23-2022 [facility] Facility:[facility] Start: 12-23-2022 End: 12-23-2022 Patient encounter procedure Jasmyne Kemp APRN.SCREEN PRINTING PRESS OPERATOR Work Phone: [facility] Comment on above: Acute atopic conjunc tivitis of right eye (Primary Dx); Post-nasal drip; Seasonal allergic rhinitis, unspecified trigger Start: 09-02-2022 End: 09-02-2022 ambulatory [facility] Facility:[facility] Start: 09-02-2022 End: 09-02-2022 Nursing evaluation of patient and report [facility] Work Phone: [facility] Comment on above: Sore throat (Primary Dx) Start: 09-02-2022 End: 09-02-2022 ambulatory Barb Talavera MARK Work Phone: Telemedicine Comment on above: Sore throat (Primary Dx); Acute pharyngitis, unspecified etiology; Strep throat exposure strep Start: 09-02-2022 E-mail encounter fro baudilio caregiver Barb Talavera MARK Work Phone: [facility] Start: 09-02-2022 End: 09-02-2022 Telemedicine consultation with patient Barb Talavrea DAWOOD.SHANNAN Work Phone: [facility] Start: 02-14-2022 ambulatory Jack Ely O Work Phone: [facility] Comment on above: Question regarding M RI KNEE WO IVCON RT Start: 02-12-2022 End: 02-12-2022 Subsequent hospital visit by physician Mri Radio [facility] (I-Stat/1.5t) Work Phone: Radiology Comment on above: Chronic pain of righ t knee [M25.561, G89.29] Start: 02-08-2022 ambulatory Nopcp (Historical) [facility] Start: 01-16-2022 End: 01-16-2022 Subsequent hospital visit by physician Xr [facility] Work Phone: Radiology Comment on above: Chronic pain of righ t knee [M25.561, G89.29] Start: 02-20-2017 End: 02-21-2017 Ambulatory BERE CONRAD Facility:[facility] Procedures Date Procedure Procedure Detail Performing Clinician Start: 03-25-2023 STREP A MOLECULAR (POC) Jasmyne Kemp APRN.CNP Work Phone: Start: 02-12-2022 Mri any jt lower ext rem w/o contrast matrl Jack Keller DO Work Phone: Start: 01-16-2022 Radiologic exam knee complete 4/more views Cody Madden APRN.CNP Work Phone: Plan of Treatment Date Care Activity Detail Author Start: 10-06-2028 Urine microalbumin profile [facility] Start: 07-11-2024 Covid-19 Vaccine ( season) Covid-19 Vaccine ( season) [facility] Start: 07-11-2024 Influenza vaccination Influenza Vacc ine (#1) [facility] Start: 07-11-2023 Influenza vaccination [facility] Start: 11-10-2022 DEPRESSION ASSESSMENT DEPRESSION ASS [facility] Start: 07-11-2022 Influenza vaccination [facility] Start: 2022 Lipid 1996 panel - Serum or Plasma Lipid Screening [facility] Start: 2022 Lipid panel Lipid Screening [facility] Start: 2022 LIPID SCREEN LIPID SCREEN [facility] Start: 11-10-2021 DEPRESSION ASSESSMENT DEPRESSION ASS [facility] Start: 2006 Hepatitis B Vaccine (1 of 3 - 19+ 3-dose series) Hepatitis B Vaccine (1 of 3 - 19+ 3-dose series) [facility] Start: 2005 Anxiety Screening Anxiety Screening [facility] Start: 2005 Depression Screening Depression Scre ening [facility] Start: 2005 HEPATITIS C SCREENING HEPATITIS C [facility] Start: 2005 Hepatitis C screening Hepatitis C [facility] Start: 2005 HIV SCREENING HIV SCREENING [facility] Start: 2005 HIV screening HIV Screening [facility] Start: 1999 Adult depression screening assessment DEPRESSION SCREENING [facility] Start: 1992 COVID-19 VACCINE (1) COVID-19 VACCIN E (1) [facility] Start: 1987 COVID-19 VACCINE (#1) COVID-19 VACCI NE (#1) [facility] Start: 1987 HEPATITIS B (1 of 3 - 3-dose series) HEPATITIS B (1 of 3 - 3-dose series) [facility] Start: 1987 Hepatitis B Vaccine (1 of 3 - 3-dose series) Hepatitis B Vaccine (1 of 3 - 3-dose series) [facility] STREP A MOLECULAR (POC) STREP A MOLECULAR (POC) Microbiology Routine Sore throat Ordered: 09/02/2022 [facility] Work Phone: Comment on above: Ordered: 09/02/2022 [facility] Immun[facility] Immunization Date Immunization Notes Care Provider Haider woods 10-06-2018 tetanus toxoid, redu cyndi diphtheria toxoid, and acellular pertussis vaccine, adsorbed Nopcp (Historical) [facility] Work Phone: Payers Date Payer Category Payer Unknown [id number] 2018 Unknown [employer] PPO OOS [id number] 2018-Present [phone] [address] [place] [address] PPO [id number] 2018 Unknown [employer] C[employer] PPO OOS [id number] 2018-Present [phone] [address] [place] [address] PPO [id number] Social History Date Type Detail Facility Start: 05-24-2014 End: 07-31-2016 Tobacco smoking status NHIS Never smoked tobacco [facility] Work Phone: Start: 05-24-2014 End: 07-31-2016 Tobacco use and exposure Smokeless tobacco non-user [facility] Work Phone: Start: 01-16-2022 End: 01-23-2022 Alcohol intake Current drinker of alcohol (finding) [facility] Start: 07-31-2016 History SDOH Alcohol Comment socially [facility] Start: 1985 Sex Assigned At Not on file [facility] Start: 12-17-2021 End: 09-02-2022 Exposure to SARS-CoV-2 (event) Not sure [facility] Start: 10-18-2020 End: 07-28-2023 History of Social function [facility] Start: 10-18-2020 End: 07-28-2023 Tobacco use panel [facility] National Score (1-100), lower number is lower risk Not on file [facility] Start: 01-17-2022 Gender identity Identifies as male gender (finding) [facility] Clinical Notes 02-08-2022 to 07-28-2023 Tamara Wynne APRN.SCREEN PRINTING PRESS OPERATOR - 07/28/2023 10:48 AM EDTPatient Titi Kemp APRN.CNP - 03/25/2023 11:22 AM EDTPatient InstructionsAngelique Guzman - 12/23/2022 10:26 AM EST Note Date & Type Note Facility 07-28-2023 Note HNO ID: [id number] Author: Tamara Wynne APRN.SCREEN PRINTING PRESS OPERATOR Service: ? Author Type: Nurse Practitioner Type: [...] food. (Patient not taking: Reported on 12/23/2022) Tngeguzknuytsrx-Zohrmtibr-BD (BROMFED DM) 2-30-10 mg/5 mL syrup Take [...] Patient agreeable to treatment plan. Tamara Wynne APRN.[facility] 07-28-2023 History of Presen t illness [...] food. (Patient not taking: Reported on 12/23/2022) Lwoiaguicfnhuhe-Qushiajaf-IX (BROMFED DM) 2-30-10 mg/5 mL syrup Take [...] Tamara Wynne APRN.SHANNAN documented in this encounter [facility] 03-25-2023 Note HNO ID: [id number] Author: Jasmyne Kemp APRN.SHANNAN Service: ? Author [...] food. (Patient not taking: Reported on 12/23/2022) Dpgszdqrxqwogad-Cmnitxzcf-SP (BROMFED DM) 2-30-10 mg/5 mL syrup Take [...] expected course of illness Jasmyne Kemp APRN.CNP [facility] 03-25-2023 Instructions Jasmyne Kemp APRN.CNP - [...] Discussed expected course of illness Jasmyne Kemp APRN.SCREEN PRINTING PRESS OPERATOR SORE THROAT INSTRUCTIONS SORE THROAT OVERVIEW - [...] mouth and then touches another person directly (mumo-cp-kdep contact) or indirectly (tglt-zj-ksmune, such as doorknob, telephone, toys). It is [...] every four months on our web site (www.[employer]/patients). Information below was obtained from Up to date Last literature review version 19.2: March 2011 This topic last updated: June 27, 2010 documented in this encounter [facility] 03-25-2023 History of Presen t illness [...] food. (Patient not taking: Reported on 12/23/2022) Lrgnaacgkscoihz-Hnmrdxpje-JQ (BROMFED DM) 2-30-10 mg/5 mL syrup Take [...] Discussed expected course of illness Jasmyne Kemp APRN.SCREEN PRINTING PRESS OPERATOR documented in this encounter [facility] 12-23-2022 Note HNO ID: [id number] Author: Angelique Guzman Service: ? Author Type: ? Type: Progress Notes Filed: 12/23/2022 11:22 AM Note Text: This note was created using Yebhi. Subjective Jimena Norwood is a 37 year [...] food. (Patient not taking: Reported on 12/23/2022) Pgoludasdmwssdh-Teqpwdyxu-JK (BROMFED DM) 2-30-10 mg/5 mL syrup Take [...] or if symptoms persist. - Patient to picket labor union over the counter Oral Antihistamine (Zyrtec or Claritin) and take one pill, once a day. Follow package instructions. Also to picket labor union over the counter Antihistamine Eye drops (Pataday or Zaditor) one drop in each eye. Follow package instructions -Patient to return if new vision changes, sensation of something being in the eye, eye redness worsens, or eye pain develops. 2. Post-nasal drip - ICD9: 784.91, ICD10: R09.82 - Patient to picket labor union OTC Flonase (Fluticasone) and use once a day, two sprays in each nostril and rinse mouth after. Discussed proper administration. - Also to picket labor union OTC Oral Antihistamine (Zyrtec or Claritin) one pill, once a day. Follow package instructions. 3. Seasonal allergic rhinitis, unspecified trigger - ICD9: 477.9, ICD10: J30.2 - See interventions above. Angelique Guzman APRN-student [facility] 12-23-2022 Instructions Angelique Guzman - 12/23/2022 11:04 AM EST ASSESSMENT/PLAN: 1. Acute atopic conjunctivitis of right eye - ICD9: 372.05, ICD10: H10.11 (primary diagnosis) Allergic - Instructed to call if high fever, development of periorbital redness or swelling, eye pain, visual changes, concerns or if symptoms persist. - Patient to picket labor union over the counter Oral Antihistamine (Zyrtec or Claritin) and take one pill, once a day. Follow package instructions. Also to picket labor union over the counter Antihistamine Eye drops (Pataday or Zaditor) one drop in each eye. Follow package instructions -Patient to return if new vision changes, sensation of something being in the eye, eye redness worsens, or eye pain develops. 2. Post-nasal drip - ICD9: 784.91, ICD10: R09.82 - Patient to picket labor union OTC Flonase (Fluticasone) and use once a day, two sprays in each nostril and rinse mouth after. Discussed proper administration. - Also to picket labor union OTC Oral Antihistamine (Zyrtec or Claritin) one [...] sprays and irrigation kits can be purchased qgdv-hyw-pektriw. Saline mixes can also be purchased or [...] are often combined with antihistamines in oral, tvxe-syq-sgykasu allergy drugs. In the [place], pseudoephedrine [...] inflammation. This drug is available as an zktw-grw-qwilntc nasal spray that must be used three [...] costly. Immunotherapy is usually started by an monogram machine operator. Treatment begins with several months of weekly [...] bleeds) or azelastine. documented in this encounter [facility] 12-23-2022 History of Presen t illness Narrative This note was created using Yebhi. Subjective Jimena Norwood is a 37 year [...] food. (Patient not taking: Reported on 12/23/2022) Jzwkuycjunnamgh-Tgpxoubmr-KB (BROMFED DM) 2-30-10 mg/5 mL syrup Take [...] or if symptoms persist. - Patient to picket labor union over the counter Oral Antihistamine (Zyrtec or Claritin) and take one pill, once a day. Follow package instructions. Also to picket labor union over the counter Antihistamine Eye drops (Pataday or Zaditor) one drop in each eye. Follow package instructions -Patient to return if new vision changes, sensation of something being in the eye, eye redness worsens, or eye pain develops. 2. Post-nasal drip - ICD9: 784.91, ICD10: R09.82 - Patient to picket labor union OTC Flonase (Fluticasone) and use once a day, two sprays in each nostril and rinse mouth after. Discussed proper administration. - Also to picket labor union OTC Oral Antihistamine (Zyrtec or Claritin) one pill, once a day. Follow package instructions. 3. Seasonal allergic rhinitis, unspecified trigger - ICD9: 477.9, ICD10: J30.2 - See interventions above. Angelique Guzman APRN-student documented in this encounter [facility] 09-02-2022 Note HNO ID: [id number] Author: Gerardo Zeng MA Service: ? Author Type: [employer] Workflow Consultant Type: Progress Notes Filed: 09/02/2022 2:51 PM Note Text: Patient strep test Positive, VV provider to treat. Gerardo Zeng MA [facility] 09-02-2022 Note HNO ID: [id number] Author: Barb Talavera APRN.SHANNAN Service: ? Author Type: Nurse Practitioner Type: Progress Notes Filed: 09/02/2022 1:56 PM Note Text: Telemedicine Visit - Distance Health Virtual Visit Note Patient seen on [facility] Online platform. Location of patient: [place] History of Present Illness Jimena Norwood is [...] tablet by mouth once daily. With food. Raerbzzintsoynq-Hwcpfvfef-DL (BROMFED DM) 2-30-10 mg/5 mL syrup Take [...] 462, ICD10: J02.9 -strep testing today at [place] site 3. Strep throat exposure - ICD9: V01.89, ICD10: Z20.818 - Reviewed OTC medications and supplements to help w/ sxs - Encouraged good hydration, handwashing and use of humidified air - Encouraged REST - Red flags discussed for need for in person care - All questions answered Barb Talavera APRN.SCREEN PRINTING PRESS OPERATOR If you let us know who your [...] help in providing you the best care. [facility] 09-02-2022 History of Presen t illness Narrative Patient strep test Positive, VV provider to treat. Gerardo Zeng MA documented in this encounter [facility] 09-02-2022 Instructions Barb Talavera APRN.SCREEN PRINTING PRESS OPERATOR - 09/02/2022 1:56 PM EDT SORE THROAT [...] mouth and then touches another person directly (wwep-cy-ilcz contact) or indirectly (mjbj-rv-qhmnbb, such as doorknob, telephone, toys). It is [...] every four months on our web site (www.[employer]/patients). Information below was obtained from Up to date Last literature review version 19.2: March 2011 This topic last updated: June 27, 2010 documented in this encounter [facility] 09-02-2022 History of Presen t illness Narrative Telemedicine Visit - Distance Health Virtual Visit Note Patient seen on [employer] platform. Location of patient: [place] History [...] tablet by mouth once daily. With food. Qviqyzsxyalendj-Gxqhahafb-RF (BROMFED DM) 2-30-10 mg/5 mL syrup Take [...] 462, ICD10: J02.9 -strep testing today at [place] site 3. Strep throat exposure - ICD9: V01.89, ICD10: Z20.818 - Reviewed OTC medications and supplements to help w/ sxs - Encouraged good hydration, handwashing and use of humidified air - Encouraged REST - Red flags discussed for need for in person care - All questions answered Barb Talavera APRN.SCREEN PRINTING PRESS OPERATOR If you let us know who your [...] the best care. documented in this encounter [facility] 02-15-2022 Miscellaneous Notes Cortisone injection is [...] [place] documented in this encounter [facility] 02-12-2022 History of Presen t illness [...] 2022 1:49 PM documented in this encounter [facility] 02-08-2022 History of Presen t illness [...] 2022 10:19 AM documented in this encounter [facility] Evaluation note Diagnosis Chronic pain of right knee [facility] Diagnosis Sore throat- Primary Acute pharyngitis Acute pharyngitis, unspecified etiology Strep throat exposure Contact with or exposure to other communicable diseases [facility] Sore throat- Primary Acute pharyngitis [facility] Diagnosis Strep throat- Primary Streptococcal sore throat [facility] Diagnosis Acute atopic conjunctivitis of right eye- Primary Acute atopic conjunctivitis Post-nasal drip Postnasal drip Seasonal allergic rhinitis, unspecified trigger [facility] Sore throat- Primary Acute pharyngitis [facility] Diagnosis Acute otitis media, right- Primary Unspecified otitis media documented in this encounter [facility] for visit Narrative* Diagnostic Procedure Only (Urgent) - Closed Specialty Diagnoses / Procedures Referred By Leena pizano Referred To Contact XR IMAGING Diagnoses Chronic pain of right knee Procedures XR KNEE GENERAL 4V AP BOTH/PA BOTH/LAT/MERC RIGHT RADIOLOGIC EXAM KNEE COMPLETE 4/MORE VIEWS Cody Madden APRN.SCREEN PRINTING PRESS OPERATOR [address] [place] [address] [place] [address] Referral ID Status Reason Start Date Expiration Date V isits Requested Visits Authorized [id number] Closed Auto-Generate d Referral 01/16/2022 02/15/2023 1 1 [facility] Summary Purpose Family History No Family History Records FoundNo Family History Records Found Advance Directives No Advanced Directives Records FoundNo Advanced Directives Records Found Reason for Referral Specialty Diagnoses / Procedures Referred By Leena t Referred To Contact MR IMAGING Diagnoses Chronic pain of right knee Procedures MRI KNEE WO IVCON RT MRI ANY JT LOWER EXTREM W/O CONTRAST Jack Smith V, DO [address] [place] [address] Mr Imaging Referral ID Status Reason Start Date Expiration Date V isits Requested Visits Authorized [id number] Closed Auto-Generate d Referral 01/24/2022 02/23/2022 1 1 Additional Source Comments (unrecognized sect ion and content) No Status Records FoundNo Status Records Found INFORMATION SOURCE (unrecogn ized section and content) DATE CREATED AUTHOR 05/06/2018 [facility] DATE CREATED AUTHOR AUTHOR'S ORGANIZ ATION 07/29/2023 [facility] Source Comments (unrecognize d section and content) In the event this informatio n is protected by the Federal Confidentiality of Alcohol and Drug Abuse Patient Records regulations: The Federal rules restrict any use of the information to criminally investigate or prosecute any alcohol or drug abuse patient.[facility] the event this information is protected by the Federal Confidentiality of Alcohol and Drug Abuse Patient Records regulations: The Federal rules restrict any use of the information to criminally investigate or prosecute any alcohol or drug abuse patient.[facility] the event this information is protected by the Federal Confidentiality of Alcohol and Drug Abuse Patient Records regulations: The Federal rules restrict any use of the information to criminally investigate or prosecute any alcohol or drug abuse patient.[facility] the event this information is protected by the Federal Confidentiality of Alcohol and Drug Abuse Patient Records regulations: The Federal rules restrict any use of the information to criminally investigate or prosecute any alcohol or drug abuse patient.[facility] the event this information is protected by the Federal Confidentiality of Alcohol and Drug Abuse Patient Records regulations: The Federal rules restrict any use of the information to criminally investigate or prosecute any alcohol or drug abuse patient.[facility] the event this information is protected by the Federal Confidentiality of Alcohol and Drug Abuse Patient Records regulations: The Federal rules restrict any use of the information to criminally investigate or prosecute any alcohol or drug abuse patient.[facility] the event this information is protected by the Federal Confidentiality of Alcohol and Drug Abuse Patient Records regulations: The Federal rules restrict any use of the information to criminally investigate or prosecute any alcohol or drug abuse patient.[facility] the event this information is protected by the Federal Confidentiality of Alcohol and Drug Abuse Patient Records regulations: The Federal rules restrict any use of the information to criminally investigate or prosecute any alcohol or drug abuse patient.[facility] the event this information is protected by the Federal Confidentiality of Alcohol and Drug Abuse Patient Records regulations: The Federal rules restrict any use of the information to criminally investigate or prosecute any alcohol or drug abuse patient.[facility] the event this information is protected by the Federal Confidentiality of Alcohol and Drug Abuse Patient Records regulations: The Federal rules restrict any use of the information to criminally investigate or prosecute any alcohol or drug abuse patient.[facility] Care Teams (unrecognized sec tion and content) Field Support Rep Relationship Specialty Start Date End Date Bere Conrad PCP - General Family Practice 02/28/17 Field Support Rep Relationship Specialty Start Date End Date ShelbyallanBere polk PCP - General Family Practice 02/28/17 Field Support Rep Relationship Specialty Start Date End Date Bere Conrad PCP - General Family Medicine 02/28/17 Field Support Rep Relationship Specialty Start Date End Date Bere Conrad PCP - General Family Medicine 02/28/17 Field Support Rep Relationship Specialty Start Date End Date Bere Conrad PCP - General Family Medicine 02/28/17 Field Support Rep Relationship Specialty Start Date End Date ShelbyallanBere polk PCP - General Family Medicine 02/28/17 Field Support Rep Relationship Specialty Start Date End Date Bere Conrad PCP - General Family Medicine 02/28/17 Field Support Rep Relationship Specialty Start Date End Date Bere Conrad PCP - General Family Medicine 02/28/17 Reason for Visit (unrecogniz ed section and content) Specialty Diagnoses / Procedures Referred By Leena t Referred To Contact MR IMAGING Diagnoses Chronic pain of right knee Procedures MRI KNEE WO IVCON RT MRI ANY JT LOWER EXTREM W/O CONTRAST Jack Smith V, DO [address] [place] [address] Mr Imaging Referral ID Status Reason Start Date Expiration Date V isits Requested Visits Authorized [id number] Closed Auto-Generate d Referral 01/24/2022 02/23/2022 1 [...] BE BASED ON THE PRIMARY CLINICAL RECORDS. [employer] [facility]. provides no warranty or guarantee of the accuracy or completeness of information in this document.
[2024-09-12] MEDS: Piperacil/Tazobactam 3.375 GM in 0.9% Normal Saline (50mL MB+) 50 ML IV ×3 (05:34→21:26)
--- OUTSIDE RECORDS SUMMARY | 2024-09-12 05:40 | XMS RPT_ITS | CCD ---
Author Organization [facility] Care Team Providers Care Exterminator Name Role Phone BERE CONRAD Unavailable Unavailable JUAN JOSÉI, ALEXELIDIA Unavailable Unavailable NO REFERRING DR Unavailable Unavailable Juan Joséi Alexelidia Primary Care Provider Juan JoséiBere Primary Care Provider [phone] LiscathyskiJimenaia Primary Care Provider LISZECHARIAHI, ALEXIA Primary [...] oral solution (10 sources) alpha-Adrenergic Agonist, Uncompetitive K-fottdq-A-aspartate Receptor Antagonist, Sigma-1 Agonist Start: 02-08-20 19 [...] CN Office Visit ([facility] ) ANAYELIJIMENA WEBER ([id number]) 1985 M Date Time Provider Department 07/28/23 10:45 AM TAMARA WYNNE [facility] During your visit today, we recorded [...] Patient agreeable to treatment plan. Tamara Wynne APRN.SOFTWARE SUPPORT ANALYST Allergies As of Date: 07/28/2023 (No Known [...] Encounter Status:Closed by TAMARA WYNNE on 07/28/23 [facility] Atilio 03-25-2023 CNOV Office Visit ([facility] ) JIMENA NORWOOD ([id number]) 1985 M Date Time Provider Department 03/25/23 11:15 AM JASMYNE KEMP [facility] During your visit today, we recorded the following information about you: Temperature Pulse Respiration Blood pressure 97.1 degrees 78/minute 16/minute 122/80 Weight 122.1 kg Jasmyne Kemp APRN.SOFTWARE SUPPORT ANALYST 03/25/2023 11:39 AM Signed Subjective Sore Throat [...] Discussed expected course of illness Jasmyne Kemp APRN.SOFTWARE SUPPORT ANALYST SORE THROAT INSTRUCTIONS SORE THROAT OVERVIEW - Sore throat is a common problem during childhood, and is usually the result of a bacterial or viral infection. Although sore throat usually r (more content not included)... Normal [facility] STREP A MOLECULAR (POC)on Procedural Control Valid [facility] Strep A (POCT) Negative Negative [facility] CNOVon 12-23-2022 CNOV Office Visit ([facility] ) JIMENA NORWOOD ([id number]) 1985 M Date Time Provider Department 12/23/22 10:00 AM JASMYNE KEMP [facility] During your visit today, we recorded the following information about you: Temperature Pulse Respiration Blood pressure 97.7 degrees 75/minute 23/minute 122/76 Weight 120.5 kg Angelique Guzman 12/23/2022 11:22 AM Signed This note was created using Client Outlookriter. Subjective Jimena Norwood is a 37 year [...] or if symptoms persist. - Patient to nut picker over the counter Oral Antihistamine (Zyrtec or Claritin) and take one pill, once a day. Follow package instructions. Also to nut picker over the counter Antihistamine Eye drops (Pataday or Zaditor) one drop in each eye. Follow package instructions -Patient to return if new vision changes, sensation of something being in the eye, eye redness worsens, or eye pain develops. 2. Post-nasal drip - ICD9: 784.91, ICD10: R09.82 - Patient to nut picker OTC Flonase (Fluticasone) and use once a day, two sprays in each nostril and rinse (more content not included)... [facility] Nurse Visit ([facility]) JIMENA NORWOOD ([id number]) 1985 M Date Time Provider Department 09/02/22 3:00 PM [facility] During your visit today, we recorded the following information about you: Gerardo Zeng MA 09/02/2022 2:51 PM Signed Patient strep test Positive, VV provider to treat. Gerardo Zeng MA Referring Provider: SELF [200] Allergies As of Date: 09/02/2022 (No Known Allergies) Date Reviewed: 09/02/2022 Reviewed by: Barb Talavera APRN.SOFTWARE SUPPORT ANALYST - Fully Assessed Primary Visit Diagnosis:Sore throat [...] Status:Closed by GERARDO ZENG on 09/02/22 Normal [facility] MRI KNEE WO IVCON RTon 02-12 [facility] XR Knee - right 4 Viewson IMPRESSION: Normal Roster Clerk: PSCB Transcribe Date/Time: Jan 16 2022 7:42P Dictated by : SHERRELL JOHNSTON MD This examination was interpreted and the report reviewed and electronically signed by: SHERRELL JOHNSTON MD on Jan 16 2022 7:42PM [facility] DIVISION OF RADIOLOGY * * *Final Report* [...] No interval change. DIVISION OF RADIOLOGY Provider, [facility] - 01/16/2022 * * *Final Report* * [...] effusion. No interval change. IMPRESSION IMPRESSION: Normal Roster Clerk: PSCElvin Transcribe Date/Time: Jan 16 2022 7:42P Dictated by : SHERRELL JOHNSTON MD This examination was interpreted and the report reviewed and electronically signed by: SHERRELL JOHNSTON MD on Jan 16 2022 7:42PM EST [facility] Radiology Study observation (narrative) [facility] XR Knee - right 4 ViewsOrder ed By: Cczofia Provider on 01-16-2022 [facility] Vital Signs Date Time Vital Sign Value Performing Clinician Angely walton 07-28-2023 10:45-0400 Body temperature 96.91 [degF] Tamara Wynne APRN.SOFTWARE SUPPORT ANALYST Work Phone: [facility] 07-28-2023 10:45-0400 Body weight 119.02 kg Tamara Wynne APRN.SOFTWARE SUPPORT ANALYST Work Phone: [facility] 07-28-2023 10:45-0400 Diastolic blood pressure 76 mm[Hg] Tamara Wynne APRN.SOFTWARE SUPPORT ANALYST Work Phone: [facility] 07-28-2023 10:45-0400 Heart rate 80 /min Tamara Wynne APRN.SOFTWARE SUPPORT ANALYST Work Phone: [facility] 07-28-2023 10:45-0400 Respiratory rate 20 /min Tamara Wynne APRN.SOFTWARE SUPPORT ANALYST Work Phone: [facility] 07-28-2023 10:45-0400 SaO2% (BldA) [Mass fraction] 100 % Tamara Wynne APRN.SOFTWARE SUPPORT ANALYST Work Phone: [facility] 07-28-2023 10:45-0400 Systolic blood pressure 122 mm[Hg] Tamara Wynne APRN.SOFTWARE SUPPORT ANALYST Work Phone: [facility] 03-25-2023 11:18-0400 Body temperature 97.11 [degF] Jasmyne Praisler-Wood DRIFTMAN.SOFTWARE SUPPORT ANALYST Work Phone: [facility] 03-25-2023 11:18-0400 Body weight 122.11 kg Jasmyne Praisler-Wood DRIFTMAN.SOFTWARE SUPPORT ANALYST Work Phone: [facility] 03-25-2023 11:18-0400 Diastolic blood pressure 80 mm[Hg] Jasmyne Praisler-Wood DRIFTMAN.SOFTWARE SUPPORT ANALYST Work Phone: [facility] 03-25-2023 11:18-0400 Heart rate 78 /min Jasmyne Praisler-Wood DRIFTMAN.SOFTWARE SUPPORT ANALYST Work Phone: [facility] 03-25-2023 11:18-0400 Respiratory rate 16 /min Jasmyne Praisler-Wood DRIFTMAN.SOFTWARE SUPPORT ANALYST Work Phone: [facility] 03-25-2023 11:18-0400 SaO2% (BldA) [Mass fraction] 96 % Jasmyne Praisler-Wood DRIFTMAN.SOFTWARE SUPPORT ANALYST Work Phone: [facility] 03-25-2023 11:18-0400 Systolic blood pressure 122 mm[Hg] Jasmyne Praisler-Wood DRIFTMAN.SOFTWARE SUPPORT ANALYST Work Phone: [facility] 12-23-2022 10:17-0500 Body temperature 97.7 [degF] Jasmyne Praisler-Wood DRIFTMAN.SOFTWARE SUPPORT ANALYST Work Phone: [facility] 12-23-2022 10:17-0500 Body weight 120.47 kg Jasmyne Praisler-Wood DRIFTMAN.SOFTWARE SUPPORT ANALYST Work Phone: [facility] 12-23-2022 10:17-0500 Diastolic blood pressure 76 mm[Hg] Jasmyne Praisler-Wood DRIFTMAN.SOFTWARE SUPPORT ANALYST Work Phone: [facility] 12-23-2022 10:17-0500 Heart rate 75 /min Jasmyne Praisler-Wood DRIFTMAN.SOFTWARE SUPPORT ANALYST Work Phone: [facility] 12-23-2022 10:17-0500 Respiratory rate 23 /min Jasmyne Praisler-Wood DRIFTMAN.SOFTWARE SUPPORT ANALYST Work Phone: [facility] 12-23-2022 10:17-0500 SaO2% (BldA) [Mass fraction] 98 % aJsmyne Kemp APRN.SOFTWARE SUPPORT ANALYST Work Phone: [facility] 12-23-2022 10:17-0500 Systolic blood pressure 122 mm[Hg] Jasmyne Kemp APRN.SOFTWARE SUPPORT ANALYST Work Phone: [facility] Encounters Encounter Date Encounter Type Care Provider Facility Start: 07-28-2023 End: 07-28-2023 [facility] Facility:[facility] Start: 07-28-2023 End: 07-28-2023 Patient encounter procedure Tamara Wynne APRN.SOFTWARE SUPPORT ANALYST Work Phone: [facility] Comment on above: Acute otitis media, right (Primary Dx) Start: 03-25-2023 End: 03-25-2023 [facility] Facility:[facility] Start: 03-25-2023 End: 03-25-2023 Patient encounter procedure Jasmyne Kemp APRN.SOFTWARE SUPPORT ANALYST Work Phone: [facility] Comment on above: Sore throat (Primary Dx) Start: 12-23-2022 End: 12-23-2022 [facility] Facility:[facility] Start: 12-23-2022 End: 12-23-2022 Patient encounter procedure Jasmyne Kemp APRN.SOFTWARE SUPPORT ANALYST Work Phone: [facility] Comment on above: Acute atopic conjunc tivitis of right eye (Primary Dx); Post-nasal drip; Seasonal allergic rhinitis, unspecified trigger Start: 09-02-2022 End: 09-02-2022 ambulatory [facility] Facility:[facility] Start: 09-02-2022 End: 09-02-2022 Nursing evaluation of patient and report [facility] Work Phone: [facility] Comment on above: Sore throat (Primary Dx) Start: 09-02-2022 End: 09-02-2022 ambulatory Barb Talavera MARK Work Phone: Telemedicine Comment on above: Sore throat (Primary Dx); Acute pharyngitis, unspecified etiology; Strep throat exposure strep Start: 09-02-2022 E-mail encounter fro baudilio caregiver Barb Talavera MARK Work Phone: [facility] Start: 09-02-2022 End: 09-02-2022 Telemedicine consultation with patient Barb Talavera DAWOOD.SHANNAN Work Phone: [facility] Start: 02-14-2022 ambulatory Jack Ely O Work Phone: [facility] Comment on above: Question regarding M RI KNEE WO IVCON RT Start: 02-12-2022 End: 02-12-2022 Subsequent hospital visit by physician Mri Radio [facility] (I-Stat/1.5t) Work Phone: Radiology Comment on above: Chronic pain of righ t knee [M25.561, G89.29] Start: 02-08-2022 ambulatory Nopcp (Historical) [facility] Start: 01-16-2022 End: 01-16-2022 Subsequent hospital visit by physician Xr [facility] Work Phone: Radiology Comment on above: Chronic pain of righ t knee [M25.561, G89.29] Start: 02-20-2017 End: 02-21-2017 Ambulatory BERE CONRAD Facility:[facility] Procedures Date Procedure Procedure Detail Performing Clinician Start: 03-25-2023 STREP A MOLECULAR (POC) Jasmyne Kemp APRN.CNP Work Phone: Start: 02-12-2022 Mri any jt lower ext rem w/o contrast matrl Jack Keller DO Work Phone: Start: 01-16-2022 Radiologic exam knee complete 4/more views Cody Madden APRN.CNP Work Phone: Plan of Treatment Date Care Activity Detail Author Start: 10-06-2028 Urine microalbumin profile [facility] Start: 07-11-2024 Covid-19 Vaccine ( season) Covid-19 Vaccine ( season) [facility] Start: 07-11-2024 Influenza vaccination Influenza Vacc ine (#1) [facility] Start: 07-11-2023 Influenza vaccination [facility] Start: 11-10-2022 DEPRESSION ASSESSMENT DEPRESSION ASS [facility] Start: 07-11-2022 Influenza vaccination C [facility] Start: 2022 Lipid 1996 panel - Serum or Plasma Lipid Screening [facility] Start: 2022 Lipid panel Lipid Screening [facility] Start: 2022 LIPID SCREEN LIPID SCREEN [facility] Start: 11-10-2021 DEPRESSION ASSESSMENT DEPRESSION ASS [facility] Start: 2006 Hepatitis B Vaccine (1 of 3 - 19+ 3-dose series) Hepatitis B Vaccine (1 of 3 - 19+ 3-dose series) [facility] Start: 2005 Anxiety Screening Anxiety Screening [facility] Start: 2005 Depression Screening Depression Scre ening [facility] Start: 2005 HEPATITIS C SCREENING HEPATITIS C [facility] Start: 2005 Hepatitis C screening Hepatitis C [facility] Start: 2005 HIV SCREENING HIV SCREENING [facility] Start: 2005 HIV screening HIV Screening [facility] Start: 1999 Adult depression screening assessment DEPRESSION SCREENING [facility] Start: 1992 COVID-19 VACCINE (1) COVID-19 VACCIN E (1) [facility] Start: 1987 COVID-19 VACCINE (#1) COVID-19 VACCI NE (#1) [facility] Start: 1987 HEPATITIS B (1 of 3 - 3-dose series) HEPATITIS B (1 of 3 - 3-dose series) [facility] Start: 1987 Hepatitis B Vaccine (1 of 3 - 3-dose series) Hepatitis B Vaccine (1 of 3 - 3-dose series) [facility] STREP A MOLECULAR (POC) STREP A MOLECULAR (POC) Microbiology Routine Sore throat Ordered: 09/02/2022 [facility] Work Phone: Comment on above: Ordered: [facility]/02/[facility] Immunizations Immunization Date Immunization Notes Care Provider Haider woods 10-06-2018 tetanus toxoid, redu cyndi diphtheria toxoid, and acellular pertussis vaccine, adsorbed Nopcp (Historical) [facility] Work Phone: Payers Date Payer Category Payer Unknown [id number] 2018 Unknown [employer] PPO OOS [id number] 2018-Present [phone] [address] [place] [address] PPO [id number] 2018 Unknown [employer] C[employer] PPO OOS [id number] 2018-Present [phone] [address] [place] [address] PPO [id number] Social History Date Type Detail Facility Start: 05-24-2014 End: 07-31-2016 Tobacco smoking status NHIS Never smoked tobacco [facility] Work Phone: Start: 05-24-2014 End: 07-31-2016 Tobacco use and exposure Smokeless tobacco non-user [facility] Work Phone: Start: 01-16-2022 End: 01-23-2022 Alcohol intake Current drinker of alcohol (finding) [facility] Start: 07-31-2016 History SDOH Alcohol Comment socially [facility] Start: 1985 Sex Assigned At Not on file [facility] Start: 12-17-2021 End: 09-02-2022 Exposure to SARS-CoV-2 (event) Not sure [facility] Start: 10-18-2020 End: 07-28-2023 History of Social function [facility] Start: 10-18-2020 End: 07-28-2023 Tobacco use panel [facility] National Score (1-100), lower number is lower risk Not on file [facility] Start: 01-17-2022 Gender identity Identifies as male gender (finding) [facility] Clinical Notes 02-08-2022 to 07-28-2023 Tamara Wynne APRN.SOFTWARE SUPPORT ANALYST - 07/28/2023 10:48 AM EDTPatient Titi Kemp APRN.CNP - 03/25/2023 11:22 AM EDTPatient InstructionsAngelique Guzman - 12/23/2022 10:26 AM EST Note Date & Type Note Facility 07-28-2023 Note HNO ID: [id number] Author: Tamara Wynne APRN.SOFTWARE SUPPORT ANALYST Service: ? Author Type: Nurse Practitioner Type: [...] food. (Patient not taking: Reported on 12/23/2022) Nvrfzuznjmjweli-Fcmdorbje-UN (BROMFED DM) 2-30-10 mg/5 mL syrup Take [...] Patient agreeable to treatment plan. Tamara Wynne APRN.[facility] 07-28-2023 History of Presen t illness [...] food. (Patient not taking: Reported on 12/23/2022) Xhopvoqlcwlujve-Ucxtkgcpj-YK (BROMFED DM) 2-30-10 mg/5 mL syrup Take [...] Tamara Wynne APRN.SHANNAN documented in this encounter [facility] 03-25-2023 Note HNO ID: [id number] Author: Jasmyne Kemp APRN.SHANNAN Service: ? Author [...] food. (Patient not taking: Reported on 12/23/2022) Ettcswrueijxbdz-Zwmfodrjh-BB (BROMFED DM) 2-30-10 mg/5 mL syrup Take [...] expected course of illness Jasmyne Kemp APRN.CNP [facility] 03-25-2023 Instructions Jasmyne Kemp APRN.CNP - 03/25/2023 [...] Discussed expected course of illness Jasmyne Kemp APRN.SOFTWARE SUPPORT ANALYST SORE THROAT INSTRUCTIONS SORE THROAT OVERVIEW - [...] mouth and then touches another person directly (igtt-sj-ajow contact) or indirectly (ltxz-ga-wbeapw, such as doorknob, telephone, toys). It is [...] every four months on our web site ([email or web address]). Information below was obtained from Up to date Last literature review version 19.2: March 2011 This topic last updated: June 27, 2010 documented in this encounter [facility] 03-25-2023 History of Presen t illness Narrative [...] food. (Patient not taking: Reported on 12/23/2022) Qvxvifmdmqvbhew-Ffnzwrmdr-AK (BROMFED DM) 2-30-10 mg/5 mL syrup Take [...] Discussed expected course of illness Jasmyne Kemp APRN.SOFTWARE SUPPORT ANALYST documented in this encounter [facility] 12-23-2022 Note HNO ID: [id number] Author: Angelique Guzman Service: ? Author Type: ? Type: Progress Notes Filed: 12/23/2022 11:22 AM Note Text: This note was created using Pogoapp. Subjective Jimena Norwood is a 37 year [...] food. (Patient not taking: Reported on 12/23/2022) Svjyvqbkerqevcb-Vdnboxhpo-TK (BROMFED DM) 2-30-10 mg/5 mL syrup Take [...] or if symptoms persist. - Patient to nut picker over the counter Oral Antihistamine (Zyrtec or Claritin) and take one pill, once a day. Follow package instructions. Also to nut picker over the counter Antihistamine Eye drops (Pataday or Zaditor) one drop in each eye. Follow package instructions -Patient to return if new vision changes, sensation of something being in the eye, eye redness worsens, or eye pain develops. 2. Post-nasal drip - ICD9: 784.91, ICD10: R09.82 - Patient to nut picker OTC Flonase (Fluticasone) and use once a day, two sprays in each nostril and rinse mouth after. Discussed proper administration. - Also to nut picker OTC Oral Antihistamine (Zyrtec or Claritin) one pill, once a day. Follow package instructions. 3. Seasonal allergic rhinitis, unspecified trigger - ICD9: 477.9, ICD10: J30.2 - See interventions above. Angelique Guzman APRN-student [facility] 12-23-2022 Instructions Angelique Guzman - 12/23/2022 11:04 AM EST ASSESSMENT/PLAN: 1. Acute atopic conjunctivitis of right eye - ICD9: 372.05, ICD10: H10.11 (primary diagnosis) Allergic - Instructed to call if high fever, development of periorbital redness or swelling, eye pain, visual changes, concerns or if symptoms persist. - Patient to nut picker over the counter Oral Antihistamine (Zyrtec or Claritin) and take one pill, once a day. Follow package instructions. Also to nut picker over the counter Antihistamine Eye drops (Pataday or Zaditor) one drop in each eye. Follow package instructions -Patient to return if new vision changes, sensation of something being in the eye, eye redness worsens, or eye pain develops. 2. Post-nasal drip - ICD9: 784.91, ICD10: R09.82 - Patient to nut picker OTC Flonase (Fluticasone) and use once a day, two sprays in each nostril and rinse mouth after. Discussed proper administration. - Also to nut picker OTC Oral Antihistamine (Zyrtec or Claritin) [...] sprays and irrigation kits can be purchased etbu-lod-zrgsrwz. Saline mixes can also be purchased or [...] are often combined with antihistamines in oral, zfmc-bfn-zihyrku allergy drugs. In the [place], pseudoephedrine [...] inflammation. This drug is available as an iiqk-ych-wndqkze nasal spray that must be used three [...] costly. Immunotherapy is usually started by an hand rounder. Treatment begins with several months of weekly [...] bleeds) or azelastine. documented in this encounter [facility] 12-23-2022 History of Presen t illness Narrative This note was created using Pogoapp. Subjective Jimena Norwood is a 37 year [...] food. (Patient not taking: Reported on 12/23/2022) Xbuiuhylubtsjyg-Ycyahkskv-DX (BROMFED DM) 2-30-10 mg/5 mL syrup Take [...] or if symptoms persist. - Patient to nut picker over the counter Oral Antihistamine (Zyrtec or Claritin) and take one pill, once a day. Follow package instructions. Also to nut picker over the counter Antihistamine Eye drops (Pataday or Zaditor) one drop in each eye. Follow package instructions -Patient to return if new vision changes, sensation of something being in the eye, eye redness worsens, or eye pain develops. 2. Post-nasal drip - ICD9: 784.91, ICD10: R09.82 - Patient to nut picker OTC Flonase (Fluticasone) and use once a day, two sprays in each nostril and rinse mouth after. Discussed proper administration. - Also to nut picker OTC Oral Antihistamine (Zyrtec or Claritin) one pill, once a day. Follow package instructions. 3. Seasonal allergic rhinitis, unspecified trigger - ICD9: 477.9, ICD10: J30.2 - See interventions above. Angelique Guzman APRN-student documented in this encounter [facility] 09-02-2022 Note HNO ID: [id number] Author: Gerardo Zeng MA Service: ? Author Type: Windows Laptop Technician Type: Progress Notes Filed: 09/02/2022 2:51 PM Note Text: Patient strep test Positive, VV provider to treat. Gerardo Zeng MA [facility] 09-02-2022 Note HNO ID: [id number] Author: Barb Talavera APRN.SHANNAN Service: ? Author Type: Nurse Practitioner Type: Progress Notes Filed: 09/02/2022 1:56 PM Note Text: Telemedicine Visit - Distance Health Virtual Visit Note Patient seen on [facility] Online platform. Location of patient: [place] History of Present Illness Jimena Norwood is [...] tablet by mouth once daily. With food. Dycssoecnzrkkxn-Ihxuegnve-GR (BROMFED DM) 2-30-10 mg/5 mL syrup Take [...] 462, ICD10: J02.9 -strep testing today at [place] site 3. Strep throat exposure - ICD9: V01.89, ICD10: Z20.818 - Reviewed OTC medications and supplements to help w/ sxs - Encouraged good hydration, handwashing and use of humidified air - Encouraged REST - Red flags discussed for need for in person care - All questions answered Barb Talavera APRN.SOFTWARE SUPPORT ANALYST If you let us know who your [...] help in providing you the best care. [facility] 09-02-2022 History of Presen t illness Narrative Patient strep test Positive, VV provider to treat. Gerardo Zeng MA documented in this encounter [facility] 09-02-2022 Instructions Barb Talavera APRN.SOFTWARE SUPPORT ANALYST - 09/02/2022 1:56 PM EDT SORE THROAT [...] mouth and then touches another person directly (gcfp-ke-nwhy contact) or indirectly (gdbc-xf-tsajti, such as doorknob, telephone, toys). It is [...] every four months on our web site ([email or web address]). Information below was obtained from Up to date Last literature review version 19.2: March 2011 This topic last updated: June 27, 2010 documented in this encounter [facility] 09-02-2022 History of Presen t illness Narrative Telemedicine Visit - Distance Health Virtual Visit Note Patient seen on [employer] Online platform. Location of patient: [place] History [...] tablet by mouth once daily. With food. Cghopjngdudoqje-Bmsxbjabx-IO (BROMFED DM) 2-30-10 mg/5 mL syrup Take [...] 462, ICD10: J02.9 -strep testing today at [place] site 3. Strep throat exposure - ICD9: V01.89, ICD10: Z20.818 - Reviewed OTC medications and supplements to help w/ sxs - Encouraged good hydration, handwashing and use of humidified air - Encouraged REST - Red flags discussed for need for in person care - All questions answered Barb Talavera APRN.SOFTWARE SUPPORT ANALYST If you let us know who your [...] the best care. documented in this encounter [facility] 02-15-2022 Miscellaneous Notes Cortisone injection is not [...] [place] Ma documented in this encounter [facility] 02-12-2022 History of Presen t illness Narrative [...] 2022 1:49 PM documented in this encounter [facility] 02-08-2022 History of Presen t illness Narrative [...] 2022 10:19 AM documented in this encounter [facility] Evaluation note Diagnosis Chronic pain of right knee [facility] Diagnosis Sore throat- Primary Acute pharyngitis Acute pharyngitis, unspecified etiology Strep throat exposure Contact with or exposure to other communicable diseases [facility] Diagnosis Sore throat- Primary Acute pharyngitis [facility] Diagnosis Strep throat- Primary Streptococcal sore throat [facility] Diagnosis Acute atopic conjunctivitis of right eye- Primary Acute atopic conjunctivitis Post-nasal drip Postnasal drip Seasonal allergic rhinitis, unspecified trigger [facility] Diagnosis Sore throat- Primary Acute ph[facility]itis [facility] Diagnosis Acute otitis media, right- Primary Unspecified otitis media documented in this encounter [facility] for visit Narrative* Diagnostic Procedure Only (Urgent) - Closed Specialty Diagnoses / Procedures Referred By Leena pizano Referred To Contact XR IMAGING Diagnoses Chronic pain of right knee Procedures XR KNEE GENERAL 4V AP BOTH/PA BOTH/LAT/MERC RIGHT RADIOLOGIC EXAM KNEE COMPLETE 4/MORE VIEWS Cody Madden APRN.SOFTWARE SUPPORT ANALYST [address] [place] [address] [place] [address] Referral ID Status Reason Start Date Expiration Date V isits Requested Visits Authorized [id number] Closed Auto-Generate d Referral 01/16/2022 02/15/2023 1 1 [facility] Summary Purpose Family History No Family History Records FoundNo Family History Records Found Advance Directives No Advanced Directives Records FoundNo Advanced Directives Records Found Reason for Referral Specialty Diagnoses / Procedures Referred By Leena t Referred To Contact MR IMAGING Diagnoses Chronic pain of right knee Procedures MRI KNEE WO IVCON RT MRI ANY JT LOWER EXTREM W/O CONTRAST Jack Smith V, DO [address] [place] [address] Mr Imaging Referral ID Status Reason Start Date Expiration Date V isits Requested Visits Authorized [id number] Closed Auto-Generate d Referral 01/24/2022 02/23/2022 1 1 Additional Source Comments (unrecognized sect ion and content) No Status Records FoundNo Status Records Found INFORMATION SOURCE (unrecogn ized section and content) DATE CREATED AUTHOR 05/06/2018 [facility] DATE CREATED AUTHOR AUTHOR'S ORGANIZ ATION 07/29/2023 [facility] Source Comments (unrecognize d section and content) In the event this informatio n is protected by the Federal Confidentiality of Alcohol and Drug Abuse Patient Records regulations: The Federal rules restrict any use of the information to criminally investigate or prosecute any alcohol or drug abuse patient.[facility] event this information is protected by the Federal Confidentiality of Alcohol and Drug Abuse Patient Records regulations: The Federal rules restrict any use of the information to criminally investigate or prosecute any alcohol or drug abuse patient.[facility] event this information is protected by the Federal Confidentiality of Alcohol and Drug Abuse Patient Records regulations: The Federal rules restrict any use of the information to criminally investigate or prosecute any alcohol or drug abuse patient.[facility] event this information is protected by the Federal Confidentiality of Alcohol and Drug Abuse Patient Records regulations: The Federal rules restrict any use of the information to criminally investigate or prosecute any alcohol or drug abuse patient.[facility] the event this information is protected by the Federal Confidentiality of Alcohol and Drug Abuse Patient Records regulations: The Federal rules restrict any use of the information to criminally investigate or prosecute any alcohol or drug abuse patient.[facility] event this information is protected by the Federal Confidentiality of Alcohol and Drug Abuse Patient Records regulations: The Federal rules restrict any use of the information to criminally investigate or prosecute any alcohol or drug abuse patient.[facility] event this information is protected by the Federal Confidentiality of Alcohol and Drug Abuse Patient Records regulations: The Federal rules restrict any use of the information to criminally investigate or prosecute any alcohol or drug abuse patient.[facility] event this information is protected by the Federal Confidentiality of Alcohol and Drug Abuse Patient Records regulations: The Federal rules restrict any use of the information to criminally investigate or prosecute any alcohol or drug abuse patient.[facility] event this information is protected by the Federal Confidentiality of Alcohol and Drug Abuse Patient Records regulations: The Federal rules restrict any use of the information to criminally investigate or prosecute any alcohol or drug abuse patient.[facility] event this information is protected by the Federal Confidentiality of Alcohol and Drug Abuse Patient Records regulations: The Federal rules restrict any use of the information to criminally investigate or prosecute any alcohol or drug abuse patient.[facility] Care Teams (unrecognized sec tion and content) Exterminator Relationship Specialty Start Date End Date Bere Conrad PCP - General Family Practice 02/28/17 Exterminator Relationship Specialty Start Date End Date ShelbyallanBere polk PCP - General Family Practice 02/28/17 Exterminator Relationship Specialty Start Date End Date Bere Conrad PCP - General Family Medicine 02/28/17 Exterminator Relationship Specialty Start Date End Date Bere Conrad PCP - General Family Medicine 02/28/17 Exterminator Relationship Specialty Start Date End Date Bere Conrad PCP - General Family Medicine 02/28/17 Exterminator Relationship Specialty Start Date End Date ShelbyallanBere polk PCP - General Family Medicine 02/28/17 Exterminator Relationship Specialty Start Date End Date Bere Conrad PCP - General Family Medicine 02/28/17 Exterminator Relationship Specialty Start Date End Date Bere Conrad PCP - General Family Medicine 02/28/17 Reason for Visit (unrecogniz ed section and content) Specialty Diagnoses / Procedures Referred By Leena t Referred To Contact MR IMAGING Diagnoses Chronic pain of right knee Procedures MRI KNEE WO IVCON RT MRI ANY JT LOWER EXTREM W/O CONTRAST Jack Smith V, DO [address] [place] [address] Mr Imaging Referral ID Status Reason Start Date Expiration Date V isits Requested Visits Authorized [id number] Closed Auto-Generate d Referral 01/24/2022 02/23/2022 1 [...] BE BASED ON THE PRIMARY CLINICAL RECORDS. [facility]. provides no warranty or guarantee of the accuracy or completeness of information in this document.
[2024-09-12 06:26] LABS: Absolute Lymphocyte Count 1.22 X10^3/uL (0.83-4.51); Absolute Neutrophil Count 13.4 X10^3/uL (2.0-7.7); Basophil# 0.02 X10^3/uL; Basophil% 0.1 % (0-1); Eosinophil# 0.03 X10^3/uL; Eosinophils% 0.2 % (0-5); Hemoglobin 15.8 g/dL (13.0-16.5); Lymphocyte # 1.22 X10^3/ul (0.83-4.51); Lymphocyte % 7.8 % (19-41); Mean Corp Hgb Conc 35.1 g/dL (32-36); Mean Corpuscular Hgb 29.3 pg (27.0-32.0); Mean Corpuscular Volume 83.5 fL (80-94); Mean Platelet Vol. 10.7 fl (6.2-12.0); Monocyte# 0.93 X10^3/uL; Monocyte% 5.9 % (0-10); NRBC Flagged by Analyzer 0 % (0-5); Neutrophil % 85.3 % (47-70); Platelet Count 281 K/mm3 (150-450); RBC Distribution Width CV 11.9 % (11.6-14.6); RBC Distribution Width SD 35.8 fl (35.1-43.9); Red Blood Count 5.39 M/mm3 (4.6-6.2); White Blood Count 15.7 K/mm3 (4.4-11.0)
[2024-09-12 06:53] LABS: Anion Gap 7 (5-15); BUN 9 mg/dL (7-18); BUN/Creat Ratio 8.4 RATIO (10-20); Calcium,Total 8.9 mg/dL (8.5-10.1); Chloride 107 mmol/L (98-107); Creatinine, Serum 1.07 mg/dL (0.70-1.30); EST Glomerular Filtration Rate 82 mL/min (>60); Est Glom Filt Rate - Afr Amer 100 mL/min (>60); Glucose 157 mg/dL (74-106); Potassium 3.7 mmol/L (3.5-5.1); Sodium Level 138 mmol/L (136-145)
[2024-09-12] MEDS: 0.9% Normal Saline (1000mL) 1,000 ML 125 ML IV (06:57)
--- NOTE | 2024-09-12 08:16 | PCM.HP.STD ---
HPI - General General Date of Admission: 09/12/24 HPI Narrative JIMENA READ, is a 39 M who presents to the ER due to right upper quadrant pain about 9 PM. Patient did have ice cream about 8 PM. Patient states he has had 1 other episode in the past but the pain did improved. Patient did require multiple doses of pain meds?Dilaudid, fentanyl in the ER. Patient does have a history of GERD which is controlled with Protonix. Patient CT abdomen pelvis showed some sludge in the gallbladder, ultrasound of the gallbladder showed a normal wall again with some sludge no pericholecystic fluid or signs of cholecystitis were seen. Patient normal white blood count and normal LFTs coming to the ER. This morning patient does have white blood count of 15 patient is on Zosyn for acute cholecystitis. Patient's pain is much better controlled after getting Toradol in the ER-rates it a 2?01/17. PFSH Medical History Kidney stones Gastric reflux Non-smoker Home Medications ?Medication ?Instructions ?Recorded ?Last Taken ?Type pantoprazole 40 mg tablet,delayed 40 mg PO DAILY #30 TABLETS 07/02/24 09/11/24 Rx release Allergy/AdvReac Type Severity Reaction Status Date / Time No Known Allergies Allergy Verified 09/11/24 22:17 Surgical History Hx of wisdom tooth extraction Social History Smoking Status: Never smoker ROS Constitutional Constitutional: Reports anorexia; Denies chills ENT HEENT: Denies dysphagia Cardiovascular Cardiovascular: Denies chest pain at rest Respiratory/Chest Respiratory/Chest: Denies productive cough Gastrointestinal Gastrointestinal: Reports abdominal pain and nausea; Denies constipation Genitourinary Genitourinary: Denies dysuria Musculoskeletal Musculoskeletal: Denies joint swelling Integumentary Integumentary: Denies jaundice Neurologic Neurologic: Denies focal weakness Psychiatric Psychiatric: Denies depression Endocrine Endocrinology: Denies palpitations Hematologic/Lymphatic Hematologic/Lymphatic: Denies easy bleeding Vital Signs Vital Signs Vital Signs: 09/11/24 22:17 09/12/24 00:24 09/12/24 01:18 EDT Temperature 97.9 F Temperature Source Temporal Pulse Rate 72 66 82 Respiratory Rate 18 16 16 Respiratory Effort Respiratory Depth Respiratory Pattern Blood Pressure 187/127 H 162/98 H 145/102 H Blood Pressure Mean 147 119 116 Blood Pressure Source Blood Pressure Position Blood Pressure Location Pulse Ox 98 98 98 Oxygen Delivery Method Room Air Room Air Room Air 09/12/24 01:00 EST 09/12/24 02:57 09/12/24 05:00 Temperature Temperature Source Pulse Rate 84 70 71 Respiratory Rate 16 16 16 Respiratory Effort Respiratory Depth Respiratory Pattern Blood Pressure 132/91 H 148/90 H 143/100 H Blood Pressure Mean 104 109 114 Blood Pressure Source Blood Pressure Position Blood Pressure Location Pulse Ox 98 98 98 Oxygen Delivery Method Room Air Room Air Room Air 09/12/24 05:36 09/12/24 06:04 09/12/24 06:08 Temperature 98.2 F 98.1 F Temperature Source Oral Pulse Rate 98 78 Respiratory Rate 16 16 Respiratory Effort Normal Non-Labored Respiratory Depth Normal Respiratory Pattern Normal Blood Pressure 144/98 H 154/98 H Blood Pressure Mean 113 116 Blood Pressure Source Monitor Blood Pressure Position Semi-Fowlers Blood Pressure Location Right Arm Pulse Ox 98 97 Oxygen Delivery Method Room Air Room Air Weight Weight: 271 lb 3.2 oz Body Mass Index (BMI) 40.0 Physical Exam Const alert, oriented x3 and no apparent distress HEENT normocephalic and head/scalp atraumatic Resp normal respiratory effort Cardio regular rate GI soft to palpation; Negative for non-distended Palpation: tender RUQ; Negative for guarding Extremity no clubbing, cyanosis or edema Neuro CN's II-XII intact bilaterally Psych mental status grossly normal Results Lab / Micro Data 09/12/24 06:10 09/12/24 06:10 Labs: Laboratory Results - last 24 hr 09/11/24 22:30: WBC 8.6, RBC 5.42, Hgb 15.8, Hct 46.0, MCV 84.9, MCH 29.2, MCHC 34.3, RDW Std Deviation 36.4, RDW Coeff of Brad 12.1, Plt Count 297, MPV 11.0, Immature Gran % (Auto) 0.500, Neut % (Auto) 47.7, Lymph % (Auto) 39.0, [place] % (Auto) 10.2 H, Eos % (Auto) 1.9, Baso % (Auto) 0.7, Absolute Neuts (auto) 4.1, Absolute Lymphs (auto) 3.34, Nucleated RBC % 0, Sodium 141, Potassium 3.4 L, Chloride 106, Carbon Dioxide 30.0, Anion Gap 5, BUN 12, Creatinine 1.11, Estim Creat Clear Calc 119.28, Est GFR (MDRD) Af Amer 96, Est GFR (MDRD) Non-Af 79, BUN/Creatinine Ratio 10.8, Glucose 113 H, Calcium 9.0, Total Bilirubin 1.40 H, Direct Bilirubin 0.29, AST 22, ALT 53, Alkaline Phosphatase 86, Total Protein 7.7, Albumin 4.3, Globulin 3.4, Lipase 65 09/12/24 06:10: WBC 15.7 H, RBC 5.39, Hgb 15.8, Hct 45.0, MCV 83.5, MCH 29.3, MCHC 35.1, RDW Std Deviation 35.8, RDW Coeff of Brad 11.9, Plt Count 281, MPV 10.7, Immature Gran % (Auto) 0.700, Neut % (Auto) 85.3 H, Lymph % (Auto) 7.8 L, [place] % (Auto) 5.9, Eos % (Auto) 0.2, Baso % (Auto) 0.1, Absolute Neuts (auto) 13.4 H, Absolute Lymphs (auto) 1.22, Nucleated RBC % 0, Sodium 138, Potassium 3.7, Chloride 107, Carbon Dioxide 24.0, Anion Gap 7, BUN 9, Creatinine 1.07, Estim Creat Clear Calc 122.50, Est GFR (MDRD) Af Amer 100, Est GFR (MDRD) Non-Af 82, BUN/Creatinine Ratio 8.4 L, Glucose 157 H, Calcium 8.9 Imaging Radiology Impression Abdomen/Pelvis CT 09/11/24 22:50 IMPRESSION: 1. No acute abnormality. 2. Small amount of sludge in the gallbladder with no evidence of cholecystitis. Electronically Signed: Jay Hummel DO at 0:00 EDT , Gallbladder Ultrasound 09/12/24 01:09 EST IMPRESSION: 1. Cholelithiasis with no evidence of cholecystitis. 2. Fatty infiltration of the liver and hepatomegaly. Electronically Signed: Jay Hummel DO at 3:33 EST , Assessment & Plan Assessment/Plan (1) Acute cholecystitis: PLAN: Plan Okay for clears today n.p.o. at midnight Continue IV Zosyn Continue pain control Reviewed the anatomy with the patient and discussed the procedure: laparoscopic cholecystectomy with possible cholangiograms, possible open. Review risks including but not limited to bleeding, infection, hernia, bile leak, retained gallstones requiring another procedure ERCP- Endoscopic Retrograde Cholangiopancreatography, injury to another organ (bile ducts, common bile duct, small bowel, etc.) may require transfer to tertiary care facility and conversion to an open procedure. All questions were answered. Beatrice Horowitz M.D. Pager: [phone] [facility] [address] [place] [address], [address] [place] [address] Office: [phone] Charges/Coding Visit Charges Inpatient E&M: 22835 Init Hosp L3
[2024-09-13] VITALS (15 sets, daily range): BP systolic 101–142; BP diastolic 74–93; PULSE 82–98; RESP 16–18; TEMP 36.5–37.3; O2SAT 92–97
[2024-09-13] MEDS: Piperacil/Tazobactam 3.375 GM in 0.9% Normal Saline (50mL MB+) 50 ML IV ×2 (05:23→13:55)
--- NOTE | 2024-09-13 06:00 | EKG12_ITS ---
Test Reason : PRE-OP Blood Pressure : */* mmHG Vent. Rate : 79 BPM Atrial Rate : 79 BPM P-R Int : 154 ms QRS Dur : 92 ms QT Int : 390 ms P-R-T Axes : 34 -18 16 degrees QTcB Int : 447 ms Normal sinus rhythm Normal ECG Confirmed by aDniel Waite ([id number]), editor map ASHLEE ROSARIO ([id number]) on 09/14/2024 9:23:55 AM Referred By: PRAFUL Confirmed By: Daniel Waite
[2024-09-13 06:56] LABS: Absolute Lymphocyte Count 1.91 X10^3/uL (0.83-4.51); Basophil# 0.04 X10^3/uL; Basophil% 0.4 % (0-1); Eosinophil# 0.16 X10^3/uL; Eosinophils% 1.7 % (0-5); Hematocrit 43.5 % (40-54); Hemoglobin 15.1 g/dL (13.0-16.5); Lymphocyte # 1.91 X10^3/ul (0.83-4.51); Lymphocyte % 20.8 % (19-41); Mean Corp Hgb Conc 34.7 g/dL (32-36); Mean Corpuscular Hgb 29.2 pg (27.0-32.0); Mean Platelet Vol. 10.9 fl (6.2-12.0); Monocyte# 1.04 X10^3/uL; Monocyte% 11.3 % (0-10); NRBC Flagged by Analyzer 0 % (0-5); Neutrophil # 5.99 X10^3/uL (2.7-7.7); Neutrophil % 65.5 % (47-70); Platelet Count 209 K/mm3 (150-450); RBC Distribution Width CV 12.1 % (11.6-14.6); RBC Distribution Width SD 36.4 fl (35.1-43.9); Red Blood Count 5.18 M/mm3 (4.6-6.2); White Blood Count 9.2 K/mm3 (4.4-11.0)
[2024-09-13 07:37] LABS: AST(SGOT) 23 U/L (15-37); Alanine Aminotransfer ALT/SGPT 42 U/L (16-61); Albumin, Serum 3.7 g/dL (3.2-5.0); Alkaline Phosphatase 63 U/L (45-117); Anion Gap 5 (5-15); BUN 9 mg/dL (7-18); BUN/Creat Ratio 8.8 RATIO (10-20); Calcium,Total 8.9 mg/dL (8.5-10.1); Chloride 108 mmol/L (98-107); Creatinine, Serum 1.02 mg/dL (0.70-1.30); EST Glomerular Filtration Rate 87 mL/min (>60); Est Glom Filt Rate - Afr Amer 105 mL/min (>60); Estimated Creatinine Clearance 128.51 ml/min; Globulin 3.4 g/dL (2.2-4.2); Glucose 110 mg/dL (74-106); Potassium 3.7 mmol/L (3.5-5.1); Protein, Total 7.1 g/dL (6.4-8.2); Sodium Level 139 mmol/L (136-145)
--- NOTE | 2024-09-13 08:11 | PN.SURG_ITS ---
Subjective Subjective Patient resting comfortably in bed. He denies any abdominal pain, nausea, vomiting. He states he was able to get a good night sleep. He would like to be able to be discharged today back to home if possible following the procedure. Objective Data Objective Data Vital Signs: Vital Signs Temp Pulse Resp BP Pulse Ox O2 Del Method 97.8 F 83 16 119/75 97 Room Air 09/13/24 05:26 09/13/24 05:26 09/13/24 05:26 09/13/24 05:26 09/13/24 05:26 09/13/24 05:26 Oxygen Delivery Method Room Air Weight: 271 lb 3.2 oz Body Mass Index (BMI) 40.0 Intake & Output: Intake and Output for Last 24 Hours 09/11/24 09/12/24 09/13/24 23:59 22:59 23:59 Intake Total 1000 / 1000 1249.17 / 1249.17 50 / 50 Balance 1000 / 1000 1249.17 / 1249.17 50 / 50 Lab / Micro Data 09/13/24 06:06 09/13/24 06:06 Labs: Laboratory Results - last 24 hr 09/13/24 06:06: WBC 9.2, RBC 5.18, Hgb 15.1, Hct 43.5, MCV 84.0, MCH 29.2, MCHC 34.7, RDW Std Deviation 36.4, RDW Coeff of Brad 12.1, Plt Count 209, MPV 10.9, Immature Gran % (Auto) 0.300, Neut % (Auto) 65.5, Lymph % (Auto) 20.8, [place] % (Auto) 11.3 H, Eos % (Auto) 1.7, Baso % (Auto) 0.4, Absolute Neuts (auto) 6.0, Absolute Lymphs (auto) 1.91, Nucleated RBC % 0, Sodium 139, Potassium 3.7, C hloride 108 H, Carbon Dioxide 26.0, Anion Gap 5, BUN 9, Creatinine 1.02, Estim Creat Clear Calc 128.51, Est GFR (MDRD) Af Amer 105, Est GFR (MDRD) Non-Af 87, B UN/Creatinine Ratio 8.8 L, Glucose 110 H, Calcium 8.9, Total Bilirubin 3.40 H, D irect Bilirubin 0.40 H, AST 23, ALT 42, Alkaline Phosphatase 63, Total Protein 7.1, Albumin 3.7, Globulin 3.4 Physical Exam GI GI Narrative: Abdomen- soft, non-tender to RUQ Assessment & Plan Assessment/Plan (1) Acute cholecystitis: PLAN: I am following this patient in conjunction with Dr. Horowitz. She will independently evaluate this patient. Plan for lap erin later today with Dr. Horowitz Hopeful discharge later today Charges/Coding Visit Charges Inpatient E&M: 38218 Subs Hosp L1 (No charge pre-op)
[2024-09-13] MEDS: Pantoprazole Sodium 40 MG in 0.9% Normal Saline (100mL MB+) 100 ML 330 MG IV (09:38)
--- NOTE | 2024-09-13 12:00 | GALL_PTH ---
PATHOLOGY RESULTS PATIENT: JIMENA READ LOC: MS3 U#:[id number] AGE/SX: 39/M ROOM: DE312 RE09/12/[address]: Dr. Beatrice Horowitz MD : 1985 BED: 1 DIS: 09/13/2024 SPEC #: [id number] RECD: 09/14/24 10:59 STATUS: ETTA KAYE #: [id number] RHETT: 09/13/24 12:[address]: Beatrice Horowitz DEPT: SURGICAL PATHOLOGY RECD BY: Rita Love ENTERED: 09/14/24 11:58 SP TYPE: MERY EDWARDS DR: No Primary Care Phys Tissues: Gallbladder, NOS Procedures: Surgery Specimen Level III HEADER OPERATION: Laparoscopic, cholecystectomy with IOC PRE-OP DIAGNOSIS: Acute cholecystitis TISSUE SUBMITTED: Gallbladder MICROSCOPIC DIAGNOSIS Gallbladder, cholecystectomy: Focally hemorrhagic mild acute and chronic cholecystitis with cholelithiasis. 09/15/2024 MICROSCOPIC DESCRIPTION Slides are reviewed. GROSS DESCRIPTION Received is one container labeled with the patient's name and designated gallbladder. The specimen consists of a gallbladder measuring 8.0 cm in length and up to 4.0 cm in diameter. The external surface is pink-carroll, smooth and glistening for the most part. Focally it is granular, hemorrhagic and contains cautery artifact. The gallbladder contains green-yellow mucoid bile and multiple brownish-black stone and stone fragments measuring in aggregate 4.5 x 3.5 x 0.5 cm and <0.1 to 0.4 cm in greatest dimension. The mucosa is bile-stained and without any mass lesions. The gallbladder wall measures up to 0.4 cm in thickness. Spare Parts Clerk sections from the gallbladder and the cystic duct are submitted in one cassette. / SJ: 09/14/2024 TC:3 CPT: 84635
--- NOTE | 2024-09-13 12:25 | PCM.PRE.AN2 ---
ASA Classification* ASA Classification ASA Classification: 2 Assessment & Plan Anesthesia* Anesthesia Assessment Anesthesia Assessment: Discussed sedation and/or anesthesia options, risks, benefits, and alternatives with patient/parents/legal guardian/POA. Questions invited. The patient/parents/legal guardian/POA seems to understand and agrees to proceed with anesthesia plan. Reviewed the physical assessment, medical history, allergy history and patient home medications list prior to surgery/procedure/anesthetic and documented any changes. Performed airway and anesthesia risk assessments. Anesthesia Type Anesthesia Type: General (Consider GlideScope.) History Source History Obtained from:: Patient and Chart Anesthesia Focused Assessment* Temperature: 97.9 F Pulse Rate: 88 Blood Pressure: 131/91 Respiratory Rate: 18 Pulse Ox: 95 Oxygen Delivery Method: Room Air Airway Assessment Mouth opens: 2 cm Mallampati Score: III Teeth Condition: Intact Neck Range of motion (ROM): Limited ROM (Slight decrease in extension) Focused Labs Anesthesia Preop lab: CBC WBC 9.2 K/mm3 (4.4-11.0) 09/13/24 06:06 RBC 5.18 M/mm3 (4.6-6.2) 09/13/24 06:06 Hgb 15.1 g/dL (13.0-16.5) 09/13/24 06:06 Hct 43.5 % (40-54) 09/13/24 06:06 Plt Count 209 K/mm3 (150-450) 09/13/24 06:06 CHEMISTRY Potassium 3.7 mmol/L (3.5-5.1) 09/13/24 06:06 Sodium 139 mmol/L (136-145) 09/13/24 06:06 BUN 9 mg/dL (7-18) 09/13/24 06:06 Creatinine 1.02 mg/dL (0.70-1.30) 09/13/24 06:06 Glucose 110 mg/dL (74-106) H 09/13/24 06:06 COAG Pre-Assessment Diagnosis/Proposed Procedure Planned Operative Procedure(s): Laparoscopic cholecystectomy with cholangiogram, possible open. Anesthesia History Anesthesia History - medical care administrator: Anesthesia History - medical care administrator Hx Hospitalization No 02/24/23 15:44 Any Problems With Anesthesia No 09/12/24 09:06 Cholinesterase deficiency No 09/12/24 09:06 You/Your Family Experience No 09/12/24 09:06 fever (hyperthermia) with Relationship Recent Exposure to Contagious No 09/12/24 09:06 Disease Does patient have nerve No 09/12/24 09:06 stimulator Patient instructed to have device shut off --Does patient have Pacemaker or ICD? When Was Last Pacemaker Check QUESTION #4 FULL TEXT: You/Your Family Experience fever (hyperthermia) with Anesthesia Last Oral Intake Last Oral intake: Last Oral Intake NPO since Meds taken in AM with sips of water? Meds patient instructed to take am of surgery Any additional information?: Yes NPO since: 00:00 PONV PONV - medical care administrator: PONV - medical care administrator Female HX of Motion Sickness HX of N/V After Surgery Non-Smoker Duration of Surgery greater than 60 minutes Number of Risk Factors PONV Score Height & Weight Height & Weight: Anesthesia: Height & Weight Height 5 ft 9 in 09/12/24 05:51 Weight: 123.014 kg 09/12/24 05:51 Body Mass Index (BMI) 40.0 09/12/24 05:51 Respiratory Assessment Respiratory Assessment - medical care administrator: Respiratory Tract Infection Hx - medical care administrator Hx Respiratory Tract Infection No 09/12/24 09:06 Any additional information?: Yes Hx Respiratory Tract Infection: Yes (Patient had a cold 2 weeks ago. Patient is currently completely recovered.) STOP Sleep Apnea STOP Sleep Apnea - medical care administrator: STOP Sleep Apnea - medical care administrator Hx Hypertension No 09/12/24 05:52 Hx Sleep Apnea No 09/12/24 05:52 CPAP BIPAP Do you snore loudly (louder No 09/12/24 05:52 than talking or can be heard Do you often feel tired/ No 09/12/24 05:52 fatigued/ sleepy during daytime? Has anyone observed you stop Yes 09/12/24 05:52 breathing during sleep? STOP Results Negative 09/12/24 05:52 QUESTION #5 FULL TEXT : Do you snore loudly (louder than talking or can be heard through closed doors)? Tobacco Use History Tobacco Use History - medical care administrator: Tobacco Use History - medical care administrator Tobacco Use Smoking Status Never smoker 09/12/24 05:52 Hx Tobacco Use No 09/12/24 05:52 Years Smoking Packs Smoked per Day Smoking Cessation Date was within the last 15 years Hx Smoking Cessation Date Hx Smoking Cessation Counseling Hematologic Medial History Hematologic Hx - medical care administrator: Hematologic Medical Hx - temp recruiter Hx of Blood Transfusion No 09/12/24 05:52 Hx of Transfusion in last 3 No 09/12/24 05:52 Months Date of Last Transfusion (if within last 3 months) Ever experience any problems No 09/12/24 05:52 with transfusion(s)? Specify any problems Hx of Preganancy in last 3 N/A 09/12/24 05:52 Months Nurse Filling Out Transfusion JLAMP 09/12/24 05:52 & Questions: Date: 09/12/24 09/12/24 05:52 Time: 05:53 09/12/24 05:52 Patient unable to answer at this time (ie. confused, unrespo /Reproduction History /Reproductive History - medical care administrator: /Reproductive Hx- medical care administrator Hx Now Gestational Age (in weeks): EDC: Hx Hx Para Hx Section SAB Active Medications Active Medications: Current Medications Generic Name Dose Route Start Last Admin Trade Name Freq PRN Reason Stop Dose Admin Acetaminophen 650 mg 09/12/24 05:46 Acetaminophen 325 Mg Tablet PO Q6H PRN PRN Pain Score 1-10 Hydromorphone HCl 0.5 - 1 mg 09/12/24 05:46 Hydromorphone 0.5 Mg/0.5 Ml Syringe IV Q2H PRN PRN Pain Score 1-10 Piperacillin Sod/Tazobactam 50 mls @ 12.5 mls/hr 09/12/24 14:00 09/13/24 09:23 Sod 3.375 gm/ Sodium Chloride IV Infused Q8 SKYLER Infusion Sodium Chloride 500 mls @ 15 mls/hr 09/12/24 05:47 IV .[id number] PRN Saline Flush Sodium Chloride 500 mls @ 15 mls/hr 09/12/24 05:47 IV .[id number] PRN Additional IVPB Infusion Pantoprazole Sodium 40 mg/ 110 mls @ 330 mls/hr 09/12/24 22:00 09/13/24 09:58 Sodium Chloride IV Infused Q12 SKYLER Infusion Ketorolac Tromethamine 15 mg 09/12/24 05:46 Ketorolac 15 Mg/Ml Vial IV Q6H PRN PRN Pain Score 1-10 Ondansetron HCl 4 mg 09/12/24 05:46 Ondansetron 4 Mg/2 Ml Vial IV Q8H PRN PRN NAUSEA Oxycodone HCl 5 - 10 mg 09/12/24 05:46 Oxycodone 5 Mg Tablet PO Q4H PRN PRN Pain Score 1-10 Sodium Chloride 10 - 40 ml 09/12/24 05:47 0.9% Saline Lock 10 Ml Syringe IV UD PRN SALINE FLUSH PFSH Medical History Kidney stones Gastric reflux Non-smoker Home Medications ?Medication ?Instructions ?Recorded ?Last Taken ?Type pantoprazole 40 mg tablet,delayed 40 mg PO DAILY #30 TABLETS 07/02/24 09/11/24 Rx release Allergy/AdvReac Type Severity Reaction Status Date / Time No Known Allergies Allergy Verified 09/11/24 22:17 Surgical History (Updated 09/13/24 @ 12:[address] David May MD) Hx of esophagogastroduodenoscopy Hx of wisdom tooth extraction Social History Smoking Status: Never smoker Review of Systems (Anesthesia) ROS Narrative System reviewed and no additional complaints, except as documented.
--- NOTE | 2024-09-13 13:41 | RAD_ITS ---
STUDY: INTRAOPERATIVE CHOLANGIOGRAM. REASON FOR EXAM: Male, 39 years old. LAP JAZMIN FLUOROSCOPY TIME (if supplied): ( 23 seconds ) minutes/seconds. 16.9 mGy. TECHNIQUE: An intraoperative cholangiogram was performed by the surgeon. Imaging was submitted. COMPARISON: None. FINDINGS: Attempted cholangiogram. Not diagnostic. RAD/Cholangiogram/ O R,Initial IMPRESSION: Not diagnostic. Electronically Signed: Benny Castro MD at 14:39 EST ,
[2024-09-13] MEDS: Bupivacaine Mpf 0.5% 30 ML VIAL (14:34)
--- NOTE | 2024-09-13 14:45 | PCM.OPRPT ---
Operative Report (Standard) Operative Information Surgery/Procedure Performed: Laparoscopic cholecystectomy with attempted cholangiograms Surgeon: Beatrice Horowitz Date of Procedure: 09/13/24 Procedure Start Time: 13:37 Procedure Stop Time: 14:52 Pre-Operative Diagnosis: Acute cholecystitis Post-Operative Diagnosis: Same Select all DRAINS/GRAFTS/IMPLANTS that apply: None Type of Anesthesia: General/Supplemental Estimated Blood Loss: 10 cc Specimen collected: Yes Description of specimen(s) removed: Gallbladder Description of surgery: Indications: this is a 39 year-old male who developed increased abdominal pain/nausea/vomiting and on workup was found to have gallbladder sludge, with a normal common bile duct. Laparoscopic cholecystectomy was elected. Description procedure: The patient was placed on operating table in supine position. A timeout was completed verifying correct patient, procedure, site, position and special equipment prior to beginning procedure. General Anesthesia was induced. The abdomen was prepped and draped in usual sterile fashion. An incision was made in the natural skin line above the umbilicus. The fascia was elevated and incised. The peritoneum was elevated and incised. Entry into the peritoneum was confirmed visually and no bowel was noted in the vicinity of the incision. Camacho trocar was placed. The abdomen was insufflated with carbon dioxide to a pressure of 12-15 mmHg. Patient tolerated insufflation well. The laparoscope was then inserted and abdomen inspected. No injuries from initial trocar placement were noted. Additional trochars were then inserted in the following locations 5 mm trocar in the epigastrium and 2 more 5 mm trochars along the right costal margin. The abdomen was inspected gallbladder was noted to be inflamed and tense with omentum attached to the dome. The table is placed in reverse Trendelenburg position with the right side up. The adhesions between the gallbladder and omentum were taken down carefully. The gallbladder was distended aspiration needle was used to decompress. The dome of the gallbladder was grasped with atraumatic grasper passed through the lateral port and retracted over the dome of the liver. Infundibulum was then grasped with atraumatic grasper through the midclavicular port and retracted to the right lower quadrant. This maneuver exposed Calot's triangle. The peritoneum overlying the gallbladder infundibulum was then incised and cystic duct and artery identified and circumferentially dissected. Burdick catheter was attempted for cholangiograms, contrast filled gallbladder question of due to thickening of the wall?cholangiograms were aborted. The cystic duct and artery were then doubly clipped and divided close to the gallbladder. The gallbladder then dissected from its peritoneal attachments by electrocautery. Hemostasis was checked and the gallbladder and contained stones were removed using the endoscopic retrieval bag through the umbilical port. The gallbladder is passed off table as specimen. The gallbladder fossa was irrigated with saline and hemostasis obtained. There is no evidence of bleeding from the gallbladder fossa or cystic artery leakage of bile from the cystic duct stump. Secondary trochars removed under direct vision. No bleeding was noted the trocar sites. The laparoscope was withdrawn and umbilical trocar removed. The abdomen was allowed to collapse. The fascia of the 12 mm trocar was closed with a [id number] 0 Vicryl suture. The skin was closed with sutures of 4-0 Monocryl and Steri-Strips. The patient was extubated. The patient tolerated procedure well and was taken to the postanesthesia care unit in stable condition. Surgical Findings: Acute cholecystitis Clearing Hand customs appraiser: Yes Ultra Sound Technician: Jessica Montilla Tasks completed by first officer and flight instructor: Opening & closing and Retracting Complications Complications: No
--- NOTE | 2024-09-13 14:49 | DCINST_ITS ---
Discharge Instructions Diet Discharge Diet: Light diet - advance as tolerated Activity Discharge Activity: May Not Drive (while taking narcotic pain medications.) May shower in (days): 1 Lifting Restrictions: no lifting >20 lbs x 2 wks, no strenuous exercise for 4 wks Dressing / Incision Call your doctor if your incision/area has: Continuous Slow Oozing, Sudden Increased Bleeding, Increased Pain/ Swelling, Increased Redness, Foul Smelling Discharge and Swelling at the incision site Call your doctor if you observe: Fever of 101 or Higher Remove Dressing in: 2 days Cleanse incision/area with: Soap & Water Additional Dressing/Incision Instructions:: Steri-Strips will fall off in 7 to 10 days, if they do not fall off okay to remove after 10 days. Follow Up Care Please Follow Up With: Beatrice Horowitz MD When: Call the office for a follow-up appointment 2 weeks; after 5 PM and on the weekends call [phone] with any concerns. Test Results: Test results from this visit will be discussed in further detail at your follow- up appointment, if applicable. Discharge Plan Admission Admit Date/Time: 09/12/24 05:23 Attending Provider: Beatrice Horowitz Primary Care Provider: Mela Mabry Primary Instructions Additional Instructions / Restrictions: Okay to take ibuprofen 400-600 mg PO q6hr PRN and Tylenol 650 to 1000 mg p.o. every 6 hours Along with the oxycodone. Take all pain meds with food. Oxycodone can cause constipation recommend taking daily stool softener (i.e. Colace/docusate) while taking the pain meds. Recommend starting some MiraLAX tomorrow if no bowel movement. If still no bowel movement the following day take another dose of MiraLAX and then the next day if no bowel movement would recommend taking magnesium citrate half the bottle and waiting 4-6 hours if still no results take the other half the bottle. Discharge Orders/Prescriptions Prescriptions: New oxycodone 5 mg capsule 5 mg PO Q6H PRN (Reason: pain) 3 Days Qty: 10 0RF Continued pantoprazole 40 mg tablet,delayed release (DR/EC) 40 mg PO DAILY Qty: 30 3RF Referrals / Follow Up: Care PhysicianMela Primary [Primary Care Provider] - Disposition Disposition (needs filled in before D/C Order can be placed): Home, Self Care
--- NOTE | 2024-09-13 15:01 | PCM.POST.ANE ---
Anesthesia: Postop Eval I Current Vital Signs Temperature: 97.7 F Pulse Rate: 90 Blood Pressure: 122/77 Respiratory Rate: 18 Pulse Ox: 96 Oxygen Delivery Method: Simple Mask Oxygen Flow Rate (L/min): 6 Assessment Airway patent: Yes Spontaneous unlabored respirations: Yes Mental status: Asleep nausea: No Vomiting: No Anesthesia Complication: No Fluid Hydration Crystalloid volume administer (ml): 500 Total IV fluid infused: 500 Progress Note Anesthesia document: Postop Eval 1 completed: Yes
--- NOTE | 2024-09-13 15:33 | POSTOPAN2_ITS ---
Anesthesia Postop Eval I Sum Postop Eval Completion status Anesthesia document: Postop Eval 1 completed: Yes Anesthesia Postop Eval I Summary Anesthesia Postop Eval I Summary: Anesthesia Postop Eval I: Assessment Summary Airway patent Yes 09/13/24 15:02 [email or web address] Spontaneous unlabored Yes 09/13/24 15:02 [email or web address] respirations Mental status Asleep 09/13/24 15:02 [email or web address] nausea No 09/13/24 15:02 [email or web address] [email or web address] Vomiting No 09/13/24 15:02 [email or web address] Anesthesia Postop Eval I: Fluid Summary Crystalloid volume administer 500 09/13/24 15:02 [email or web address] (ml) Colloids volume administered ( ml) Blood Product volume administered (ml) Total IV fluid infused 500 09/13/24 15:02 [email or web address] Anesthesia Postop Eval I: Summary Notes Anesthesia Complication No 09/13/24 15:02 [email or web address] Anesthesia Complication Comment: Post-operative progress note Anesthesia: Postop Eval II Evaluation Mental status: Awake and Calm Pain Level: 1 nausea: No Vomiting: No Complications Anesthesia Complication: No
--- NOTE | 2024-09-13 15:33 | PCM.POSTANE2 ---
Anesthesia Postop Eval I Sum Postop Eval Completion status Anesthesia document: Postop Eval 1 completed: Yes Anesthesia Postop Eval I Summary Anesthesia Postop Eval I Summary: Anesthesia Postop Eval I: Assessment Summary Airway patent Yes 09/13/24 15:02 [email or web address] Spontaneous unlabored Yes 09/13/24 15:02 [email or web address] [email or web address] respirations Mental status Asleep 09/13/24 15:02 BINDERY [email or web address] nausea No 09/13/24 15:02 BINDERY [email or web address] Vomiting No 09/13/24 15:02 BINDERY [email or web address] Anesthesia Postop Eval I: Fluid Summary Crystalloid volume administer 500 09/13/24 15:02 BINDERY [email or web address] (ml) Colloids volume administered ( ml) Blood Product volume administered (ml) Total IV fluid infused 500 09/13/24 15:02 BINDERY [email or web address] Anesthesia Postop Eval I: Summary Notes Anesthesia Complication No 09/13/24 15:02 BINDERY [email or web address] Anesthesia Complication Comment: Post-operative progress note Anesthesia: Postop Eval II Evaluation Mental status: Awake and Calm Pain Level: 1 nausea: No Vomiting: No Complications Anesthesia Complication: No
[2024-09-13] MEDS: Ketorolac 15 MG/ML Vial IV (16:16)
--- NOTE | 2024-09-13 17:07 | PHA.DC_ITS ---
Pharmacy [facility] has performed discharge medication reconciliation and counseling for this patient. Contacted Dr. Horowitz, initial fax did not go through to retail pharmacy. She will resend, transmission was completed. 1. OXYCODONE 5MG PO Q6H PRN PAIN The patient's discharge medication list was reviewed for discrepancies and di screpancies were resolved. The patient was counseled on the following discharge medications and changes in medications for homegoing were reviewed. The Reason for Use, instructions for use, and potential side effects were reviewed for all new medications. The patient's questions regarding all of their medications were answered. The patient was able to verbally demonstrate an understanding of their discharge medications. Medications at Discharge Home Medications pantoprazole 40 mg tablet,delayed release 40 mg PO DAILY #30 TABLETS 07/02/24 oxycodone 5 mg capsule 5 mg PO Q6H PRN pain 3 days #10 caps 09/13/24
== END 2024-09-13 19:29 | disposition home or self-care (01) ==
LOC: ED 09-12 03:25 → MS3 09-12 05:36
PROVIDERS: Admitting Provider Surgery; Emergency Provider Emergency Medicine; Visit Provider Surgery
PROC: (CPT 47610; principal; 2024-09-13 11:40)
DX: K80.12 Calculus of gallbladder with acute and chronic cholecystitis without obstruction (principal); K21.9 Gastro-esophageal reflux disease without esophagitis
CPT/HCPCS: 47563; 00790; 36415; 74177; 74300; 76000; 76705; 80048; 80076; 83690; 85025; 88304; 93005; 94668; 96361; 96365; 96366; 96367; 96368; 96375; 96376; 99221; 99285; J7030; J7040; Q9967; A4216; G0378; J2405